=== PATIENT | male | born 1950 | race African-American/Black ===

== ENCOUNTER 2018-12-13 16:37 | Emergency (ER) | payer OTHER ==
[2018-12-13] MEDS ORDERED: IPRATROPIUM BROM 0.5MG/2.5ML ONE (18:11)
[2018-12-13] MEDS ORDERED: ALBUTEROL 2.5 MG/3 ML NEB SOL ONE (18:11)
[2018-12-13] MEDS ORDERED: HYDROCODONE/CHLORPHEN 5 ML/OSYR ONE (18:12)
--- NOTE | 2018-12-13 18:13 | RAD REPORT ---
EXAM DESCRIPTION: Clay Single View12/13/2018 6:02 pm CLINICAL HISTORY: Cough COMPARISON: 2017 FINDINGS: The lungs appear clear of acute infiltrate. The heart is mildly enlarged. Elevation left hemidiaphragm persists IMPRESSION: No acute abnormalities displayed
[2018-12-13 18:38] LABS: Absolute Lymphocytes (CBC) 1.7 K/uL (0.7-4.9); Absolute Monocytes 1.1 K/uL (0.1-1.3); Absolute Neutrophil 2.5 K/uL (1.8-8.0); Basophils % 0.9 % (0-1.3); Eosinophils % 3.5 % (0-4.4); Hematocrit 39.3 % (39.6-49.0); Lymphocytes % 30.7 % (15.3-44.8); MPV 10.1 fL (7.6-11.3); Monocytes % 19.8 % (3.3-12.3); RBC Red Blood Cell Count 4.48 M/uL (4.33-5.43)
[2018-12-13 18:49] LABS: Potassium 3.8 mmol/L (3.5-5.1)
--- NOTE | 2018-12-13 18:57 | ER ---
Nurse's Notes [facility] Name: Tang Lewis Age: 68 yrs Sex: Male : 1950 Arrival Date: 12/13/2018 Time: 16:40 Bed 19 Private MD: Orlando Abraham Diagnosis: Acute bronchitis Presentation: 12/13 17:00 Presenting complaint: Nonproductive cough, chest pain, pain with cough, chills, sv malaise, nausea, and dizziness x 4 days. Transition of care: patient was not received from another setting of care. Onset of symptoms was December 10, 2018. Risk Assessment: Do you want to hurt yourself or someone else? Patient reports no desire to harm self or others. Care prior to arrival: None. 17:00 Method Of Arrival: Ambulatory sv 17:00 Acuity: [place] 3 sv 17:30 Initial Sepsis Screen: Does the patient meet any 2 criteria? No. Patient's initial em sepsis screen is negative. Does the patient have a suspected source of infection? No. Patient's initial sepsis screen is negative. Historical: - Allergies: 17:02 NSAIDS; sv - Home Meds: 17:02 colchicine 0.6 mg Oral cap QID PRN [Active]; BP med [Active]; sv - PMHx: 17:02 Hypertension; Gout; sv - PSHx: 17:02 Knee surgery; sv - Immunization history:: Adult Immunizations up to date. - Social history:: Smoking status: Patient/guardian denies using tobacco. - Ebola Screening: : No symptoms or risks identified at this time. Screenin:30 Abuse screen: Denies threats or abuse. Nutritional screening: No deficits noted. em Tuberculosis screening: No symptoms or risk factors identified. Fall Risk None identified. Assessment: 17:30 General: Appears in no apparent distress. comfortable, Behavior is calm, cooperative, em Denies fever. Pain: Complains of pain in chest Pain does not radiate. Pain began 4 days. Neuro: Level of Consciousness is awake, alert, obeys commands, Oriented to person, place, time, situation, Reports dizziness. Cardiovascular: Heart tones S1 S2 present Capillary refill < 3 seconds Patient's skin is warm and dry. Respiratory: Reports shortness of breath on exertion cough that is productive, Airway is patent Respiratory effort is even, unlabored, Respiratory pattern is regular, symmetrical, Breath sounds are diminished in right posterior upper lobe, right posterior middle lobe and right posterior lower lobe Onset: The symptoms/episode began/occurred 4 days ago, the patient has mild shortness of breath. Derm: Skin is intact, is healthy with good turgor, Skin is pink, warm \T\ dry. Musculoskeletal: Capillary refill < 3 seconds, Range of motion: intact in all extremities. 17:45 Reassessment: I agree with previous assessment. hb 18:37 Reassessment: Patient appears in no apparent distress at this time. Patient and/or em family updated on plan of care and expected duration. Pain level reassessed. Patient is alert, oriented x 3, equal unlabored respirations, skin warm/dry/pink. Patient denies pain at this time. Patient states symptoms have improved. Vital Signs: 17:00 BP 140 / 66; Pulse 79; Resp 16; Temp 99.4; Pulse Ox 97% on R/A; Pain 8/10; sv 18:30 BP 143 / 75; Pulse 94; Resp 18; Pulse Ox 99% on R/A; em ED Course: 16:40 Patient arrived in ED. mr 16:41 Orlando Abraham MD is Private Physician. mr 17:00 Triage completed. sv 17:02 Arm band placed on. sv 17:07 Grant Prado LVN is Primary Nurse. em 17:18 Kenji Meyer PA is PHCP. jr8 17:18 Sundeep Nagel MD is Attending Physician. jr8 17:30 Patient has correct armband on for positive identification. Placed in gown. Bed in low em position. Call light in reach. Side rails up X2. Pulse ox on. NIBP on. 17:30 Patient maintains SpO2 saturation greater than 95% on room air. em 18:02 XRAY Chest (1 view) - STROKE In Process Unspecified. EDMS 18:56 Orlando Abraham MD is Referral Physician. jr8 19:09 No provider procedures requiring assistance completed. em 19:09 Patient did not have IV access during this emergency room visit. em Administered Medications: 18:05 Drug: Tussionex Pennkinetic ER 5 ml Route: PO; em 19:07 Follow up: Response: No adverse reaction; Marked relief of symptoms em 18:10 Drug: Albuterol - atroVENT (3:1) (2.5 mg - 0.5 mg) 3 ml Route: Nebulizer; em 19:07 Follow up: Response: No adverse reaction; Marked relief of symptoms em Outcome: 18:56 Discharge ordered by MD. mtz 19:13 Discharged to home ambulatory. em 19:13 Condition: good 19:13 Discharge instructions given to patient, Instructed on discharge instructions, follow up and referral plans. medication usage, Demonstrated understanding of instructions, follow-up care, medications, Prescriptions given X 2. 19:14 Patient left the ED. em Signatures: Dispatcher [employer] Keara Lopez RN RN Taylor Olivier mr Grant Prado, MEDICAL DEVICE ASSEMBLER MEDICAL DEVICE ASSEMBLER em Kenji Meyer PA PA jr8 Baxter, Heather RN RN Corrections: (The following items were deleted from the chart) 17:01 17:00 Presenting complaint: Nonproductive cough, chills, malaise, nausea, and dizziness sv x 4 days sv
--- NOTE | 2018-12-13 18:57 | EDPHYS ---
Physician Documentation [facility] Name: Tang Lewis Age: 68 yrs Sex: Male : 1950 Arrival Date: 12/13/2018 Time: 16:40 Bed 19 Private MD: Orlando Abraham ED Physician Sundeep Nagel HPI: 12/13 18:03 This 68 yrs old Black Male presents to ER via Ambulatory with complaints of Chest jr8 Tightness, Dizziness, Cough. 18:03 The patient or guardian reports cough, that is intermittent, described as moderate, jr8 with no sputum, difficulty breathing. Onset: The symptoms/episode began/occurred gradually, 4 day(s) ago. Severity of symptoms: At their worst the symptoms were moderate, in the emergency department the symptoms are unchanged. Modifying factors: The symptoms are alleviated by nothing, the symptoms are aggravated by nothing. Associated signs and symptoms: Pertinent negatives: chest pain, ear ache, fever, nausea, rhinorrhea, sore throat, vomiting. It is unknown whether or not the patient has had similar symptoms in the past. The patient has not recently seen a physician. Continued cough and congestion with shortness of breath that started about 4 days ago. Worse at night when lying down . Historical: - Allergies: 17:02 NSAIDS; sv - Home Meds: 17:02 colchicine 0.6 mg Oral cap QID PRN [Active]; BP med [Active]; sv - PMHx: 17:02 Hypertension; Gout; sv - PSHx: 17:02 Knee surgery; sv - Immunization history:: Adult Immunizations up to date. - Social history:: Smoking status: Patient/guardian denies using tobacco. - Ebola Screening: : No symptoms or risks identified at this time. ROS: 18:03 Eyes: Negative for injury, pain, redness, and discharge, ENT: Negative for injury, jr8 pain, and discharge, Neck: Negative for injury, pain, and swelling, Cardiovascular: Negative for chest pain, palpitations, and edema, Abdomen/GI: Negative for abdominal pain, nausea, vomiting, diarrhea, and constipation, Back: Negative for injury and pain, MS/Extremity: Negative for injury and deformity, Skin: Negative for injury, rash, and discoloration, Neuro: Negative for headache, weakness, numbness, tingling, and seizure. 18:03 Respiratory: Positive for cough, shortness of breath. Exam: 18:03 Eyes: Pupils equal round and reactive to light, extra-ocular motions intact. Lids and jr8 lashes normal. Conjunctiva and sclera are non-icteric and not injected. Cornea within normal limits. Periorbital areas with no swelling, redness, or edema. ENT: Nares patent. No nasal discharge, no septal abnormalities noted. Tympanic membranes are normal and external auditory canals are clear. Oropharynx with no redness, swelling, or masses, exudates, or evidence of obstruction, uvula midline. Mucous membranes moist. Neck: Trachea midline, no thyromegaly or masses palpated, and no cervical lymphadenopathy. Supple, full range of motion without nuchal rigidity, or vertebral point tenderness. No Meningismus. Cardiovascular: Regular rate and rhythm with a normal S1 and S2. No gallops, murmurs, or rubs. Normal PMI, no JVD. No pulse deficits. Abdomen/GI: Soft, non-tender, with normal bowel sounds. No distension or tympany. No guarding or rebound. No evidence of tenderness throughout. Back: No spinal tenderness. No costovertebral tenderness. Full range of motion. Skin: Warm, dry with normal turgor. Normal color with no rashes, no lesions, and no evidence of cellulitis. MS/ Extremity: Pulses equal, no cyanosis. Neurovascular intact. Full, normal range of motion. Neuro: Awake and alert, GCS 15, oriented to person, place, time, and situation. Cranial nerves II-XII grossly intact. Motor strength 5/5 in all extremities. Sensory grossly intact. Cerebellar exam normal. Normal gait. 18:03 Respiratory: the patient does not display signs of respiratory distress, Respirations: normal, symetrical, no use of accessory muscles, no grunting, no evidence of nasal flaring, no prolonged exhalations, no pursed lip breathing, no retractions, no shallow respirations, no splinting, no tachypnea, Breath sounds: wheezing: expiratory that is mild, is heard in the left posterior lower lobe, right posterior middle lobe and right posterior lower lobe. Vital Signs: 17:00 BP 140 / 66; Pulse 79; Resp 16; Temp 99.4; Pulse Ox 97% on R/A; Pain 8/10; sv 18:30 BP 143 / 75; Pulse 94; Resp 18; Pulse Ox 99% on R/A; em MDM: 17:18 Patient medically screened. jr8 18:55 Data reviewed: vital signs, nurses notes, lab test result(s), radiologic studies, plain jr8 films. Data interpreted: Pulse oximetry: on room air is 97 %. Interpretation: normal. Test interpretation: by ED physician or midlevel provider: plain radiologic studies, Negative for acute findings on CXR. Counseling: I had a detailed discussion with the patient and/or guardian regarding: the historical points, exam findings, and any diagnostic results supporting the discharge/admit diagnosis, lab results, radiology results, the need for outpatient follow up, a family practitioner, to return to the emergency department if symptoms worsen or persist or if there are any questions or concerns that arise at home. Response to treatment: the patient's symptoms have markedly improved after treatment. 12/13 17:41 Order name: CBC with Diff; Complete Time: 18:40 [facility] 12/13 17:41 Order name: Basic Metabolic Panel; Complete Time: 18:50 8 12/13 17:42 Order name: XRAY Chest (1 view) - STROKE; Complete Time: 18:15 [facility] Administered Medications: 18:05 Drug: Tussionex Pennkinetic ER 5 ml Route: PO; em 19:07 Follow up: Response: No adverse reaction; Marked relief of symptoms em 18:10 Drug: Albuterol - atroVENT (3:1) (2.5 mg - 0.5 mg) 3 ml Route: Nebulizer; em 19:07 Follow up: Response: No adverse reaction; Marked relief of symptoms em Disposition: 12/14 07:16 Co-signature as Attending Physician, Sundeep Nagel MD I agree with the assessment and jose alfredo plan of care. Disposition: 12/13/18 18:56 Discharged to Home. Impression: Acute bronchitis. - Condition is Stable. - Discharge Instructions: Acute Bronchitis, Adult. - Prescriptions for Prednisone 20 mg Oral Tablet - take 1 tablet by ORAL route once daily for 5 days; 5 tablet. Guaifenesin AC 10- 100 mg/5 mL Oral Liquid - take 10 milliliter by ORAL route every 4 hours As needed; 240 milliliter. - Medication Reconciliation Form, Thank You Letter, Antibiotic Education, Prescription Opioid Use form. - Follow up: Orlando Abraham MD; When: 5 - 6 days; Reason: Recheck today's complaints, Continuance of care, Re-evaluation by your physician. - Problem is new. - Symptoms have improved. Signatures: Dispatcher [employer] Keara Lopez, YURI RN Sundeep Schofield MD MD cha Munoz, Edgar, MARKETING WRITER MARKETING WRITER em Kenji Meyer, PA PA jr8 Corrections: (The following items were deleted from the chart) 12/13 19:07 17:42 IV Saline Lock ordered. jr8 em 19:14 18:56 12/13/2018 18:56 Discharged to Home. Impression: Acute bronchitis. Condition is em Stable. Forms are Medication Reconciliation Form, Thank You Letter, Antibiotic Education, Prescription Opioid Use. Follow up: Orlando Abraham; When: 5 - 6 days; Reason: Recheck today's complaints, Continuance of care, Re-evaluation by your physician. Problem is new. Symptoms have improved. jr8
[2018-12-13 19:19] VITALS: TEMP 99.4
[2018-12-13 19:20] VITALS: BP 143/75; O2SAT 99
== END 2018-12-13 19:14 | disposition home or self-care (01) ==
LOC: ER 16:37
DX: J20.9 Acute bronchitis, unspecified (principal); I10 Essential (primary) hypertension; M10.9 Gout, unspecified
CPT/HCPCS: 36415; 71045; 80048; 85025; 94640; 99285

== ENCOUNTER 2019-04-10 20:22 | Emergency (ER) | payer OTHER ==
[2019-04-10] MEDS ORDERED: ACETAMINOPHEN 500 MG TAB ONE (20:46)
--- NOTE | 2019-04-10 21:09 | RAD REPORT ---
EXAM DESCRIPTION: RAD -Hand Left 3 View - 04/10/2019 8:56 pm CLINICAL HISTORY: Left hand pain FINDINGS: No fracture or dislocation is seen. No bone or joint abnormality
[2019-04-10] MEDS ORDERED: HYDROCODONE/APAP 7.5/325 MG TAB ONE (21:30)
--- NOTE | 2019-04-10 21:36 | ER ---
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 Transition of care: patient was not received from another setting of care. Onset of symptoms is unknown. Risk Assessment: Do you want to hurt yourself or someone else? Patient reports no desire to harm self or others. Initial Sepsis Screen: Does the patient meet any 2 criteria? No. Patient's initial sepsis screen is negative. Does the patient have a suspected source of infection? No. Patient's initial sepsis screen is negative. Care prior to arrival: None. 20:38 Method Of Arrival: Ambulatory ak1 20:38 Acuity: [place] 4 ak1 Triage Assessment: 20:39 General: Appears in no apparent distress. Behavior is calm, cooperative. ak1 Historical: - Allergies: 20:39 NSAIDS; ak1 - Home Meds: 20:39 colchicine 0.6 mg Oral cap QID PRN [Active]; Lisinopril Oral [Active]; ak1 - PMHx: 20:39 Gout; Hypertension; ak1 - PSHx: 20:39 Knee surgery; neck sx - hardware; ak1 - Immunization history:: Adult Immunizations unknown. - Social history:: Smoking status: Patient/guardian denies using tobacco. - Ebola Screening: : No symptoms or risks identified at this time. Screenin:40 Abuse screen: Denies threats or abuse. Denies injuries from another. Nutritional ak1 screening: No deficits noted. Tuberculosis screening: No symptoms or risk factors identified. Fall Risk None identified. Assessment: 20:41 General: Appears in no apparent distress. uncomfortable, Behavior is calm, cooperative, rr5 appropriate for age. Pain: Complains of pain in palmar aspect of proximal phalanx of left little finger Pain radiates to left hand Pain currently is 9 out of 10 on a pain scale. Quality of pain is described as aching, Pain began gradually, Is intermittent. Neuro: Level of Consciousness is awake, alert, obeys commands, Oriented to person, place, time. Cardiovascular: Capillary refill < 3 seconds Patient's skin is warm and dry. Respiratory: Airway is patent Respiratory effort is even, unlabored, Respiratory pattern is regular, symmetrical. GI: No signs and/or symptoms were reported involving the gastrointestinal system. : No signs and/or symptoms were reported regarding the genitourinary system. EENT: No signs and/or symptoms were reported regarding the EENT system. Derm: Skin is intact, Skin temperature is warm. Musculoskeletal: Circulation, motion, and sensation intact. Capillary refill < 3 seconds, Range of motion: limited in DIP of left little finger, PIP of left little finger and MCP of left little finger Swelling present in left hand. 21:50 Reassessment: Patient appears in no apparent distress at this time. Patient is alert, rr5 oriented x 3, equal unlabored respirations, skin warm/dry/pink. discharge instruction given and explained without complaints made. Patient states feeling better. Patient states symptoms have improved. 21:58 Reassessment: Patient appears in no apparent distress at this time. Patient is alert, rr5 oriented x 3, equal unlabored respirations, skin warm/dry/pink. splint rechecked by ED provider and discharge. Vital Signs: 20:37 BP 144 / 73; Pulse 82; Resp 16; Temp 97.6(TE); Pulse Ox 97% on R/A; Weight 122.47 kg ak1 (R); Height 6 ft. 1 in. (185.42 cm) (R); Pain 9/10; 21:45 BP 116 / 63; Pulse 75; Resp 17; Pulse Ox 99% on R/A; Pain 7/10; rr5 20:37 Body Mass Index 35.62 (122.47 kg, 185.42 cm) ak1 ED Course: 20:27 Patient arrived in ED. es 20:27 Orlando Abraham MD is Private Physician. es 20:37 Arm band placed on Patient placed in an exam room, on a stretcher, on pulse oximetry, ak1 Patient notified of wait time. 20:39 Triage completed. ak1 20:39 Sundeep Ellington PA is PHCP. cp 20:39 Armando Beach MD is Attending Physician. cp 20:41 Garay, [place], RN is Primary Nurse. rr5 20:41 Patient has correct armband on for positive identification. Bed in low position. Call ak1 light in reach. Side rails up X 1. Pulse ox on. NIBP on. 20:58 XRAY Hand LEFT 3 View In Process Unspecified. EDMS 21:51 Orthoglass splint: Ulnar gutter/Boxer splint applied on left forearm. done by member of technical staff rr5 [place]. Administered Medications: 20:48 Drug: Tylenol 1000 mg Route: PO; rr5 21:59 Follow up: Response: No adverse reaction rr5 21:32 Drug: Hydrocodone-Acetaminophen (7.5 mg-325 mg) 1 tabs Route: PO; rr5 21:32 Follow up: rass 0 rr5 21:59 Follow up: Response: No adverse reaction; RASS: Alert and Calm (0) rr5 Intake: Outcome: 21:35 Discharge ordered by MD. cp 21:58 Patient left the ED. rr5 Signatures: Dispatcher [employer] Debbie Castellano Amber RN RN ak1 Sundeep Ellington PA PA cp Roque, Raymond, RN RN rr5
--- NOTE | 2019-04-10 21:36 | EDPHYS ---
Physician Documentation [facility] Name: Tang Lewis Age: 68 yrs Sex: Male : 1950 Arrival Date: 04/10/2019 Time: 20:27 Bed 20 Private MD: Orlando Abraham ED Physician Armando Beach HPI: 04/10 21:00 This 68 yrs old Black Male presents to ER via Ambulatory with complaints of Hand Pain, cp Arm Pain. 21:00 The patient or guardian reports pain, tenderness. The complaints affect the medial cp aspect of left hand. Context: resulted from an unknown cause. Onset: The symptoms/episode began/occurred 3 day(s) ago. 21:00 Associated signs and symptoms: Pertinent positives: tingling distally, weakness of left cp small finger. Severity of symptoms: in the emergency department the symptoms are unchanged, despite home interventions. Historical: - Allergies: 20:39 NSAIDS; ak1 - Home Meds: 20:39 colchicine 0.6 mg Oral cap QID PRN [Active]; Lisinopril Oral [Active]; ak1 - PMHx: 20:39 Gout; Hypertension; ak1 - PSHx: 20:39 Knee surgery; neck sx - hardware; ak1 - Immunization history:: Adult Immunizations unknown. - Social history:: Smoking status: Patient/guardian denies using tobacco. - Ebola Screening: : No symptoms or risks identified at this time. ROS: 21:05 Constitutional: Negative for body aches, chills, fever, poor PO intake. cp 21:05 Eyes: Negative for injury, pain, redness, and discharge. cp 21:05 ENT: Negative for drainage from ear(s), ear pain, sore throat, difficulty swallowing, difficulty handling secretions. 21:05 Cardiovascular: Negative for chest pain, palpitations. 21:05 Respiratory: Negative for cough, shortness of breath, wheezing. 21:05 Abdomen/GI: Negative for abdominal pain, nausea, vomiting, and diarrhea. 21:05 MS/extremity: Positive for pain, tingling, of the left hand, Negative for injury or acute deformity, decreased range of motion. 21:05 Skin: Negative for cellulitis, rash. 21:05 Neuro: Positive for weakness, of the left hand. 21:05 All other systems are negative. Exam: 21:15 Constitutional: The patient appears in no acute distress, alert, awake, non-toxic, well cp developed, well nourished. 21:15 Musculoskeletal/extremity: Extremities: grossly normal except: noted in the left hand: cp pain, tenderness, along medial aspect and left small finger, ROM: limited active range of motion, in the left small finger, limited passive range of motion due to pain, in the left small finger, Perfusion: the extremity is normally perfused throughout, the along medial aspect left hand Tingling of extremity. 21:15 Skin: cellulitis, is not appreciated, no rash present. Vital Signs: 20:37 BP 144 / 73; Pulse 82; Resp 16; Temp 97.6(TE); Pulse Ox 97% on R/A; Weight 122.47 kg ak1 (R); Height 6 ft. 1 in. (185.42 cm) (R); Pain 9/10; 21:45 BP 116 / 63; Pulse 75; Resp 17; Pulse Ox 99% on R/A; Pain 7/10; rr5 20:37 Body Mass Index 35.62 (122.47 kg, 185.42 cm) ak1 Procedures: 21:55 Splinting: Splint applied to left hand using Orthoglass splint, ulna gutter type. cp applied by tech. Examined by me, post splint application: neurovascular intact, Patient tolerated well. MDM: 20:49 Patient medically screened. cp 21:34 Data reviewed: vital signs, nurses notes, radiologic studies, plain films. cp 21:34 Differential diagnosis: dislocation, closed fracture, tendonitis, neuropathy. Test cp interpretation: by ED physician or midlevel provider: xrays of left hand negative for fracture. Counseling: I had a detailed discussion with the patient and/or guardian regarding: the historical points, exam findings, and any diagnostic results supporting the discharge/admit diagnosis, radiology results, the need for outpatient follow up, a family practitioner, to return to the emergency department if symptoms worsen or persist or if there are any questions or concerns that arise at home. 04/10 20:43 Order name: XRAY Hand LEFT 3 View; Complete Time: 21:23 cp 04/10 21:23 Interpretation: Report reviewed. cp 04/10 21:24 Order name: Splint - Ulnar Gutter; Complete Time: 21:51 cp Administered Medications: 20:48 Drug: Tylenol 1000 mg Route: PO; rr5 21:59 Follow up: Response: No adverse reaction rr5 21:32 Drug: Hydrocodone-Acetaminophen (7.5 mg-325 mg) 1 tabs Route: PO; rr5 21:32 Follow up: rass 0 rr5 21:59 Follow up: Response: No adverse reaction; RASS: Alert and Calm (0) rr5 Disposition: 22:05 Chart complete. cp 04/11 06:01 Co-signature as Attending Physician, Armando Beach MD I agree with the assessment and tw4 plan of care. Disposition: 04/10/19 21:35 Discharged to Home. Impression: Pain in left hand. - Condition is Stable. - Discharge Instructions: Hand Pain. - Prescriptions for Ultram 50 mg Oral Tablet - take 1 tablet by ORAL route every 6 hours As needed; 15 tablet. Medrol (Nicholas) 4 mg Oral Tablets, Dose Pack - take 1 tablet by ORAL route as directed - follow package instructions; 1 packet. - Medication Reconciliation Form, Thank You Letter, Antibiotic Education, Prescription Opioid Use form. - Follow up: Private Physician; When: 2 - 3 days; Reason: Recheck today's complaints. - Problem is new. - Symptoms have improved. Signatures: Dispatcher [employer] EDMS Yoana Johnson, RN RN ak1 Sundeep Ellington PA PA cp Armando Beach MD MD tw4 Guanakito Garay RN RN rr5 Corrections: (The following items were deleted from the chart) 04/10 21:58 21:35 04/10/2019 21:35 Discharged to Home. Impression: Pain in left hand. Condition is rr5 Stable. Forms are Medication Reconciliation Form, Thank You Letter, Antibiotic Education, Prescription Opioid Use. Follow up: Private Physician; When: 2 - 3 days; Reason: Recheck today's complaints. Problem is new. Symptoms have improved. cp
[2019-04-10 22:47] VITALS: TEMP 97.6
[2019-04-10 22:49] VITALS: BP 116/63; O2SAT 99
== END 2019-04-10 21:58 | disposition home or self-care (01) ==
LOC: ER 20:22
DX: M79.642 Pain in left hand (principal); I10 Essential (primary) hypertension; M10.9 Gout, unspecified
CPT/HCPCS: 99284

== ENCOUNTER 2019-07-03 18:42 | Emergency (ER) | payer OTHER ==
[2019-07-03 19:42] LABS: Absolute Lymphocytes (CBC) 3.1 K/uL (0.7-4.9); Basophils % 1.2 % (0-1.3); Hematocrit 40.6 % (39.6-49.0); Lymphocytes % 37.6 % (15.3-44.8); MPV 9.6 fL (7.6-11.3); RBC Red Blood Cell Count 4.58 M/uL (4.33-5.43)
[2019-07-03 20:05] LABS: ALT/SGPT 29 U/L (12-78); AST/SGOT 24 U/L (15-37); Albumin 3.6 g/dL (3.4-5.0); Alkaline Phosphatase 107 U/L (45-117); BUN Blood Urea Nitrogen 23 mg/dL (7-18); Bicarbonate 27 mmol/L (21-32); Bilirubin Direct < 0.1 mg/dL (0-0.2); Bilirubin Total 0.3 mg/dL (0.2-1.0); Glucose Level 141 mg/dL (74-106); Lipase 112 U/L (73-393); Potassium 3.9 mmol/L (3.5-5.1); Protein, Total 7.3 g/dL (6.4-8.2); Sodium Level 143 mmol/L (136-145)
--- NOTE | 2019-07-03 22:18 | ER ---
Nurse's Notes [facility] Name: Tang Lewis Age: 68 yrs Sex: Male : 1950 Arrival Date: 07/03/2019 Time: 18:45 Bed 30 Private MD: Orlando Abraham Diagnosis: Cellulitis of umbilicus;Cutaneous abscess of umbilicus Presentation: 07/03 18:46 Presenting complaint: Patient states: I had a stomach mesh placed a few years ago and la1 not I think the suture is coming up or something, I am having a lot of pain and some bleeding around the area. Transition of care: patient was not received from another setting of care. Onset of symptoms was July 03, 2019. Risk Assessment: Do you want to hurt yourself or someone else? Patient reports no desire to harm self or others. Initial Sepsis Screen: Does the patient meet any 2 criteria? No. Patient's initial sepsis screen is negative. Does the patient have a suspected source of infection? No. Patient's initial sepsis screen is negative. Care prior to arrival: None. 18:46 Method Of Arrival: Ambulatory la1 18:46 Acuity: [place] 3 la1 Historical: - Allergies: 18:46 NSAIDS; la1 - PMHx: 18:46 Gout; Hypertension; la1 - PSHx: 18:46 stomach mesh; cervical spine sx; la1 - Immunization history:: Adult Immunizations up to date. - Social history:: Smoking status: Patient/guardian denies using tobacco. - Ebola Screening: : No symptoms or risks identified at this time. Screenin:18 Abuse screen: Denies threats or abuse. Denies injuries from another. Nutritional ca1 screening: No deficits noted. Tuberculosis screening: No symptoms or risk factors identified. Fall Risk IV access (20 points). Assessment: 19:18 General: Appears in no apparent distress. comfortable, Behavior is calm, cooperative, ca1 appropriate for age. Pain: Complains of pain in umbilical area Pain radiates to groin Pain currently is 8 out of 10 on a pain scale. Quality of pain is described as burning, Pain began 2 months ago Is continuous. Neuro: Level of Consciousness is awake, alert, obeys commands, Oriented to person, place, time, situation, Appropriate for age. Cardiovascular: Heart tones S1 S2 present Capillary refill < 3 seconds Pulses are all present. Respiratory: Airway is patent Respiratory effort is even, unlabored, Respiratory pattern is regular, symmetrical, Breath sounds are clear bilaterally. GI: Abdomen is round non-distended, Bowel sounds present X 4 quads. Abd is soft X 4 quads Abdomen is tender to palpation in umbilical area. : No deficits noted. No signs and/or symptoms were reported regarding the genitourinary system. EENT: No deficits noted. No signs and/or symptoms were reported regarding the EENT system. Derm: Skin is intact, is healthy with good turgor, Skin is pink, warm \T\ dry. Musculoskeletal: Circulation, motion, and sensation intact. Capillary refill < 3 seconds, Range of motion: intact in all extremities. Vital Signs: 18:48 BP 154 / 84; Pulse 87; Resp 16; Temp 98.1; Pulse Ox 100% on R/A; Weight 119.29 kg; la1 Height 6 ft. 1 in. (185.42 cm); 20:00 BP 152 / 83; Pulse 83; Resp 16; Pulse Ox 100% on R/A; rv 21:00 BP 160 / 101; Pulse 78; Resp 16; Pulse Ox 100% on R/A; rv 22:24 BP 147 / 87; Pulse 87; Resp 16; Pulse Ox 100% ; rv 18:48 Body Mass Index 34.70 (119.29 kg, 185.42 cm) la1 ED Course: 18:45 Patient arrived in ED. mr 18:45 Orlando Abraham MD is Private Physician. mr 18:46 Arm band placed on left wrist. la1 18:48 Triage completed. la1 19:10 Vicki Milan, YURI is Primary Nurse. ca1 19:14 Toney Rodas MD is Attending Physician. kdr 19:18 Patient has correct armband on for positive identification. Placed in gown. Bed in low ca1 position. Call light in reach. Side rails up X 1. lunchroom monitor on. Pulse ox on. NIBP on. Warm blanket given. 19:18 No provider procedures requiring assistance completed. ca1 19:40 Inserted saline lock: 20 gauge in right antecubital area, using aseptic technique. rv Blood collected. 21:53 CT Abd/Pelvis - Without Contrast In Process Unspecified. EDMS 22:16 Orlando Abraham MD is Referral Physician. kdr 22:16 Mingo Tolentino MD is Referral Physician. kdr 22:25 IV discontinued, intact, bleeding controlled, No redness/swelling at site. Pressure rv dressing applied. Administered Medications: No medications were administered Outcome: 22:17 Discharge ordered by . kdr 22:25 Discharged to home ambulatory. rv 22:25 Condition: good 22:25 Discharge instructions given to patient, Instructed on discharge instructions, follow up and referral plans. medication usage, Demonstrated understanding of instructions, follow-up care, medications, Prescriptions given X 2. 22:25 Patient left the ED. rv Signatures: Dispatcher [employer] EDMS Toney Rodas MD MD kdr OlivierTaylor mr Treva, Abraham, RN RN la1 Toan Butler RN RN rv Vicki Milan RN RN ca1
--- NOTE | 2019-07-03 22:19 | EDPHYS ---
Physician Documentation [facility] Name: Tang Lewis Age: 68 yrs Sex: Male : 1950 Arrival Date: 07/03/2019 Time: 18:45 Bed 30 Private MD: Orlando Abraham ED Physician Toney Rodas HPI: 07/03 19:39 This 68 yrs old Black Male presents to ER via Ambulatory with complaints of Abdominal kdr Pain. 19:39 The patient presents with abdominal pain in the periumbilical area. The patient had a kdr prior hernia repair with mesh. He has had the edge/corner of the mesh palpable for the past three years but has now started to be more irritated and appears to be draining at the 11:00 position of the umbilical rim. Onset: The symptoms/episode began/occurred gradually, 3 month(s) ago. The symptoms do not radiate. Associated signs and symptoms: none. Pertinent negatives: There is some purulent and bloody drainage from the wound a the umbilicus . The symptoms are described as achy, dull, intermittent. Modifying factors: The symptoms are alleviated by nothing, the symptoms are aggravated by touching the area. Severity of pain: At its worst the pain was mild in the emergency department the pain is unchanged. The patient has experienced similar episodes in the past, chronically. The patient has not recently seen a physician, Attempted to see Dr. Tolentino several; weeks ago, he had done the original surgery, but due to an insurance change, he would not be seen unless he paid out of pocket. Historical: - Allergies: 18:46 NSAIDS; la1 - PMHx: 18:46 Gout; Hypertension; la1 - PSHx: 18:46 stomach mesh; cervical spine sx; la1 - Immunization history:: Adult Immunizations up to date. - Social history:: Smoking status: Patient/guardian denies using tobacco. - Ebola Screening: : No symptoms or risks identified at this time. ROS: 19:39 Constitutional: Negative for fever, chills, and weight loss, Eyes: Negative for injury, kdr pain, redness, and discharge, Neck: Negative for injury, pain, and swelling, Cardiovascular: Negative for chest pain, palpitations, and edema, Respiratory: Negative for shortness of breath, cough, wheezing, and pleuritic chest pain, Back: Negative for injury and pain, : Negative for injury, bleeding, discharge, and swelling, MS/Extremity: Negative for injury and deformity, Skin: Negative for injury, rash, and discoloration, Neuro: Negative for headache, weakness, numbness, tingling, and seizure activity. Psych: Negative for depression, anxiety, suicide ideation, homicidal ideation, and hallucinations, Allergy/Immunology: Negative for hives, rash, and allergies, Endocrine: Negative for neck swelling, polydipsia, polyuria, polyphagia, and marked weight changes, Hematologic/Lymphatic: Negative for swollen nodes, abnormal bleeding, and unusual bruising. 19:39 Abdomen/GI: Positive for pain and drainage from a wound on her umbilicus. Exam: 19:39 Constitutional: This is a well developed, well nourished patient who is awake, alert, kdr and in no acute distress. Head/Face: Normocephalic, atraumatic. Eyes: Pupils equal round and reactive to light, extra-ocular motions intact. Lids and lashes normal. Conjunctiva and sclera are non-icteric and not injected. Cornea within normal limits. Periorbital areas with no swelling, redness, or edema. Neck: Trachea midline, no thyromegaly or masses palpated, and no cervical lymphadenopathy. Supple, full range of motion without nuchal rigidity, or vertebral point tenderness. No Meningismus. Chest/axilla: Normal chest wall appearance and motion. Nontender with no deformity. No lesions are appreciated. Cardiovascular: Regular rate and rhythm with a normal S1 and S2. No gallops, murmurs, or rubs. Normal PMI, no JVD. No pulse deficits. Respiratory: Lungs have equal breath sounds bilaterally, clear to auscultation and percussion. No rales, rhonchi or wheezes noted. No increased work of breathing, no retractions or nasal flaring. Back: No spinal tenderness. No costovertebral tenderness. Full range of motion. 19:39 Abdomen/GI: Inspection: distension, obese Bowel sounds: active, diminished, in all quadrants, Palpation: soft, mild abdominal tenderness, in the umbilical area, There is a small wound to the 11:00 position of the umbilical rim. I was unable to express any blood or purulent materials. Vital Signs: 18:48 BP 154 / 84; Pulse 87; Resp 16; Temp 98.1; Pulse Ox 100% on R/A; Weight 119.29 kg; la1 Height 6 ft. 1 in. (185.42 cm); 20:00 BP 152 / 83; Pulse 83; Resp 16; Pulse Ox 100% on R/A; rv 21:00 BP 160 / 101; Pulse 78; Resp 16; Pulse Ox 100% on R/A; rv 22:24 BP 147 / 87; Pulse 87; Resp 16; Pulse Ox 100% ; rv 18:48 Body Mass Index 34.70 (119.29 kg, 185.42 cm) la1 MDM: 19:39 Data reviewed: vital signs, nurses notes, lab test result(s), radiologic studies. kdr Counseling: I had a detailed discussion with the patient and/or guardian regarding: the historical points, exam findings, and any diagnostic results supporting the discharge/admit diagnosis, lab results, radiology results. 22:17 Patient medically screened. [facility] 07/03 19:16 Order name: Basic Metabolic Panel kdr 07/03 19:16 Order name: CBC with Diff kdr 07/03 19:16 Order name: Creatinine for Radiology kdr 07/03 19:16 Order name: Hepatic Function kdr 07/03 19:16 Order name: Lipase kdr 07/03 19:49 Order name: CBC with Automated Diff; Complete Time: 20:41 EDGA 07/03 19:16 Order name: IV Saline Lock; Complete Time: 19:31 [facility] 07/03 19:16 Order name: Labs collected and sent; Complete Time: 19:31 [facility] 07/03 20:05 Order name: Basic Metabolic Panel; Complete Time: 20:41 EDGA 07/03 20:05 Order name: Liver (Hepatic) Function; Complete Time: 20:41 EDGA 07/03 20:05 Order name: Lipase; Complete Time: 20:41 EDGA 07/03 20:09 Order name: Creatinine (Radiology Only); Complete Time: 20:41 EDGA 07/03 20:45 Order name: CT Abd/Pelvis - Without Contrast kdr Administered Medications: No medications were administered Disposition: 07/03/19 22:17 Discharged to Home. Impression: Cellulitis of umbilicus, Cutaneous abscess of umbilicus. - Condition is Stable. - Discharge Instructions: Skin Abscess, Cellulitis, Adult. - Prescriptions for Clindamycin HCl 300 mg Oral Capsule - take 1 capsule by ORAL route every 6 hours for 7 days; 28 capsule. Bactrim DS 800- 160 mg Oral Tablet - take 1 tablet by ORAL route every 12 hours for 7 days; 14 tablet. - Medication Reconciliation Form, Thank You Letter, Antibiotic Education, Prescription Opioid Use form. - Follow up: Orlando Abraham MD; When: 2 - 3 days; Reason: If symptoms return, Further diagnostic work-up, Recheck today's complaints, Continuance of care, Re-evaluation by your physician. Follow up: Mingo Tolentino MD; When: 2 - 3 days; Reason: If symptoms return, Further diagnostic work-up, Recheck today's complaints, Continuance of care, Re-evaluation by your physician. - Problem is an ongoing problem. - Symptoms are unchanged. Signatures: Dispatcher [employer] EDMS Toney Rodas MD MD kdr Abraham Tilley RN RN la1 Toan Butler RN RN rv Corrections: (The following items were deleted from the chart) 22:25 22:17 07/03/2019 22:17 Discharged to Home. Impression: Cellulitis of umbilicus; rv Cutaneous abscess of umbilicus. Condition is Stable. Forms are Medication Reconciliation Form, Thank You Letter, Antibiotic Education, Prescription Opioid Use. Follow up: Orlando Abraham; When: 2 - 3 days; Reason: If symptoms return, Further diagnostic work-up, Recheck today's complaints, Continuance of care, Re-evaluation by your physician. Follow up: Mingo Tolentino; When: 2 - 3 days; Reason: If symptoms return, Further diagnostic work-up, Recheck today's complaints, Continuance of care, Re-evaluation by your physician. Problem is an ongoing problem. Symptoms are unchanged. kdr
[2019-07-03 23:31] VITALS: TEMP 98.1; O2SAT 100
[2019-07-03 23:35] VITALS: BP 147/87
--- NOTE | 2019-07-05 14:24 | RAD REPORT ---
EXAM DESCRIPTION: CT - Abdomen Pelvis Wo Contrast - 07/03/2019 10:19 pm CLINICAL HISTORY: Periumbilical pain. COMPARISON: None. TECHNIQUE: CT scan of the abdomen and pelvis was performed without IV contrast. This exam was perfor med according to our departmental dose-optimization program, which includes automated exposure contro l, adjustment of the mA and/or kV according to patient size and/or use of iterative reconstruction te chnique. FINDINGS: The lung bases are clear. No pleural or pericardial effusions. The gallbladder is contract ed, limiting evaluation. Liver, spleen, pancreas, adrenal glands, and kidneys are unremarkable with a tiny nonobstructing stone in the left kidney. No hydronephrosis or bladder stones. The prostate glan d and seminal vesicles are unremarkable. No small bowel obstruction. The appendix is normal. No evidence of acute diverticulitis. No adenopath y, free fluid, or free air is identified. The aorta is normal caliber. The osseous structures are int act. No abnormal body wall hernia is seen. IMPRESSION: 1. No acute abdominal or pelvic pathology. 2. Please note the gallbladder is contracted which limits evaluation. Consider gallbladder ultrasou nd if there is high clinical concern. Electronically signed by: Emil Randall MD 07/03/2019 10:03 PM [employer] Due to temporary technical issues with the PACS/Fluency reporting system, reports are being signed by the in house radiologist as a courtesy to ensure prompt reporting. The interpreting radiologist is f ully responsible for the content of the report.
== END 2019-07-03 22:25 | disposition home or self-care (01) ==
LOC: ER 18:42
DX: L03.316 Cellulitis of umbilicus (principal); L02.216 Cutaneous abscess of umbilicus
CPT/HCPCS: 36415; 74176; 80048; 80076; 83690; 85025; 99284

== ENCOUNTER 2019-09-19 14:24 | Emergency (ER) | payer OTHER ==
[2019-09-19 15:17] LABS: Absolute Lymphocytes (CBC) 2.4 K/uL (0.7-4.9); Basophils % 0.5 % (0-1.3); Hematocrit 38.9 % (39.6-49.0); Lymphocytes % 30.5 % (15.3-44.8); MPV 9.5 fL (7.6-11.3); RBC Red Blood Cell Count 4.42 M/uL (4.33-5.43)
[2019-09-19 15:26] LABS: Potassium 3.8 mmol/L (3.5-5.1)
--- NOTE | 2019-09-19 16:05 | RAD REPORT ---
EXAM DESCRIPTION: CT - Abdomen Pelvis Wo Contrast - 09/19/2019 3:44 pm CLINICAL HISTORY: Abdominal pain COMPARISON: June 2019 TECHNIQUE: Computed axial tomography of the abdomen and pelvis was obtained. IV and oral contrast we re not requested. All CT scans are performed using dose optimization technique as appropriate and may include automated exposure control or mA/KV adjustment according to patient size. FINDINGS: The evaluation of solid organs, vessels and bowel is limited secondary to the lack of con trast administration. The liver, spleen, pancreas, adrenals and right kidney appear grossly normal. 4 millimeter nonobstructing left renal calculus. 43 millimeter low-density left renal mass nonspecifi c without IV contrast but may represent a cyst. The appendix is normal. There is no evidence of diverticulitis. Prostate gland is mildly enlarged. 4.5 x 1 centimeter ill-defined increased density is present within the anterior subcutaneous fat in t he periumbilical region. IMPRESSION: 4.5 x 1 centimeter ill-defined increased density is present within the anterior subcutan eous fat in the periumbilical region. This probably represents infection. Evaluation for a discrete a bscess is limited secondary to lack of IV contrast. If clinically indicated ultrasound may be helpful for further evaluation Nonobstructing left renal calculus
--- NOTE | 2019-09-19 18:22 | EDPHYS ---
Physician Documentation [facility] Name: Tang Lewis Age: 69 yrs Sex: Male : 1950 Arrival Date: 09/19/2019 Time: 14: Bed 23 Private MD: ED Physician Toney Rodas HPI: 09/19 14:57 This 69 yrs old Black Male presents to ER via Ambulatory with complaints of High Blood kdr Pressure, Incisional Drainage. 14:58 The patient presents with abdominal pain in the periumbilical area. The patient also kdr c/o umbilical pain and drainage. He had a hernia repair several years ago with Dr. Tolentino and due to an insurance change, he is no longer able to see Dr. Tolentino. He has also been unable to take his BP medications and is concerned that he was briefly dizzy in voodoo that his BP was elevated since he has been off of his medications for more than a few weeks. Onset: The symptoms/episode began/occurred at an unknown time. The symptoms do not radiate. Associated signs and symptoms: none. The symptoms are described as achy, dull. Modifying factors: The symptoms are alleviated by nothing, the symptoms are aggravated by nothing. Severity of pain: At its worst the pain was mild in the emergency department the pain is unchanged. The patient has experienced similar episodes in the past, chronically. The patient has not recently seen a physician. Historical: - Allergies: 14:41 NSAIDS; ss - PMHx: 14:41 Gout; Hypertension; ss - PSHx: 14:41 cervical spine sx; umbilical hernia repair (Dr. Tolentino); ss - Immunization history:: Adult Immunizations up to date. - Coronavirus screen:: The patient has NOT traveled to [place], [place], or [place] in the past 14 days. Proceed with normal triage process as indicated. - Social history:: Smoking status: Patient denies any tobacco usage or history of. - Ebola Screening: : Patient denies exposure to infectious person Patient denies travel to an Ebola-affected area in the 21 days before illness onset. ROS: 14:58 Constitutional: Negative for fever, chills, and weight loss, Eyes: Negative for injury, kdr pain, redness, and discharge, Neck: Negative for injury, pain, and swelling, Cardiovascular: Negative for chest pain, palpitations, and edema, Respiratory: Negative for shortness of breath, cough, wheezing, and pleuritic chest pain, Back: Negative for injury and pain, : Negative for injury, bleeding, discharge, and swelling, MS/Extremity: Negative for injury and deformity, Skin: Negative for injury, rash, and discoloration, Neuro: Negative for headache, weakness, numbness, tingling, and seizure activity. Psych: Negative for depression, anxiety, suicide ideation, homicidal ideation, and hallucinations, Allergy/Immunology: Negative for hives, rash, and allergies, Endocrine: Negative for neck swelling, polydipsia, polyuria, polyphagia, and marked weight changes, Hematologic/Lymphatic: Negative for swollen nodes, abnormal bleeding, and unusual bruising. 14:58 Abdomen/GI: Positive for abdominal pain, Umbilical drainage, Negative for nausea, vomiting, and diarrhea, abdominal cramps, abdominal distension, anorexia, dysphagia, hematemesis, black/tarry stool, rectal pain, rectal bleeding, bowel incontinence. Exam: 14:58 Constitutional: This is a well developed, well nourished patient who is awake, alert, kdr and in no acute distress. Head/Face: Normocephalic, atraumatic. 14:58 Abdomen/GI: Inspection: distension, that is mild, obese Bowel sounds: active, Palpation: soft, mild abdominal tenderness, in the umbilical area. Vital Signs: 14:41 BP 122 / 71; Pulse 101; Resp 16; Temp 97.5(O); Pulse Ox 97% on R/A; Weight 121.11 kg; ss Height 6 ft. 1 in. (185.42 cm); Pain 9/10; 15:45 BP 125 / 73; Pulse 92; Resp 18; Pulse Ox 100% on R/A; aj1 16:45 BP 136 / 83; Pulse 95; Resp 18; Pulse Ox 95% on R/A; aj1 17:45 BP 128 / 85; Pulse 88; Resp 18; Pulse Ox 97% ; aj1 18:45 BP 135 / 79; Pulse 92; Resp 18; Pulse Ox 99% on R/A; aj1 14:41 Body Mass Index 35.23 (121.11 kg, 185.42 cm) ss MDM: 14:58 Data reviewed: vital signs, nurses notes, lab test result(s), radiologic studies. kdr Counseling: I had a detailed discussion with the patient and/or guardian regarding: the historical points, exam findings, and any diagnostic results supporting the discharge/admit diagnosis, lab results, radiology results, the need for outpatient follow up. 18:22 Patient medically screened. [facility] 09/19 14:53 Order name: CBC with Diff; Complete Time: 16:03 kdr 09/19 14:53 Order name: Chem 7; Complete Time: 16:03 kdr 09/19 15:31 Order name: Abdomen ; Complete Time: 17:08 EDMS Administered Medications: 18:30 Drug: Ancef 1 grams Route: IVPB; Site: right antecubital; aj1 19:20 Follow up: Response: No adverse reaction aj1 Disposition: 09/19/19 18:22 Discharged to Home. Impression: Cutaneous abscess of abdominal wall - umbilicus. - Condition is Stable. - Discharge Instructions: Skin Abscess, [id number]. - Prescriptions for Keflex 500 mg Oral Capsule - take 1 capsule by ORAL route every 6 hours for 10 days; 40 capsule. - Medication Reconciliation Form, Thank You Letter, Antibiotic Education form. - Follow up: Roni Manning MD; When: Tomorrow; Reason: If symptoms return, Further diagnostic work-up, Recheck today's complaints, Continuance of care, Re-evaluation by your physician. - Problem is an ongoing problem. - Symptoms are unchanged. - Notes: Follow-up with Nigel Hollins tomorrow for further evaluation of your casey-umbilical abscess Signatures: Dispatcher [employer] [facility] Katy Modi RN RN aj1 Toney Rodas MD MD [facility] Karyna Serrato RN RN ss Corrections: (The following items were deleted from the chart) 15:31 14:54 Abdomen Pelvis W Con+CT.RAD.BRZ ordered. [facility] EDAR 19:26 18:22 09/19/2019 18:22 Discharged to Home. Impression: Cutaneous abscess of abdominal aj1 wall - umbilicus. Condition is Stable. Forms are Medication Reconciliation Form, Thank You Letter, Antibiotic Education, Prescription Opioid Use. Follow up: Dr. Roni Manning; When: Tomorrow; Reason: If symptoms return, Further diagnostic work-up, Recheck today's complaints, Continuance of care, Re-evaluation by your physician. Problem is an ongoing problem. Symptoms are unchanged. kdr
--- NOTE | 2019-09-19 18:22 | ER ---
Nurse's Notes [facility] Name: Tang Lewis Age: 69 yrs Sex: Male : 1950 Arrival Date: 09/19/2019 Time: 14:26 Bed 23 Private MD: Diagnosis: Cutaneous abscess of abdominal wall-umbilicus Presentation: 09/19 14:36 Presenting complaint: Patient states: out of BP medications x 2 weeks. Inflammation and ss intermittent purulent drainage to umbilicus x 2 months. Denies fever. PT reports that Dr. Tolentino did a umbilical hernia repair surgery 2 years ago, but he will not see him now because he does not take his insurance. Transition of care: patient was not received from another setting of care. Onset of symptoms is unknown. Risk Assessment: Do you want to hurt yourself or someone else? Patient reports no desire to harm self or others. Initial Sepsis Screen: Does the patient meet any 2 criteria? HR > 90 bpm. Does the patient have a suspected source of infection? No. Patient's initial sepsis screen is negative. Care prior to arrival: None. 14:36 Method Of Arrival: Ambulatory ss 14:36 Acuity: [place] 3 ss Historical: - Allergies: 14:41 NSAIDS; ss - PMHx: 14:41 Gout; Hypertension; ss - PSHx: 14:41 cervical spine sx; umbilical hernia repair (Dr. Tolentino); ss - Immunization history:: Adult Immunizations up to date. - Coronavirus screen:: The patient has NOT traveled to [place], [place], or [place] in the past 14 days. Proceed with normal triage process as indicated. - Social history:: Smoking status: Patient denies any tobacco usage or history of. - Ebola Screening: : Patient denies exposure to infectious person Patient denies travel to an Ebola-affected area in the 21 days before illness onset. Screenin:30 Abuse screen: Denies threats or abuse. Denies injuries from another. Nutritional aj1 screening: No deficits noted. Tuberculosis screening: No symptoms or risk factors identified. Fall Risk None identified. Assessment: 14:30 General: Appears in no apparent distress. uncomfortable, Behavior is calm, cooperative, aj1 appropriate for age. Pain: Complains of pain in abdomen. Neuro: Level of Consciousness is awake, alert, obeys commands, Oriented to person, place, time, situation. Cardiovascular: Patient's skin is warm and dry. Respiratory: Airway is patent Respiratory effort is even, unlabored, Respiratory pattern is regular, symmetrical. GI: Abdomen is round distended, Bowel sounds present X 4 quads. Abd is soft and non tender X 4 quads. : No signs and/or symptoms were reported regarding the genitourinary system. EENT: No signs and/or symptoms were reported regarding the EENT system. Derm: No signs and/or symptoms reported regarding the dermatologic system. Skin is pink, warm \T\ dry. normal. Musculoskeletal: No signs and/or symptoms reported regarding the musculoskeletal system. Circulation, motion, and sensation intact. 15:30 Reassessment: Patient appears in no apparent distress at this time. No changes from aj1 previously documented assessment. Patient and/or family updated on plan of care and expected duration. Pain level reassessed. Patient is alert, oriented x 3, equal unlabored respirations, skin warm/dry/pink. 16:30 Reassessment: Patient appears in no apparent distress at this time. No changes from aj1 previously documented assessment. Patient and/or family updated on plan of care and expected duration. Pain level reassessed. Patient is alert, oriented x 3, equal unlabored respirations, skin warm/dry/pink. 17:30 Reassessment: Patient and/or family updated on plan of care and expected duration. Pain aj1 level reassessed. General: Appears in no apparent distress. comfortable, Behavior is calm, cooperative, appropriate for age. Neuro: Level of Consciousness is awake, alert, obeys commands, Oriented to person, place, time, situation. Cardiovascular: Patient's skin is warm and dry. Respiratory: Airway is patent Respiratory effort is even, unlabored, Respiratory pattern is regular, symmetrical. GI: Abdomen is round distended. Derm: Skin is pink, warm \T\ dry. normal. Musculoskeletal: Circulation, motion, and sensation intact. 18:30 Reassessment: Patient appears in no apparent distress at this time. No changes from aj1 previously documented assessment. Patient and/or family updated on plan of care and expected duration. Pain level reassessed. Patient is alert, oriented x 3, equal unlabored respirations, skin warm/dry/pink. 19:24 Reassessment: Patient appears in no apparent distress at this time. No changes from aj1 previously documented assessment. Patient and/or family updated on plan of care and expected duration. Pain level reassessed. Patient is alert, oriented x 3, equal unlabored respirations, skin warm/dry/pink. Vital Signs: 14:41 BP 122 / 71; Pulse 101; Resp 16; Temp 97.5(O); Pulse Ox 97% on R/A; Weight 121.11 kg; ss Height 6 ft. 1 in. (185.42 cm); Pain 9/10; 15:45 BP 125 / 73; Pulse 92; Resp 18; Pulse Ox 100% on R/A; aj1 16:45 BP 136 / 83; Pulse 95; Resp 18; Pulse Ox 95% on R/A; aj1 17:45 BP 128 / 85; Pulse 88; Resp 18; Pulse Ox 97% ; aj1 18:45 BP 135 / 79; Pulse 92; Resp 18; Pulse Ox 99% on R/A; aj1 14:41 Body Mass Index 35.23 (121.11 kg, 185.42 cm) ED Course: 14:26 Patient arrived in ED. as 14:28 Toney Rodsa MD is Attending Physician. kdr 14:30 Patient has correct armband on for positive identification. Bed in low position. Call aj1 light in reach. 14:30 No provider procedures requiring assistance completed. aj1 14:40 Triage completed. ss 14:41 Arm band placed on right wrist. ss 14:45 Initial lab(s) drawn, by wi, sent to lab. Inserted saline lock: 20 gauge in right aj1 antecubital area, using aseptic technique. Blood collected. 14:57 Katy Modi, RN is Primary Nurse. aj1 14:58 Radiology exam delayed due to lab results not completed at this time. (BUN/Creatinine). mw3 15:43 CT completed. Patient tolerated procedure well. Patient moved back from CT. bq 15:44 Abdomen In Process Unspecified. EDMS 18:21 Roni Manning MD is Referral Physician. kdr 19:25 IV discontinued, intact, bleeding controlled, No redness/swelling at site. Pressure aj1 dressing applied. Administered Medications: 18:30 Drug: Ancef 1 grams Route: IVPB; Site: right antecubital; aj1 19:20 Follow up: Response: No adverse reaction aj1 Outcome: 18:22 Discharge ordered by . kdr 19:26 Discharged to home ambulatory. aj1 19:26 Condition: good 19:26 Discharge instructions given to patient, Instructed on discharge instructions, follow up and referral plans. medication usage, Demonstrated understanding of instructions, follow-up care, medications, Prescriptions given X 1. 19:26 Patient left the ED. aj1 Signatures: Dispatcher [employer] EDKaty Pinon RN RN aj1 Toney Rodas MD MD [facility] Jen Trimble Amelia as Smirch, Shelby, RN RN Radha Dueñas 3 Corrections: (The following items were deleted from the chart) 14:55 14:36 Acuity: [place] 5 [facility]
[2019-09-19] MEDS ORDERED: CEFAZOLIN/SWI 1gm 1 GM/10 ML SYR ONE (18:31)
[2019-09-19 19:35] VITALS: TEMP 97.5
[2019-09-19 19:40] VITALS: BP 135/79; O2SAT 99
== END 2019-09-19 19:26 | disposition home or self-care (01) ==
LOC: ER 14:24
DX: L02.211 Cutaneous abscess of abdominal wall (principal)
CPT/HCPCS: 85025; 80048; 36415; 74176; 96374; 99284; J0690

== ENCOUNTER 2019-11-17 07:15 | Day surgery (SDC) | payer OTHER ==
[2019-11-17] MEDS ORDERED: BUPIVACA 0.25%/EPI 0.0005%/PF 30 ML VIAL ONE (07:30)
[2019-11-17] MEDS ORDERED: CEFAZOLIN/SWI 1gm 1 GM/10 ML SYR ONE (07:42)
[2019-11-17] MEDS ORDERED: Ringers Lactate 1,000 ML IV ONE ×2 (07:42→09:35)
[2019-11-17] MEDS ORDERED: MIDAZOLAM HCL 2 MG/2 ML INJ ONE (08:36)
[2019-11-17] MEDS ORDERED: propofoL 200 MG/20 ML VIAL IV ONE (08:51)
[2019-11-17] MEDS ORDERED: FENTANYL CITR 100 MCG/2 ML ONE (08:52)
[2019-11-17] MEDS ORDERED: ONDANSETRON 4 MG/2 ML VIAL ONE ×2 (08:53→10:27)
[2019-11-17] MEDS ORDERED: LIDOCAINE 2% MPF 5 ML VIAL ONE (08:53)
[2019-11-17] MEDS ORDERED: ROCURONIUM 50 MG/5 ML VIAL IV ONE (08:53)
[2019-11-17] MEDS ORDERED: EPHEDRINE SULF 50 MG/ML VIAL ONE (09:12)
[2019-11-17] MEDS ORDERED: Phenylephrine HCl 10 MG/ML 1 ML VIAL ONE (09:32)
--- NOTE | 2019-11-17 09:59 | P.OP ---
Preoperative diagnosis: Infected Umbilical Hernia Mesh Postoperative diagnosis: Infected Umbilical Hernia Mesh Primary procedure: Removal of Infected Umbilical Hernia Mesh Secondary procedure: Primary Hernia Repair (NO MESH) Anesthesia: GETA + Local Estimated blood loss: <5cc Specimen: Hernia Mesh and Hernia Findings: Fistulous Drainage of Umbilical Hernia Complications: None Implants: none Transferred to: Recovery Room Condition: Good
[2019-11-17] MEDS ORDERED: NEOSTIGMINE 1 MG/ML -5 ML ONE (10:01)
[2019-11-17] MEDS ORDERED: GLYCOPYRROLATE 0.2 MG/ML SYR ONE (10:02)
[2019-11-17] MEDS: HYDROMORPHONE HCL 1 MG/ML INJ ONE ×4 (10:25→10:57)
[2019-11-17] MEDS ORDERED: HYDROCODONE/APAP 5/325 MG TAB ONE (12:04)
[2019-11-17 13:39] VITALS: BP 135/68; O2SAT 98
[2019-11-17 13:41] VITALS: TEMP 97.4
--- NOTE | 2019-11-17 20:06 | OP ---
Date of Procedure: 11/17/2019 Surgeon: Wu Dewey MD, Brief History Of Present Illness: Patient is a 69-year-old male who comes in with a history of infected draining umbilical hernia, status post mesh placement years before. He states that he has had a draining sinus tract intermittently during this time period, which drained clear serous fluid and occasionally blood. As of late shortly, he started developing some change in the character of the drainage. It became more pus like and it would be emanating from the mesh every 2 to 3 days. He noticed some drainage and it would squeeze and expressed purulent pus at that time associated with some blood. Then, it would dry out for several days and recur over and over again. It seemed to be getting larger, more progressive, more painful, more red, and tender to the touch. As such, he was deemed appropriate for removal of the infected hernia mesh. Preoperative Diagnosis: Infected umbilical hernia mesh. Postoperative Diagnosis: Infected umbilical hernia mesh. Procedure Performed: Removal of infected umbilical hernia mesh. Secondary Procedure: Primary hernia repair with no mesh. Anesthesia: General endotracheal plus local 0.25% Marcaine with epinephrine. Estimated Blood Loss: Less than 5 mL. Specimens: Hernia mesh and hernia sac. Findings: Fistulous drainage from umbilical hernia. Complications: None. Implants: None. Disposition: Transferred to recovery room in good condition. Procedure In Detail: After informed consent was obtained, patient was brought to the operating room, prepped and draped in usual sterile fashion. After adequate anesthesia was achieved, a cut down through subcutaneous tissues and an elliptical incision around a fistulous appearing tract at the umbilicus. After I removed this ellipse of discolored skin and granulated tissue with fistulous tract, I dissected down through subcutaneous tissue circumferentially around to find the hernia mesh, which appeared to be somewhat discolored. I circumferentially dissected this out and sent it off for pathologic examination after it was completely removed. I irrigated the area and found the omentum to be firmly adherent to the anterior abdominal wall. I circumferentially digitized this until using a combination of electrocautery and blunt dissection to allow for circumferential dissection of this area. I then grasped the edges of this, irrigated the wound, and suctioned out this area until completely dry. I then closed the hernia defect with a 0 Ethibond in a running fashion with good approximation of the tissues. I then irrigated the subcutaneous skin and closed the deep dermal space with interrupted 3-0 Vicryl sutures and closed the skin with a 4-0 Monocryl in a running fashion with Dermabond placed over the top. A pressure dressing was then placed over the top. Patient tolerated the procedure well without evidence of any complication, transferred to PACU in good condition. All counts were correct at the end of the case. SANDRA/ROSE MARY Voice ID: [id number] Report ID: [id number]
== END 2019-11-17 13:25 | disposition home or self-care (01) ==
LOC: OR 07:15
PROVIDERS: ATTEND Surgery
PROC: 0WQF0ZZ Repair Abdominal Wall, Open Approach (ICD-10-PCS; principal; 2019-11-17 08:30)
DX: K42.9 Umbilical hernia without obstruction or gangrene (principal); L03.316 Cellulitis of umbilicus; L98.8 Other specified disorders of the skin and subcutaneous tissue; K66.0 Peritoneal adhesions (postprocedural) (postinfection); T85.79XA Infection and inflammatory reaction due to other internal prosthetic devices, implants and grafts, initial encounter; Y83.8 Other surgical procedures as the cause of abnormal reaction of the patient, or of later complication, without mention of misadventure at the time of the procedure; I10 Essential (primary) hypertension; Z79.899 Other long term (current) drug therapy
CPT/HCPCS: 88302; 49585; J2704; J2370; J2250; J3010; J1170 ×2; J2710; J0690; J7120 ×2; J2405 ×2

== ENCOUNTER 2020-04-14 07:20 | Day surgery (SDC) | payer OTHER ==
[2020-04-14] MEDS ORDERED: propofoL 200 MG/20 ML VIAL IV ONE ×4 (07:33→10:08)
[2020-04-14] MEDS ORDERED: GLYCOPYRROLATE 0.2 MG/ML SYR ONE ×2 (07:34→10:08)
[2020-04-14] MEDS ORDERED: LIDOCAINE 1% MPF 30 ML VIAL ONE ×2 (07:34→10:08)
[2020-04-14] MEDS ORDERED: Ringers Lactate 1,000 ML IV ONE (07:49)
--- NOTE | 2020-04-14 09:40 | ENDO RPT ---
[address], [address] COLONOSCOPY PROCEDURE REPORT EXAM DATE: 04/14/2020 PATIENT NAME: Tang Lewis MR #: [id number] BIRTHDATE: 1950 ATTENDING: Wu Dewey DR STATUS: outpatient COMMERCIAL ESTIMATOR: Poppy Del Rio RN and Franco Song [facility] INDICATIONS: The patient is a 69 yr old Male here for a colonoscopy due to colon cancer screening PROCEDURE PERFORMED: Colonoscopy with biopsy - cold polypectomy MEDICATIONS: Per Anesthesia. ESTIMATED BLOOD LOSS: None CONSENT: The patient understands the risks and benefits of the procedure and understands that these risks include, but are not limited to: sedation, allergic reaction, infection, perforation and/or bleeding. Alternative means of evaluation and treatment include, among others: physical exam, x-rays, and/or surgical intervention. The patient elects to proceed with this endoscopic procedure. DESCRIPTION OF PROCEDURE: During intra-op preparation period all mechanical medical equipment was checked for proper function. Hand hygiene and appropriate measures for infection prevention was taken. Procedure, possible complications, alternatives including, but not limited to possibility of bleeding, perforation, tear, infection, sepsis, need for surgery, need for blood transfusion, were explained to the patient. After the risks, benefits and alternatives of the procedure were thoroughly explained, Informed consent was verified, confirmed and timeout was successfully executed by the treatment team. The patient was placed in the left lateral position. A digital rectal exam was performed and revealed internal hemorrhoids. After appropriate level of anesthesia, the scope was passed. The EC-[id number] ([id number]) and [id number] ([id number]) endoscope was introduced through the anus and advanced to the ascending colon. The quality of the prep was fair. The instrument was then slowly withdrawn as the colon was NOT fully examined. The scope was advanced through the colon with multiple passes, and mulitple attempts to pass to the cecum were unsusccessful, attempts includedd multiple reposition attempts, abdominal pressure, multiple different scopes (adult and pediatric). Scope withdrawal time was 10 minutes. COLON FINDINGS: Two small polypoid shaped and smooth polyps were found in the right colon. A polypectomy was performed with a cold snare. The resection was complete, the polyp tissue was completely retrieved and sent to histology. Retroflexed views revealed no abnormalities. The scope was then completely withdrawn from the patient and the procedure terminated. ADVERSE EVENTS: There were no complications. IMPRESSIONS: Two small polyps were found in the right colon; polypectomy was performed with a cold snare RECOMMENDATIONS: 1. fiber rich diet 2. await biopsy results 3. avoid NSAIDS for 2 weeks 4. follow-up: office 2 week(s) 5. Monitor for any evidence of rectal bleeding. 6. hemorrhoidal hygiene 7. yearly hemoccult starting in 4 years RECALL: Return in 2 week(s) for Colonoscopy, pending biopsy results. Unable to examine Cecum due to long redundant colon and no therapeutic scope - Will need repeat colonoscopy in 1 month as the colonoscopy was incomplete Wu Dewey DR eSigned: Wu Dewey DR 04/14/2020 9:40 AM cc: CPT CODES: ICD9 CODES: PATIENT NAME: Tang Lewis MR#: [id number]
[2020-04-14 15:25] VITALS: TEMP 97.9
[2020-04-14 15:28] VITALS: O2SAT 94
[2020-04-14 15:29] VITALS: BP 114/65
== END 2020-04-14 10:25 | disposition home or self-care (01) ==
LOC: OR 07:20
PROVIDERS: ATTEND Surgery
PROC: 0DBK8ZX Excision of Ascending Colon, Via Natural or Artificial Opening Endoscopic, Diagnostic (ICD-10-PCS; principal; 2020-04-14 08:30)
DX: Z12.11 Encounter for screening for malignant neoplasm of colon (principal); D12.2 Benign neoplasm of ascending colon; K64.8 Other hemorrhoids; Z11.59 Encounter for screening for other viral diseases; I10 Essential (primary) hypertension; Z79.899 Other long term (current) drug therapy
CPT/HCPCS: 88305; 45385; U0002; J2704 ×4; J7120

== ENCOUNTER 2020-05-04 17:22 | Inpatient (IN) | payer OTHER ==
--- NOTE | 2020-05-04 19:21 | RAD REPORT ---
EXAM DESCRIPTION: CT - Head Brain Wo Cont - 05/04/2020 6:50 pm CLINICAL HISTORY: left arm tingling COMPARISON: Head Brain Wo Cont dated 08/12/2017 TECHNIQUE: Axial 5 mm thick images of the head were obtained without IV contrast. All CT scans are performed using dose optimization technique as appropriate and may include automated exposure control or mA/KV adjustment according to patient size. FINDINGS: No intracranial hemorrhage, mass, edema or shift of mid-line structures. No acute infarcti on changes seen. No abnormal extra-axial fluid collections. Ventricles are normal. Mastoid air cells and visualized portions of the paranasal sinuses are clear. No acute bony findings. IMPRESSION: Negative non-contrast CT head examination. No significant change from comparison. If the patient has continued findings suspicious for acute ischemic event, MR imaging could be perfor med.
--- NOTE | 2020-05-04 19:22 | RAD REPORT ---
EXAM DESCRIPTION: RAD - Chest Single View - 05/04/2020 7:00 pm CLINICAL HISTORY: chest pain, left arm pain/tingling COMPARISON: Portable November 2018 TECHNIQUE: AP portable chest image was obtained 05/04/2020 7:00 pm . FINDINGS: Lungs are clear. Interstitial pattern is similar to comparison. Heart and vasculature are normal. No measurable pleural effusion and no pneumothorax. No acute bony abnormality seen. No acute aortic findings suspected. IMPRESSION: No acute cardiopulmonary process. No significant interval change.
[2020-05-04 20:07] LABS: Absolute Lymphocytes (CBC) 2.2 K/uL (0.7-4.9); Basophils % 0.8 % (0-1.3); Hematocrit 38.9 % (39.6-49.0); Lymphocytes % 34.7 % (15.3-44.8); MPV 10.7 fL (7.6-11.3); RBC Red Blood Cell Count 4.29 M/uL (4.33-5.43)
[2020-05-04 20:09] LABS: Protime INR 1.03
[2020-05-04 20:23] LABS: Magnesium 2.2 mg/dL (1.8-2.4); Potassium 3.8 mmol/L (3.5-5.1); Troponin (Emerg Dept Use Only) 0.1 ng/mL (0.0-0.045)
--- NOTE | 2020-05-04 20:32 | EDPHYS ---
Physician Documentation [facility] Name: Tang Lewis Age: 69 yrs Sex: Male : 1950 Arrival Date: 05/04/2020 Time: 17:24 Bed 30 Private MD: Orlando Abraham ED Physician Gm Yoo HPI: 05/04 18:38 This 69 yrs old Black Male presents to ER via Ambulatory with complaints of Chest Pain. rn 18:50 The patient or guardian reports chest pain that is located primarily in the anterior rn chest wall, left. Onset: today. The pain does not radiate. The chest pain is described as aching. Duration: The patient or guardian reports a single episode, that is now resolved. Severity of pain: At its worst the pain was mild in the emergency department the pain has resolved. The patient has not experienced similar symptoms in the past. Reports earlier today felt left forearm pain, tingling in both hands, and left outer chest pain, was brief, now still having aching sensation in left forearm, but no chest pain or tingling in arms/hands. Has hx of chronic neck and back problems. No trauma. Called pcp, who told him to come in for eval. Denies focal neurological problems at this time. . Historical: - Allergies: 17:35 NSAIDS; ca1 - PMHx: 17:35 Gout; Hypertension; ca1 - PSHx: 17:35 cervical spine sx; umbilical hernia repair (Dr. Tolentino); ca1 - Immunization history:: Adult Immunizations up to date. - Social history:: Smoking status: Patient denies any tobacco usage or history of. - Family history:: not pertinent. - Hospitalizations: : No recent hospitalization is reported. ROS: 18:50 Constitutional: Negative for fever, chills, and weight loss, Neck: Negative for injury, rn pain, and swelling, Cardiovascular: Negative for palpitations, and edema, Respiratory: Negative for shortness of breath, cough, wheezing, and pleuritic chest pain, Abdomen/GI: Negative for abdominal pain, nausea, vomiting, diarrhea, and constipation, Back: Negative for injury and pain, MS/Extremity: Negative for injury and deformity, Skin: Negative for injury, rash, and discoloration, Neuro: Negative for headache, weakness, and seizure. Exam: 18:50 Constitutional: This is a well developed, well nourished patient who is awake, alert, rn and in no acute distress. Watching program on electronic device. Head/Face: Normocephalic, atraumatic. Neck: Trachea midline, no thyromegaly or masses palpated, and no cervical lymphadenopathy. Supple, full range of motion without nuchal rigidity, or vertebral point tenderness. No Meningismus. Cardiovascular: Regular rate and rhythm. No pulse deficits. Respiratory: No increased work of breathing, no retractions or nasal flaring. Abdomen/GI: soft, non-tender Skin: Warm, dry MS/ Extremity: Pulses equal, no cyanosis. Neurovascular intact. Full, normal range of motion. Equal circumference. No fluctuance/erythema/streaking/warmth. Neuro: Awake and alert, GCS 15, oriented to person, place, time, and situation. Cranial nerves II-XII grossly intact. Motor strength 5/5 in all extremities. Sensory grossly intact. Cerebellar exam normal. Vital Signs: 17:29 BP 154 / 92; Pulse 85; Resp 18 S; Temp 97.2(TE); Pulse Ox 99% on R/A; Weight 122.47 kg ca1 (R); Height 6 ft. 1 in. (185.42 cm) (R); Pain 7/10; 20:50 BP 125 / 73; Pulse 77; Resp 18; Pulse Ox 100% on R/A; aj1 21:23 BP 131 / 87; Pulse 68; Resp 18; Pulse Ox 98% on R/A; aj1 22:30 BP 144 / 90; Pulse 66; Resp 18; Pulse Ox 99% on R/A; aj1 17:29 Body Mass Index 35.62 (122.47 kg, 185.42 cm) ca1 MDM: 18:19 Patient medically screened. rn 18:50 Transition of care: After a detail discussion of the patient's case, care is rn transferred to Gm Yoo MD. 20:25 Differential diagnosis: abnormal EKG, acute myocardial infarction, acute pericarditis, mh7 coronary artery disease chest wall pain, costochondritis, myocarditis, pericarditis, pneumonia, pneumothorax. HEART Score: History: Moderately Suspicious (1), ECG: Non specific repolarization disturbance / LBTB / PM (1), Age: > or = 65 years (2), Risk Factors: 1 or 2 risk factors (1), [Hypercholesterolemia] [Hypertension] Troponin: > 1 and < 3 x normal limit (1), Total Score = 6. 20:27 The patient was given aspirin in the Emergency Department. Data reviewed: vital signs, 7 nurses notes, lab test result(s), cardiac enzymes, CBC, electrolytes, urinalysis, EKG, radiologic studies, CT scan, plain films. Data interpreted: Pulse oximetry: on room air is 99 %. Interpretation: normal. Counseling: I had a detailed discussion with the patient and/or guardian regarding: the historical points, exam findings, and any diagnostic results supporting the discharge/admit diagnosis, the presence of at least one elevated blood pressure reading (>120/80) during this emergency department visit, lab results, radiology results, the need for further work-up and treatment in the hospital. Response to treatment: the patient's symptoms have markedly improved after treatment. Physician consultation: Orlando Abraham MD was contacted at 20:25, regarding patient's condition, in the emergency department to see patient at 20:25. 05/04 18:37 Order name: Basic Metabolic Panel; Complete Time: 20:24 05/04 18:37 Order name: CBC with Diff; Complete Time: 20:18 05/04 18:37 Order name: Magnesium; Complete Time: 20:24 05/04 18:37 Order name: PT-INR; Complete Time: 20:18 05/04 18:37 Order name: Troponin (emerg Dept Use Only); Complete Time: 20:24 05/04 20:52 Order name: Lipid Profile [facility] 05/04 20:52 Order name: Troponin I [facility] 05/04 20:52 Order name: CBC with Automated Diff [facility] 05/04 20:52 Order name: CBC with Automated Diff [facility] 05/04 20:52 Order name: CBC with Automated Diff [facility] 05/04 20:52 Order name: CBC with Automated Diff [facility] 05/04 20:52 Order name: Comprehensive Metabolic Panel [facility] 05/04 20:52 Order name: Comprehensive Metabolic Panel [facility] 05/04 18:37 Order name: CT Head Brain wo Cont; Complete Time: 20:06 05/04 18:37 Order name: XRAY Chest (1 view); Complete Time: 20: 05/04 18:37 Order name: EKG; Complete Time: 18:38 rn 05/04 18:37 Order name: Cardiac monitoring; Complete Time: 19:18 rn 05/04 18:37 Order name: EKG - Nurse/Tech; Complete Time: 18:45 rn 05/04 18:37 Order name: IV Saline Lock; Complete Time: 19:54 rn 05/04 18:37 Order name: Labs collected and sent; Complete Time: 19:54 rn 05/04 18:37 Order name: O2 Per Protocol; Complete Time: 19:18 rn 05/04 18:37 Order name: O2 Sat Monitoring; Complete Time: 19:18 rn 05/04 20:52 Order name: CONS Physician Consult [facility] 05/04 20:53 Order name: Comprehensive Metabolic Panel [facility] 05/04 20:53 Order name: Comprehensive Metabolic Panel [facility] 05/04 20:53 Order name: Uric Acid [facility] 05/04 21:16 Order name: Urine Dipstick--Ancillary (enter results) tt3 05/04 21:25 Order name: Urine Dipstick-Ancillary [facility] Administered Medications: 20:50 Drug: Aspirin Chewable Tablet 324 mg Route: PO; aj1 21:50 Follow up: Response: No adverse reaction aj1 Disposition: 05/04/20 20:31 Hospitalization ordered by Orlando Abraham for Observation. Preliminary diagnosis is Chest pain, unspecified. - Bed requested for Telemetry/MedSurg (observation). - Status is Observation. aj1 - Condition is Stable. - Problem is new. - Symptoms have improved. Signatures: Dispatcher [employer] ED[facility] Katy Modi RN RN aj1 Kisha Sosa RN RN mw Nieto, Roman, MD MD rn Acob, Cheryl, RN RN ca1 Holmes, Maurice, MD MD mh7 Corrections: (The following items were deleted from the chart) 20:55 20:52 Troponin (Emerg Dept Use Only) ordered. [facility] 21:02 20:31 Hospitalization Ordered by Orlando Abraham MD for Observation. Preliminary diagnosis mw is Chest pain, unspecified. Bed requested for Telemetry/MedSurg (observation). Status is Observation. Condition is Stable. Problem is new. Symptoms have improved. mh7 23:14 21:02 05/04/2020 20:31 Hospitalization Ordered by Orlando Abraham MD for Observation. aj1 Preliminary diagnosis is Chest pain, unspecified. Bed requested for Telemetry/MedSurg (observation). Status is Observation. Condition is Stable. Problem is new. Symptoms have improved. mw
--- NOTE | 2020-05-04 20:32 | ER ---
Nurse's Notes [facility] Name: Tang Lewis Age: 69 yrs Sex: Male : 1950 Arrival Date: 05/04/2020 Time: 17:24 Bed 30 Private MD: Orlando Abraham Diagnosis: Chest pain, unspecified Presentation: 05/04 17:29 Chief complaint: Patient states: Tingling and numbness on L fingers, L arm pain for the ca1 last couple days. Chest discomfort and tightness this morning on the L side. Lightheaded with the chest discomfort. Denies nausea. Denies HX of heart attack and heart problems. Denies HX of CVA. Coronavirus screen: Client denies travel out of the [place] in the last 14 days. At this time, the client does not indicate any symptoms associated with coronavirus-19. Ebola Screen: Patient negative for fever greater than or equal to 101.5 degrees Fahrenheit, and additional compatible Ebola Virus Disease symptoms Patient denies exposure to infectious person. Patient denies travel to an Ebola-affected area in the 21 days before illness onset. No symptoms or risks identified at this time. Initial Sepsis Screen: Does the patient meet any 2 criteria? No. Patient's initial sepsis screen is negative. Does the patient have a suspected source of infection? No. Patient's initial sepsis screen is negative. Risk Assessment: Do you want to hurt yourself or someone else? Patient reports no desire to harm self or others. Onset of symptoms was May 04, 2020. 17:29 Method Of Arrival: Ambulatory ca1 17:29 Acuity: [place] 3 ca1 Historical: - Allergies: 17:35 NSAIDS; ca1 - PMHx: 17:35 Gout; Hypertension; ca1 - PSHx: 17:35 cervical spine sx; umbilical hernia repair (Dr. Tolentino); ca1 - Immunization history:: Adult Immunizations up to date. - Social history:: Smoking status: Patient denies any tobacco usage or history of. - Family history:: not pertinent. - Hospitalizations: : No recent hospitalization is reported. Screenin:51 Abuse screen: Denies threats or abuse. Denies injuries from another. Nutritional aj1 screening: No deficits noted. Tuberculosis screening: No symptoms or risk factors identified. 23:12 Fall Risk None identified. aj1 Assessment: 19:51 General: Appears in no apparent distress. uncomfortable, Behavior is calm, cooperative, aj1 appropriate for age. Pain: Complains of pain in left arm Pain does not radiate. Pain currently is 7 out of 10 on a pain scale. Quality of pain is described as crampy, tingling, Is continuous. Neuro: Level of Consciousness is awake, alert, obeys commands, Oriented to person, place, time, situation. Neuro: Moves all extremities. Full function Speech is normal. Cardiovascular: Reports chest pain, that is now resolved Heart tones S1 S2 present Patient's skin is warm and dry. Rhythm is sinus rhythm. Respiratory: Airway is patent Respiratory effort is even, unlabored, Respiratory pattern is regular, symmetrical. GI: No signs and/or symptoms were reported involving the gastrointestinal system. : No signs and/or symptoms were reported regarding the genitourinary system. EENT: No signs and/or symptoms were reported regarding the EENT system. Derm: No signs and/or symptoms reported regarding the dermatologic system. Skin is pink, warm \T\ dry. normal. Musculoskeletal: Range of motion: intact in all extremities. 20:50 Reassessment: Patient appears in no apparent distress at this time. No changes from aj1 previously documented assessment. Patient and/or family updated on plan of care and expected duration. Pain level reassessed. Patient is alert, oriented x 3, equal unlabored respirations, skin warm/dry/pink. 21:22 Reassessment: Patient appears in no apparent distress at this time. No changes from aj1 previously documented assessment. Patient and/or family updated on plan of care and expected duration. Pain level reassessed. Patient is alert, oriented x 3, equal unlabored respirations, skin warm/dry/pink. 22:30 Reassessment: Patient appears in no apparent distress at this time. No changes from aj1 previously documented assessment. Patient and/or family updated on plan of care and expected duration. Pain level reassessed. Patient is alert, oriented x 3, equal unlabored respirations, skin warm/dry/pink. 23:11 Reassessment: Patient appears in no apparent distress at this time. No changes from aj1 previously documented assessment. Patient and/or family updated on plan of care and expected duration. Pain level reassessed. Patient is alert, oriented x 3, equal unlabored respirations, skin warm/dry/pink. Vital Signs: 17:29 BP 154 / 92; Pulse 85; Resp 18 S; Temp 97.2(TE); Pulse Ox 99% on R/A; Weight 122.47 kg ca1 (R); Height 6 ft. 1 in. (185.42 cm) (R); Pain 7/10; 20:50 BP 125 / 73; Pulse 77; Resp 18; Pulse Ox 100% on R/A; aj1 21:23 BP 131 / 87; Pulse 68; Resp 18; Pulse Ox 98% on R/A; aj1 22:30 BP 144 / 90; Pulse 66; Resp 18; Pulse Ox 99% on R/A; aj1 17:29 Body Mass Index 35.62 (122.47 kg, 185.42 cm) ca1 ED Course: 17:24 Patient arrived in ED. ag5 17:24 Orlando Abraham MD is Private Physician. ag5 17:35 Triage completed. ca1 17:35 Arm band placed on right wrist. ca1 18:19 Morgan Hu MD is Attending Physician. rn 18:25 Azar Bailey RN is Primary Nurse. jl7 18:49 CT Head Brain wo Cont In Process Unspecified. EDMS 19:00 XRAY Chest (1 view) In Process Unspecified. EDMS 19:00 Report received from YURI Askew. aj1 19:08 Attending Physician role handed off by Morgan Hu MD 7 19:08 Gm Yoo MD is Attending Physician. 7 19:49 Inserted saline lock: 20 gauge in right antecubital area, using aseptic technique. aj1 Blood collected. 19:51 Patient has correct armband on for positive identification. collar setter overlock on. Pulse aj1 ox on. NIBP on. 19:51 No provider procedures requiring assistance completed. Patient maintains SpO2 aj1 saturation greater than 95% on room air. 20:30 Orlando Abraham MD is Hospitalizing Provider. 7 22:30 Report given to YURI Luu on 4th floor. aj1 23:12 Patient admitted, IV remains in place. intact, No redness/swelling at site. aj1 Administered Medications: 20:50 Drug: Aspirin Chewable Tablet 324 mg Route: PO; aj1 21:50 Follow up: Response: No adverse reaction aj1 Outcome: 20:31 Decision to Hospitalize by Provider. 7 23:14 Admitted to Tele accompanied by tech, via wheelchair, with chart. aj1 23:14 Condition: stable 23:14 Discharge instructions given to patient, Instructed on the need for admit, Demonstrated understanding of instructions. 23:14 Patient left the ED. aj1 Signatures: Dispatcher [employer] EDKaty Pinon RN RN aj1 Morgan Hu MD MD rn Leal, Jahala, RN RN 7 Vicki Milan RN RN ca1 Tere Estrada 5 Gm Yoo MD MD 7 Corrections: (The following items were deleted from the chart) 17:35 17:29 BP 154 / 92; Pulse 85bpm; Resp 18bpm; Spontaneous; Pulse Ox 99% RA; Temp 97.2F ca1 Temporal; 122.47 kg Reported; Height 6 ft. 1 in. Reported; BMI: 35.6; ca1
--- NOTE | 2020-05-04 20:37 | P.HP ---
Certification for Inpatient Patient admitted to: Observation With expected LOS: <2 Midnights Patient will require the following post-hospital care: None Practitioner: I am a practitioner with admitting privileges, knowledge of patient current condition, hospital course, and medical plan of care. Services: Services provided to patient in accordance with Admission requirements found in Title 42 Section 412.3 of the Code of Federal Regulations Patient History Date of Service: 05/04/20 Primary Care Provider: Jarad Reason for admission: unstable angina History of Present Illness: This a pleasant office patient of mine. He has a history of gout, htn, hyperlipidemia and sleep apnea. He called the office today at approx 2pm. He was having a deep seated pain in his left forearm. He also felt some darkening of the skin. The patient has been having some tingling in his fingertips. He has been having this for the last few days. Mostly these symptoms are at rest. Of note he cracked the fluid container of his cpap and has been sleeping without it for the past few days. Mostly has been sleeping in a chair as this is a good way to sleep without the cpap. We advised him to come to the ER. Was found to have a mild elevation of the troponin of 0.10. He also seems to have an elevation of the creatine. He did have a negative stress approx [address] Ferrara. Allergies NSAIDS Allergy (Unknown, Uncoded 04/07/20 15:07) KIDNEY DAMAGE Home Medications: Lisinopril [Zestril] 5 mg PO DAILY 04/07/20 - Past Medical/Surgical History Diabetic: No -: hypothyroidism -: htn -: hernia repair - Family History Father -: Cancer Notes: throat cancer - Social History Alcohol use: No CD- Drugs: No Caffeine use: Yes Review of Systems 10-point ROS is otherwise unremarkable Cardiovascular: Other (left forearm pain and tingling of the fingertips(bilaterally)) Physical Examination - Physical Exam General: Alert, In no apparent distress HEENT: Atraumatic, PERRLA, Mucous membr. moist/pink, EOMI, Sclerae nonicteric Neck: Supple, 2+ carotid pulse no bruit, No LAD, Without JVD or thyroid abnormality Respiratory: Clear to auscultation bilaterally, Normal air movement Cardiovascular: Regular rate/rhythm, Normal S1 S2 Gastrointestinal: Normal bowel sounds, No tenderness Musculoskeletal: No tenderness Integumentary: No rashes Neurological: Normal gait, Normal speech, Normal strength at 5/5 x4 extr, Normal tone, Normal affect Lymphatics: No axilla or inguinal lymphadenopathy - Studies Laboratory Data (last 24 hrs) 05/04/20 19:45: PT 12.1, INR 1.03 05/04/20 19:45: WBC 6.3, Hgb 12.9 L, Hct 38.9 L, Plt Count 156 05/04/20 19:45: Sodium 143, Potassium 3.8, BUN 21 H, Creatinine 1.67 H, Glucose 166 H, Magnesium 2.2 Assessment and Plan - Problems (Diagnosis) (1) Chest pain Onset Date: 08/13/17 Current Visit: No Status: Acute Plan: angina equivalent with elevated troponin. Will restart the patients bisoprolol, start lovenox a low dose aspirin and his statin. Will consult cardiology. Will monitor serial troponins. Qualifiers: Chest pain type: other chest pain Qualified Code(s): R07.89 - Other chest pain; R07.8 - Other chest pain (2) Hyperlipidemia Current Visit: Yes Status: Acute Plan: Will switch him to atorvastain from stimvastain. Will check a fasting lipid profile Qualifiers: Hyperlipidemia type: mixed hyperlipidemia Qualified Code(s): E78.2 - Mixed hyperlipidemia (3) Sleep apnea Current Visit: Yes Status: Acute Plan: will order a bipap at 5-10 mm of water. Qualifiers: Sleep apnea type: obstructive Qualified Code(s): G47.33 - Obstructive sleep apnea (adult) (pediatric) (4) Gout Onset Date: 08/13/17 Current Visit: No Status: Acute Plan: stable will check a uric acid on the patient. Qualifiers: Gout site: unspecified site Encounter type: sequela Chronicity: chronic (5) HTN (hypertension) Onset Date: 08/13/17 Current Visit: No Status: Acute Plan: on lisinopril, hctz and amlodipine. Will continue with the cpap and adjust accordingly. Qualifiers: Hypertension type: essential hypertension (6) CKD (chronic kidney disease) stage 3, GFR 30-59 ml/min Current Visit: Yes Status: Acute Plan: He is at his baseline creatine of 1.5 to 1. 7 We can give him some gentle hydration in case he needs contrast in the coming days. Discharge Plan: Home Plan to discharge in: 24 Hours - Advance Directives Does patient have a Living Will: No Does patient have a Durable POA for Healthcare: No - Code Status/Comfort Care Code Status Assessed: Yes Code Status: Full Code Physician Review: Patient Assessed, Agree with Above Assessment and Plan Critical Care: No Time Spent Managing Pts Care (In Minutes): 60
[2020-05-04] MEDS ORDERED: ASPIRIN 81 MG CHEWABLE TABLET ONE (20:57)
[2020-05-04 21:24] LABS: Urine Blood TRACE (NEG); Urine Glucose TRACE (NEG); Urine Protein 1+ (NEG); Urine Specific Gravity 1.025 (1.005-1.030)
[2020-05-05] MEDS: Enoxaparin 120 MG/0.8 ML SYR SQ SCH ×3 (00:13→20:01)
[2020-05-05] MEDS: ATORVASTATIN 40 MG TAB PO SCH ×2 (00:13→20:01)
[2020-05-05] MEDS: NA CHLORIDE 0.9% 1,000 ML IV SCH ×4 (00:13→23:34)
[2020-05-05 01:35] VITALS: BMI 35.9
[2020-05-05 06:02] LABS: Absolute Lymphocytes (CBC) 2.5 K/uL (0.7-4.9); Basophils % 0.6 % (0-1.3); Hematocrit 38.3 % (39.6-49.0); Lymphocytes % 40.2 % (15.3-44.8); MPV 10.6 fL (7.6-11.3); RBC Red Blood Cell Count 4.27 M/uL (4.33-5.43)
[2020-05-05 06:17] LABS: Albumin 3.3 g/dL (3.4-5.0); Bilirubin Total 0.6 mg/dL (0.2-1.0); Potassium 3.9 mmol/L (3.5-5.1); Protein, Total 6.5 g/dL (6.4-8.2); Uric Acid 8.9 mg/dL (3.5-7.2)
--- NOTE | 2020-05-05 07:58 | P.PN ---
Subjective Date of Service: 05/05/20 Primary Care Provider: Jarad Chief Complaint: unstable angina Subjective: No new changes (troponin still mildly elevated) Review of Systems 10-point ROS is otherwise unremarkable Physical Examination - Vital Signs Temperature: 97.8 F Blood Pressure: 150/88 Pulse: 67 Respirations: 18 Pulse Ox (%): 96 - Physical Exam General: Alert, In no apparent distress HEENT: Atraumatic, PERRLA, EOMI Neck: Supple, JVD not distended Respiratory: Clear to auscultation bilaterally, Normal air movement Cardiovascular: Regular rate/rhythm, Normal S1 S2 Gastrointestinal: Normal bowel sounds, No tenderness Musculoskeletal: No tenderness Integumentary: No rashes Neurological: Normal speech, Normal tone, Normal affect Lymphatics: No axilla or inguinal lymphadenopathy - Studies Laboratory Data (last 24 hrs) 05/04/20 19:45: PT 12.1, INR 1.03 05/04/20 19:45: WBC 6.3, Hgb 12.9 L, Hct 38.9 L, Plt Count 156 05/04/20 19:45: Sodium 143, Potassium 3.8, BUN 21 H, Creatinine 1.67 H, Glucose 166 H, Magnesium 2.2 Assessment & Plan - Problems (Diagnosis) (1) Chest pain Onset Date: 08/13/17 Current Visit: No Status: Acute Plan: angina equivalent with elevated troponin. Will restart the patients bisoprolol, start lovenox a low dose aspirin and his statin. Will consult cardiology. Will monitor serial troponins. 05/05/20 No reported chest pain this morning. He still has a mildly elevated troponin. Have spoken with Dr. Flor. Possible cath today. Qualifiers: Chest pain type: other chest pain Qualified Code(s): R07.89 - Other chest pain; R07.8 - Other chest pain (2) Hyperlipidemia Current Visit: Yes Status: Acute Plan: Will switch him to atorvastain from stimvastain. Will check a fasting lipid profile Qualifiers: Hyperlipidemia type: mixed hyperlipidemia Qualified Code(s): E78.2 - Mixed hyperlipidemia (3) Sleep apnea Current Visit: Yes Status: Acute Plan: will order a bipap at 5-10 mm of water. Qualifiers: Sleep apnea type: obstructive Qualified Code(s): G47.33 - Obstructive sleep apnea (adult) (pediatric) (4) Gout Onset Date: 08/13/17 Current Visit: No Status: Acute Plan: stable will check a uric acid on the patient. Qualifiers: Gout site: unspecified site Encounter type: sequela Chronicity: chronic (5) HTN (hypertension) Onset Date: 08/13/17 Current Visit: No Status: Acute Plan: on lisinopril, hctz and amlodipine. Will continue with the cpap and adjust accordingly. Qualifiers: Hypertension type: essential hypertension (6) CKD (chronic kidney disease) stage 3, GFR 30-59 ml/min Current Visit: Yes Status: Acute Plan: He is at his baseline creatine of 1.5 to 1. 7 We can give him some gentle hydration in case he needs contrast in the coming days. Discharge Plan: Home Plan to discharge in: 24 Hours - Code Status/Comfort Care Code Status Assessed: No Physician Review: Patient Assessed, Agree with Above Assessment and Plan Critical Care: No Time Spent Managing Pts Care (In Minutes): 25
[2020-05-05] MEDS ORDERED: HEPA 1000U/500MLS 1,000 UNIT/500 ML BAG IV ONE (08:56)
[2020-05-05] MEDS ORDERED: LIDOCAINE 1% 20 ML MDV ONE (08:56)
[2020-05-05] MEDS: lisinopriL 5 MG TAB PO SCH (08:59)
[2020-05-05] MEDS: ASPIRIN EC 81 MG TAB PO SCH (08:59)
[2020-05-05] MEDS ORDERED: MIDAZOLAM HCL 2 MG/2 ML INJ ONE ×2 (10:01→10:45)
[2020-05-05] MEDS ORDERED: ATROPINE SULF 1 MG/10 ML SYR IV ONE (10:02)
[2020-05-05] MEDS ORDERED: NA CHLORIDE 0.9% 50 ML ONE (10:02)
[2020-05-05] MEDS ORDERED: FENTANYL CITR 100 MCG/2 ML ONE ×2 (10:02→12:10)
[2020-05-05] MEDS ORDERED: LIDOCAINE 1% MPF 5 ML VIAL ONE (10:15)
[2020-05-05] MEDS ORDERED: ACETYLCYST 20% 4 ML VIAL IH ONE (10:29)
[2020-05-05] MEDS ORDERED: NITROGLYCERIN/D5W 25 MG/250 ML BTL IV ONE (10:54)
[2020-05-05] MEDS ORDERED: NITROGLYCERIN 100 MCG/ML SYR (for cath lab use only) IV ONE (10:54)
--- NOTE | 2020-05-05 11:21 | EKG ---
Test Date: 2020-05-04 Test Time: 17:41:01 Operator Receptionist: CHANTAL MEASUREMENT RESULTS: Intervals: Rate: 85 WA: 174 QRSD: 102 QT: 386 QTc: 459 Jackson: P: 38 WA: 174 QRS: 73 T: -62 INTERPRETIVE STATEMENTS: Sinus rhythm with occasional premature ventricular complexes Nonspecific T wave abnormality Abnormal ECG Compared to ECG 08/13/2017 07:46:28 Ventricular premature complex(es) now present T-wave abnormality now present Sinus tachycardia no longer present Electronically Signed On 05-05-20 11:20:17 CDT by Sathish Flor
[2020-05-05] MEDS ORDERED: PRASUGREL (EFFIENT) 10 MG TAB ONE (11:38)
[2020-05-05] MEDS: LIDOCAINE 4% PATCH TOP SCH (17:51)
[2020-05-05] MEDS: TRAMADOL HCL 50 MG TAB PO PRN ×2 (17:53→23:34)
[2020-05-05] MEDS: ACETAMINOPHEN 500 MG TAB PO SCH ×2 (18:00→23:34)
--- NOTE | 2020-05-06 03:00 | CON ---
Date of Consultation: 05/05/2020 Reason For Consultation: Acute coronary syndrome. History Of Present Illness: Mr. Lewis is a 69-year-old black male who came into the emergency room complaining of chest pain radiating to the left arm and anterior chest wall. His pain was exertional , lasted about an hour and a half. Had some diaphoresis, but no shortness of breath or nausea. Eddie ed any PND, orthopnea, pedal edema, palpitations, or syncope. Allergies: HIS ALLERGIES INCLUDE NONSTEROIDAL ANTI-INFLAMMATORY AGENT. Past Medical History: Only includes hypertension and gout. He has had a recent umbilical hernia rep air by Dr. Tolentino. Review of Systems: Negative. Social History: Negative. Family History: Positive for heart disease. Medications: At home include lisinopril 10 mg daily. Physical Examination: General: Mr. Lewis weighed 272 pounds. He was in no acute distress when I saw him. Vital Signs: Stable. He was afebrile. HEENT: Negative. Neck: Supple. No bruit. Chest: Clear to auscultation and percussion. Cardiac Exam: Revealed a regular rhythm and rate. No murmurs, gallops, or rubs. Abdomen: Obese, but benign. Extremities: Revealed no clubbing, cyanosis, or edema. Diagnostic Data: Revealed a glucose of 248. His creatinine is 1.5. His troponin was 0.11. Impression And Plan: This is a patient who has hypertension and obesity. He is probably prediabetic , has moderate renal insufficiency. Chest pain consistent with acute coronary syndrome. Troponin at 0.11, consistent with elevation myocardial infarction. The plan is to take him to the cardiac deep terization lab today for a rather urgent heart catheterization. Patient understands the risks and th e benefits of the procedure, and agreed to proceed. The case was discussed with Dr. Abraham. The nadya ent should be on aspirin, statin, lisinopril, and a low-dose beta supriya. I would prefer not to giv e him any Lovenox until we do the catheterization. Further plans will depend on the heart catheteriz ation findings. RONNY/MODL Voice ID: [id number] Report ID: [id number]
[2020-05-06] MEDS: TRAMADOL HCL 50 MG TAB PO PRN (05:39)
[2020-05-06] MEDS: ACETAMINOPHEN 500 MG TAB PO SCH (05:40)
[2020-05-06] MEDS: NA CHLORIDE 0.9% 1,000 ML IV SCH (05:40)
--- NOTE | 2020-05-06 06:08 | OP ---
Date of Procedure: 05/05/2020 Surgeon: Sathish Flor MD Workforce Specialist: Shanti Modi The patient remained in the hospital overnight. The case was discussed with Dr. Abraham. He should be able to go home on May 06, 2020. He should definitely go home on lisinopril, metoprolol, Lipi tor 80 mg daily and Plavix 75 mg daily as well as aspirin 81 mg daily, and we will see him in the off ice in the next 2 weeks. Procedure: Left heart catheterization, selective coronary arteriogram, and primary stent of the mid LAD. Indication: Mr. Lewis is 69 years old, came in today with non-ST elevation myocardial infarction. He continued to have some left arm pain and was brought down to the cardiac cath tech rather emergently. Description Of Procedure: He was prepped and draped in the routine sterile fashion, given Versed and fentanyl for sedation. Using the Seldinger technique, we introduced a 6-Bolivian sheath in the right common femoral artery. 10 cc of Xylocaine was used. Angiography there was normal. Angio-Seal was u sed to close the case. Sebastian catheters, left and right were used to do the angiography. He had a normal RCA. He had a normal circumflex. He had about 80% stenosis extending just past the first marcelle gonal. We decided to intervene. An XB LAD 3.5 catheter with side hole was used. A Wilson wire 0.01 4 was used to cross the lesion successfully. A 3.5 x 24 stent was introduced just past the first sep enedina. Stent was dilated and deployed with 0% residual. The patient tolerated the procedure well. Th ere were no complications. Blood Loss: 5 cc. Anesthesia: Total conscious sedation was 45 minutes. Final Diagnosis: Coronary artery disease, status post non-ST elevation myocardial infarction, status post LAD stent. The patient received aspirin, Effient 60 mg as well as Angiomax during the procedure. NB/MODL Voice ID: [id number] Report ID: [id number]
[2020-05-06 06:14] LABS: Absolute Lymphocytes (CBC) 2.2 K/uL (0.7-4.9); Basophils % 0.4 % (0-1.3); Hematocrit 38.5 % (39.6-49.0); Lymphocytes % 33.6 % (15.3-44.8); MPV 10.4 fL (7.6-11.3); RBC Red Blood Cell Count 4.24 M/uL (4.33-5.43)
[2020-05-06 06:31] LABS: Bilirubin Total 0.7 mg/dL (0.2-1.0); Potassium 3.8 mmol/L (3.5-5.1); Protein, Total 6.3 g/dL (6.4-8.2)
[2020-05-06] MEDS: lisinopriL 5 MG TAB PO SCH (08:05)
[2020-05-06] MEDS: ASPIRIN EC 81 MG TAB PO SCH (08:05)
[2020-05-06] MEDS: LIDOCAINE 4% PATCH TOP SCH (08:05)
[2020-05-06] MEDS: Enoxaparin 120 MG/0.8 ML SYR SQ SCH (08:05)
[2020-05-06 08:06] VITALS: BP 161/89
[2020-05-06 09:02] VITALS: TEMP 97.4
--- NOTE | 2020-05-06 09:05 | P.DS ---
Admission Date: 05/05/20 Discharge Date: 05/06/20 Primary Care Provider: Jarad Disposition: ROUTINE DISCHARGE Discharge Condition: GOOD Reason for Admission: unstable angina - Problems (1) Chest pain Onset Date: 08/13/17 Current Visit: No Status: Acute Qualifiers: Chest pain type: other chest pain Qualified Code(s): R07.89 - Other chest pain; R07.8 - Other chest pain (2) Hyperlipidemia Current Visit: Yes Status: Acute Qualifiers: Hyperlipidemia type: mixed hyperlipidemia Qualified Code(s): E78.2 - Mixed hyperlipidemia (3) Sleep apnea Current Visit: Yes Status: Acute Qualifiers: Sleep apnea type: obstructive Qualified Code(s): G47.33 - Obstructive sleep apnea (adult) (pediatric) (4) Gout Onset Date: 08/13/17 Current Visit: No Status: Acute Qualifiers: Gout site: unspecified site Encounter type: sequela Chronicity: chronic (5) HTN (hypertension) Onset Date: 08/13/17 Current Visit: No Status: Acute Qualifiers: Hypertension type: essential hypertension (6) CKD (chronic kidney disease) stage 3, GFR 30-59 ml/min Current Visit: Yes Status: Acute Brief History of Present Illness: This a pleasant office patient of [facility]. He has a history of gout, htn, hyperlipidemia and sleep apnea. He called the office today at approx 2pm. He was having a deep seated pain in his left forearm. He also felt some darkening of the skin. The patient has been having some tingling in his fingertips. He has been having this for the last few days. Mostly these symptoms are at rest. Of note he cracked the fluid container of his cpap and has been sleeping without it for the past few days. Mostly has been sleeping in a chair as this is a good way to sleep without the cpap. We advised him to come to the ER. Was found to have a mild elevation of the troponin of 0.10. He also seems to have an elevation of the creatine. He did have a negative stress approx [address] Ferrara. Hospital Course: Patient called the office with left arm pain. He was admitted. Had a drug iluting stent placed in the LAD by Dr. Flor. Will discharge him home on asa and plavix. Follow up with me and Dr. Flor next week. Vital Signs/Physical Exam: Temp Pulse Resp BP Pulse Ox 97.4 F 93 H 18 161/89 H 95 05/06/20 08:00 05/06/20 08:05 05/06/20 08:00 05/06/20 08:05 05/06/20 08:00 General: Alert, In no apparent distress HEENT: Atraumatic, PERRLA, EOMI Neck: Supple, JVD not distended Respiratory: Clear to auscultation bilaterally, Normal air movement Cardiovascular: Regular rate/rhythm, Normal S1 S2 Gastrointestinal: Normal bowel sounds, No tenderness Musculoskeletal: No tenderness Integumentary: No rashes Neurological: Normal speech, Normal tone, Normal affect Lymphatics: No axilla or inguinal lymphadenopathy Laboratory Data at Discharge: WBC 6.6 K/uL (4.3-10.9) 05/06/20 05:45 Hgb 12.8 g/dL (13.6-17.9) L 05/06/20 05:45 Hct 38.5 % (39.6-49.0) L 05/06/20 05:45 Plt Count 136 K/uL (152-406) L 05/06/20 05:45 PT 12.1 SECONDS (9.5-12.5) 05/04/20 19:45 INR 1.03 05/04/20 19:45 Sodium 144 mmol/L (136-145) 05/06/20 05:45 Potassium 3.8 mmol/L (3.5-5.1) 05/06/20 05:45 BUN 18 mg/dL (7-18) 05/06/20 05:45 Creatinine 1.42 mg/dL (0.55-1.3) H 05/06/20 05:45 Glucose 96 mg/dL (74-106) 05/06/20 05:45 Uric Acid 8.9 mg/dL (3.5-7.2) H 05/05/20 05:44 Magnesium 2.2 mg/dL (1.8-2.4) 05/04/20 19:45 Total Bilirubin 0.7 mg/dL (0.2-1.0) 05/06/20 05:45 AST 18 U/L (15-37) 05/06/20 05:45 ALT 20 U/L (12-78) 05/06/20 05:45 Alkaline Phosphatase 62 U/L (45-117) 05/06/20 05:45 Troponin I 0.11 ng/mL (0.0-0.045) H 05/05/20 01:37 Triglycerides 157 mg/dL (<150) H 05/05/20 05:44 Cholesterol 180 mg/dL (<200) 05/05/20 05:44 HDL Cholesterol 53 mg/dL (40-60) 05/05/20 05:44 Cholesterol/HDL Ratio 3.40 05/05/20 05:44 Home Medications: Lisinopril [Zestril] 10 mg PO DAILY 04/07/20 Clopidogrel Bisulfate [Plavix] 75 mg PO DAILY 90 Days #90 tablet 05/06/20 RX: Aspirin 81 mg PO DAILY 90 Days #90 tab.chew 05/06/20 New Medications: RX: Aspirin 81 mg PO DAILY 90 Days #90 tab.chew Clopidogrel Bisulfate [Plavix] 75 mg PO DAILY 90 Days #90 tablet Diet: low carb Activity: Ad floyd Followup: Orlando Abraham MD [Primary Care Provider] - 1-2 Weeks Sathish Flor MD [ACTIVE - CAN ADMIT] - 1 Week
[2020-05-06 09:49] VITALS: O2SAT 97
--- NOTE | 2020-05-06 18:36 | PN ---
Date of Progress Note: 05/06/2020 Subjective: Mr. Lewis is doing well today on 05/06/2020. He had come in with a non-ST elevation my ocardial infarction. Heart catheterization, which was done yesterday revealed a severe stenosis in t he proximal to mid LAD with a long stenosis. A 24 mm long 3.5 Synergy stent was deployed with 0% res idual. Overnight, the patient has done well. He denied any chest pain or arm pain. His vital signs are stable. He is afebrile. His chest is clear. Cardiac exam is normal. Right groin site of the catheterization was intact without any hematoma. He has good distal pulses in the right dorsalis ped is and posterior tibial. We will send him home today with a final diagnosis of CAD status post succe ssful primary stent of the LAD. He will go home on aspirin, metoprolol, Lipitor, and Plavix and he w ill stop his lisinopril. He was having cough when he took the lisinopril. I will see him in the off ice in the next 2 weeks. RONNY/ROSE MARY Voice ID: [id number] Report ID: [id number]
== END 2020-05-06 11:46 | disposition home or self-care (01) | DRG 247 ==
LOC: ER 17:22 → ERHOLD 21:04 → 4TH 22:40 → OBSVTOIN 05-05 20:03
PROVIDERS: ADMIT Internal Medicine; ATTEND Internal Medicine
PROC: 027034Z Dilation of Coronary Artery, One Artery with Drug-eluting Intraluminal Device, Percutaneous Approach (ICD-10-PCS; principal; 2020-05-05)
PROC: 4A023N7 Measurement of Cardiac Sampling and Pressure, Left Heart, Percutaneous Approach (ICD-10-PCS; 2020-05-05)
PROC: B2111ZZ Fluoroscopy of Multiple Coronary Arteries using Low Osmolar Contrast (ICD-10-PCS; 2020-05-05)
DX: I21.4 Non-ST elevation (NSTEMI) myocardial infarction (principal); E78.2 Mixed hyperlipidemia; G47.33 Obstructive sleep apnea (adult) (pediatric); M10.9 Gout, unspecified; I12.9 Hypertensive chronic kidney disease with stage 1 through stage 4 chronic kidney disease, or unspecified chronic kidney disease; N18.3 Chronic kidney disease, stage 3 (moderate); I25.119 Atherosclerotic heart disease of native coronary artery with unspecified angina pectoris; R79.89 Other specified abnormal findings of blood chemistry; E66.9 Obesity, unspecified; Z68.35 Body mass index [BMI] 35.0-35.9, adult; Z79.899 Other long term (current) drug therapy; Z88.8 Allergy status to other drugs, medicaments and biological substances
CPT/HCPCS: 36415; 70450; 71045; 80048; 80053; 80061; 81003; 83735; 84484; 84550; 85025; 85347; 85610; 93005; 93454; 94660; 99285; C1725; C1760; C1877; C1893; C9600; G0378; J0583; J1644; J1650; J2250; J3010; J7030

== ENCOUNTER 2020-06-10 14:49 | Observation (INO) | payer OTHER ==
--- NOTE | 2020-06-10 15:29 | RAD REPORT ---
EXAM DESCRIPTION: RAD - Chest Single View - 06/10/2020 3:17 pm CLINICAL HISTORY: DYSPNEA COMPARISON: Portable May 04, 2020 TECHNIQUE: AP portable chest image was obtained 06/10/2020 3:17 pm . FINDINGS: No focal mass or consolidations seen. Lung volumes reduced from the comparison. This accen tuates the interstitial pattern. True change is unlikely. Left hemidiaphragm elevation again noted. M ediastinum is accentuated by rotation. Heart and vasculature are normal. No measurable pleural effusi on and no pneumothorax. No acute bony abnormality seen. No acute aortic findings suspected. IMPRESSION: Shallow inspiration exam without acute cardiopulmonary finding. Reduced lung volume could mask interstitial edema or infiltrate.
[2020-06-10 15:31] LABS: Absolute Lymphocytes (CBC) 1.9 K/uL (0.7-4.9); Basophils % 0.7 % (0-1.3); Hematocrit 36.2 % (39.6-49.0); MPV 10.5 fL (7.6-11.3); RBC Red Blood Cell Count 4.04 M/uL (4.33-5.43)
[2020-06-10 15:32] LABS: Protime INR 1.03
[2020-06-10 15:49] LABS: Troponin (Emerg Dept Use Only) 0.09 ng/mL (0.0-0.045)
--- NOTE | 2020-06-10 16:12 | EDPHYS ---
Physician Documentation [facility] Name: Tang Lewis Age: 69 yrs Sex: Male : 1950 Arrival Date: 06/10/2020 Time: 14:51 Bed 5 Private MD: Orlando Abraham ED Physician Morgan Hu HPI: 06/10 15:15 This 69 yrs old Black Male presents to ER via Ambulatory with complaints of Dizziness, rn Shortness Of Breath. 15:15 The patient presents with dizziness, feeling faint, lightheadedness. Onset: The rn symptoms/episode began/occurred at an unknown time. Modifying factors: The symptoms are alleviated by nothing, the symptoms are aggravated by standing up, changing position. Severity of symptoms: At their worst the symptoms were mild in the emergency department the symptoms are unchanged. The patient has not experienced similar symptoms in the past. Reports dizziness, sob, intermittent, able to rest and improves. No fever/cough. Reports stent placed 5 weeks ago. No bloody or dark stool. Taking his plavix and aspirin. . Historical: - Allergies: 15:13 NSAIDS; iw - Home Meds: 15:13 indomethacin 50 mg Oral cap 1 cap 3 times per day [Active]; atorvastatin 80 mg oral tab iw 1 tab once daily [Active]; clopidogrel 75 mg oral tab 1 tab once daily [Active]; bystolic-hctz 2.5/6.25 daily [Active]; - PMHx: 15:13 Gout; Hypertension; iw - PSHx: 15:13 cervical spine sx; umbilical hernia repair (Dr. Tolentino); iw - Family history:: not pertinent. - Hospitalizations: : No recent hospitalization is reported. ROS: 15:15 Constitutional: Negative for fever, chills, and weight loss, Eyes: Negative for injury, rn pain, redness, and discharge, Cardiovascular: Negative for chest pain, palpitations Respiratory: Negative for cough, wheezing, and pleuritic chest pain, Abdomen/GI: Negative for abdominal pain, nausea, vomiting, diarrhea, and constipation, MS/Extremity: Negative for injury and deformity, Skin: Negative for injury, rash, and discoloration, Neuro: Negative for headache, weakness, numbness, tingling, and seizure. Exam: 15:15 Constitutional: This is a well developed, well nourished patient who is awake, alert, rn and in no acute distress. Head/Face: Normocephalic, atraumatic. Eyes: Pupils equal round and reactive to light, normal conjunctivae Neck: No JVD Cardiovascular: Regular rate and rhythm. No pulse deficits. Respiratory: No increased work of breathing, no retractions or nasal flaring. Abdomen/GI: soft, non-tender Skin: Warm, dry MS/ Extremity: Pulses equal, no cyanosis. 1+ edema bilateral lower ext Neuro: Awake and alert, GCS 15, oriented to person, place, time, and situation. Cranial nerves II-XII grossly intact. Motor strength 5/5 in all extremities. Sensory grossly intact. Cerebellar exam normal. Normal gait. Vital Signs: 15:09 BP 152 / 93; Pulse 80; Resp 18 S; Temp 98.0; Pulse Ox 100% on R/A; Weight 123.83 kg; iw Height 6 ft. 2 in. (187.96 cm); Pain 0/10; 16:00 BP 145 / 93; Pulse 78; Resp 16 S; Pulse Ox 100% on R/A; aa5 17:05 BP 139 / 99; Pulse 67; Resp 16 S; Pulse Ox 100% on R/A; aa5 15:09 Body Mass Index 35.05 (123.83 kg, 187.96 cm) iw MDM: 14:54 Patient medically screened. rn 16:08 Differential diagnosis: generalized weakness. rn 16:10 Data reviewed: vital signs, nurses notes, lab test result(s), EKG, radiologic studies, rn plain films, and as a result, I will admit patient. Counseling: I had a detailed discussion with the patient and/or guardian regarding: the historical points, exam findings, and any diagnostic results supporting the discharge/admit diagnosis, lab results, radiology results, the need for further work-up and treatment in the hospital. Admission orders: after a detailed discussion of the patient's condition and case, the admit orders are written by me. ED course: Consulted with Dr. Abraham, out of town, requests admission to hospitalist, admitted to Dr. Hu.. 06/10 15:05 Order name: Basic Metabolic Panel; Complete Time: 15:54 rn 06/10 15:05 Order name: CBC with Diff; Complete Time: 15:54 rn 06/10 15:05 Order name: NT PRO-BNP; Complete Time: 15:54 rn 06/10 15:05 Order name: PT-INR; Complete Time: 15:54 rn 06/10 15:05 Order name: Troponin (emerg Dept Use Only); Complete Time: 15:54 rn 06/10 15:05 Order name: XRAY Chest (1 view); Complete Time: 15:33 rn 06/10 15:05 Order name: EKG; Complete Time: 15:06 rn 06/10 15:05 Order name: Cardiac monitoring; Complete Time: 15:11 rn 06/10 15:05 Order name: EKG - Nurse/Tech; Complete Time: 15:11 rn 06/10 15:05 Order name: IV Saline Lock; Complete Time: 15:24 rn 06/10 15:05 Order name: Labs collected and sent; Complete Time: 15:24 rn 06/10 15:05 Order name: O2 Per Protocol; Complete Time: 15:11 rn 06/10 16:31 Order name: Diet Heart Healthy; Complete Time: 16:32 [facility] 06/10 16:44 Order name: CONS Physician Consult [facility] 06/10 15:05 Order name: O2 Sat Monitoring; Complete Time: 15:11 rn Administered Medications: No medications were administered Disposition: 06/10/20 16:12 Hospitalization ordered by Guanakito Hu for Observation. Preliminary diagnosis is Dyspnea, unspecified. - Bed requested for Telemetry/MedSurg (observation). - Status is Observation. aa5 - Condition is Stable. - Problem is new. - Symptoms are unchanged. Signatures: Dispatcher [employer] EDOR Beulah Hebert RN YURI Morgan Hu MD MD rn Calderon, Audri, RN RN aa5 Roxana Vega Corrections: (The following items were deleted from the chart) 17:11 16:12 Hospitalization Ordered by Guanakito Hu MD for Observation. Preliminary eb diagnosis is Dyspnea, unspecified. Bed requested for Telemetry/MedSurg (observation). Status is Observation. Condition is Stable. Problem is new. Symptoms are unchanged. rn 18:09 17:11 06/10/2020 16:12 Hospitalization Ordered by Guanakito Hu MD for Observation. aa5 Preliminary diagnosis is Dyspnea, unspecified. Bed requested for Telemetry/MedSurg (observation). Status is Observation. Condition is Stable. Problem is new. Symptoms are unchanged. eb
--- NOTE | 2020-06-10 16:12 | ER ---
Nurse's Notes [facility] Name: Tang Lewis Age: 69 yrs Sex: Male : 1950 Arrival Date: 06/10/2020 Time: 14:51 Bed 5 Private MD: Orlando Abraham Diagnosis: Dyspnea, unspecified Presentation: 06/10 15:09 Chief complaint: Patient states: has been tired, SOB, dizzy on exertion since Friday, iw had stent placed 05-04-[address] Flor. Coronavirus screen: At this time, the client does not indicate any symptoms associated with coronavirus-19. Ebola Screen: Patient negative for fever greater than or equal to 101.5 degrees Fahrenheit, and additional compatible Ebola Virus Disease symptoms Patient denies exposure to infectious person. Patient denies travel to an Ebola-affected area in the 21 days before illness onset. No symptoms or risks identified at this time. Initial Sepsis Screen: Does the patient meet any 2 criteria? No. Patient's initial sepsis screen is negative. Does the patient have a suspected source of infection? No. Patient's initial sepsis screen is negative. Risk Assessment: Do you want to hurt yourself or someone else? Patient reports no desire to harm self or others. Onset of symptoms was June 05, 2020. 15:09 Method Of Arrival: Ambulatory iw 15:09 Acuity: [place] 2 iw Historical: - Allergies: 15:13 NSAIDS; iw - Home Meds: 15:13 indomethacin 50 mg Oral cap 1 cap 3 times per day [Active]; atorvastatin 80 mg oral tab iw 1 tab once daily [Active]; clopidogrel 75 mg oral tab 1 tab once daily [Active]; bystolic-hctz 2.5/6.25 daily [Active]; - PMHx: 15:13 Gout; Hypertension; iw - PSHx: 15:13 cervical spine sx; umbilical hernia repair (Dr. Tolentino); iw - Family history:: not pertinent. - Hospitalizations: : No recent hospitalization is reported. Screenin:11 Abuse screen: Denies threats or abuse. Nutritional screening: No deficits noted. aa5 Tuberculosis screening: No symptoms or risk factors identified. Fall Risk None identified. Assessment: 15:11 General: Appears comfortable, Behavior is calm, cooperative. Pain: Denies pain. Neuro: aa5 Level of Consciousness is awake, alert, obeys commands, Oriented to person, place, time, situation, Reports dizziness. Cardiovascular: Heart tones S1 S2 Edema 2+ pitting edema noted to hector lower extremities Rhythm is sinus rhythm. Respiratory: Reports shortness of breath on exertion Airway is patent Respiratory effort is even, unlabored, Respiratory pattern is regular, symmetrical, Breath sounds are clear bilaterally. GI: Abdomen is round. : No signs and/or symptoms were reported regarding the genitourinary system. EENT: No signs and/or symptoms were reported regarding the EENT system. Derm: Skin is dry, Skin is normal, Skin temperature is warm. Musculoskeletal: Range of motion: intact in all extremities. 16:00 Reassessment: MD at bedside . aa5 16:00 Neuro: Level of Consciousness is awake, alert, obeys commands, Oriented to person, aa5 place, time, situation. Respiratory: Airway is patent Respiratory effort is even, unlabored, Respiratory pattern is regular, symmetrical. Derm: Skin is dry, Skin is normal, Skin temperature is warm. 16:00 Reassessment: Pt sitting up in bed. Bed remains in low position, side rails x 2, call aa5 gordon within reach. NSR on monitor. . 17:15 Reassessment: Pt denies any complaints at this time. Pt sitting up in bed watching a aa5 movie. Pt notified of wait time for room assignment and given food tray. Pt now sitting up in bed eating and tolerating well. . Neuro: Level of Consciousness is awake, alert, obeys commands, Oriented to person, place, time, situation. Respiratory: Airway is patent Respiratory effort is even, unlabored, Respiratory pattern is regular, symmetrical. Derm: Skin is dry, Skin is normal, Skin temperature is warm. Vital Signs: 15:09 BP 152 / 93; Pulse 80; Resp 18 S; Temp 98.0; Pulse Ox 100% on R/A; Weight 123.83 kg; iw Height 6 ft. 2 in. (187.96 cm); Pain 0/10; 16:00 BP 145 / 93; Pulse 78; Resp 16 S; Pulse Ox 100% on R/A; aa5 17:05 BP 139 / 99; Pulse 67; Resp 16 S; Pulse Ox 100% on R/A; aa5 15:09 Body Mass Index 35.05 (123.83 kg, 187.96 cm) ED Course: 14:51 Patient arrived in ED. ag5 14:51 Orlando Abraham MD is Private Physician. ag5 14:54 Morgan Hu MD is Attending Physician. rn 15:03 Christiana Mcknight, YURI is Primary Nurse. aa5 15:11 Triage completed. iw 15:11 Patient has correct armband on for positive identification. Bed in low position. Call aa5 light in reach. Side rails up X2. monitor car operator on. Pulse ox on. NIBP on. 15:11 Arm band placed on. aa5 15:14 XRAY Chest (1 view) In Process Unspecified. EDMS 15:23 Inserted saline lock: 20 gauge in right forearm, using aseptic technique. Blood dh4 collected. 16:11 Guanakito Hu MD is Hospitalizing Provider. rn 18:05 No provider procedures requiring assistance completed. Patient admitted, IV remains in aa5 place. Administered Medications: No medications were administered Outcome: 16:12 Decision to Hospitalize by Provider. rn 18:05 Admitted to Tele accompanied by tech, via wheelchair, with chart, Report called to aa5 YURI Small 18:05 Condition: stable 18:05 Instructed on the need for admit, Demonstrated understanding of instructions. 18:09 Patient left the ED. aa5 Signatures: Dispatcher [employer] Beulah Harris, YURI WELCH Morgan Hu MD MD rn Calderon, Audri, RN RN [facility] Tere Estrada [facility] Lew Jules 4
[2020-06-10 18:19] VITALS: BMI 35.4
--- NOTE | 2020-06-10 18:24 | P.HP ---
Certification for Inpatient Patient admitted to: Observation With expected LOS: <2 Midnights Practitioner: I am a practitioner with admitting privileges, knowledge of patient current condition, hospital course, and medical plan of care. Services: Services provided to patient in accordance with Admission requirements found in Title 42 Section 412.3 of the Code of Federal Regulations Patient History Date of Service: 06/10/20 Reason for admission: CHF exacerbation History of Present Illness: 69yo M, PMH: GERMAN, gout, HTN, CKD, HL the presented to the ED due to high acutely worsening dyspnea on exertion, associated with orthopnea. Patient states he has been having slowly progressively worsen shortness of breath over the past 2-3 weeks. He was recently hospitalized about 5 weeks ago for chest pain and underwent coronary artery stenting. The past 2 days he has become significantly dyspneic even just walking a few feet. He denies any chest pain, any abdominal pain, no fevers/chills, no change in urinary/bowel habits, no rash/fevers he reports he has been taking his medications as prescribed. He has also had some associated mild swelling in both legs. In the ED he was noted to have a troponin 0.09, BNP of 2045, creatinine 1.64. EKG without any new ischemic changes. Allergies NSAIDS Allergy (Unknown, Uncoded 05/04/20 23:48) KIDNEY DAMAGE Home Medications: Aspirin 81 mg PO DAILY 90 Days #90 tab.chew 05/06/20 Atorvastatin Calcium [Lipitor] 80 mg PO BEDTIME #30 tablet 05/06/20 Clopidogrel Bisulfate [Plavix] 75 mg PO DAILY 90 Days #90 tablet 05/06/20 Bisoprolol/Hydrochlorothiazide [Bisoprolol-Hctz 2.5-6.25 mg Tb] 1 tab PO DAILY 06/10/20 Indomethacin 1 cap PO TID 06/10/20 - Past Medical/Surgical History Diabetic: No -: hyperlipidemia -: htn -: gout -: hernia repair -: sleep apnea -: cervical spine surgery - Family History Father -: Cancer Notes: throat cancer - Social History Smoking Status: Never smoker Alcohol use: No CD- Drugs: No Caffeine use: Yes Physical Examination - Vital Signs Temperature: 98.0 F Blood Pressure: 139/99 Pulse: 67 Respirations: 16 - Physical Exam General: Alert, In no apparent distress, Oriented x3 HEENT: Mucous membr. moist/pink Respiratory: Diminished (At bases bilaterally) Cardiovascular: Regular rate/rhythm, Normal S1 S2, Edema (1+ pitting to knees bilaterally) Gastrointestinal: Soft and benign, Non-distended, No tenderness Musculoskeletal: No tenderness Integumentary: No rashes Neurological: Normal speech, Normal affect - Studies Laboratory Data (last 24 hrs) 06/10/20 15:21: PT 12.2, INR 1.03 06/10/20 15:21: WBC 6.2, Hgb 12.2 L, Hct 36.2 L, Plt Count 163 06/10/20 15:21: Sodium 144, Potassium 4.0, BUN 26 H, Creatinine 1.64 H, Glucose 124 H Assessment and Plan - Advance Directives Does patient have a Living Will: Yes Does patient have a Durable POA for Healthcare: Yes Physician Review Additional Text: Acute CHF exacerbation. CAD s/p stent -he reported no history of CHF -Last echocardiogram (2016): LVEF: 36%, decreased LV compliance -does not take Lasix at home, will diurese with 20 mg IV b.i.d. for now, monitor his I&Os -initial troponin 0.09, will continue to trend, continue home aspirin and Plavix -cardiology consulted, case reviewed CKD -appears to be at baseline, may be mildly elevated. Will continue to monitor GERMAN HTN Gout -appears stable, obtain home meds and continue as appropriate Dispo: anticipate dc home in 24-48 hrs Time Spent Managing Pts Care (In Minutes): 55
[2020-06-10] MEDS: FUROSEMIDE 20 MG/ 2ML VIAL IV SCH (18:37)
[2020-06-10] MEDS: ATORVASTATIN 80 MG TAB PO SCH (21:11)
[2020-06-10] MEDS: METOPROLOL XL 25 MG TAB PO SCH (21:11)
[2020-06-10 21:56] LABS: Troponin I 0.08 ng/mL (0.0-0.045)
[2020-06-11 04:16] LABS: Absolute Lymphocytes (CBC) 2.2 K/uL (0.7-4.9); Basophils % 0.8 % (0-1.3); Hematocrit 36.9 % (39.6-49.0); Lymphocytes % 36.6 % (15.3-44.8); MPV 10.6 fL (7.6-11.3); RBC Red Blood Cell Count 4.08 M/uL (4.33-5.43)
[2020-06-11 04:47] LABS: Bilirubin Total 0.5 mg/dL (0.2-1.0); Magnesium 2.3 mg/dL (1.8-2.4); Potassium 3.9 mmol/L (3.5-5.1); Protein, Total 6.3 g/dL (6.4-8.2)
[2020-06-11] MEDS ORDERED: POTASSIUM CL SA 10 MEQ TAB PO ONE (07:31)
[2020-06-11] MEDS: METOPROLOL XL 25 MG TAB PO SCH (07:55)
[2020-06-11] MEDS: CLOPIDOGREL 75 MG TABLET PO SCH (07:55)
[2020-06-11] MEDS: FUROSEMIDE 20 MG/ 2ML VIAL IV SCH ×2 (07:56→17:30)
[2020-06-11] MEDS: ASPIRIN 81 MG CHEWABLE TABLET PO SCH (07:56)
--- NOTE | 2020-06-11 09:34 | P.PN ---
Subjective Date of Service: 06/11/20 Chief Complaint: CHF exacerbation Subjective: Improving (He reports slight improvement with breathing, however has not walked much/down on the bed urinated with Lasix yesterday Reports some intermittent chest pressure that began 2 days) Review of Systems 10-point ROS is otherwise unremarkable Physical Examination - Vital Signs Temperature: 97.9 F Blood Pressure: 154/85 Pulse: 68 Respirations: 16 Pulse Ox (%): 96 - Physical Exam General: Alert, In no apparent distress, Oriented x3 HEENT: Mucous membr. moist/pink, Sclerae nonicteric Respiratory: Diminished (At bases bilaterally) Cardiovascular: Regular rate/rhythm, Normal S1 S2, Edema (1-2+ bilaterally to knees) Gastrointestinal: Soft and benign, Non-distended, No tenderness Musculoskeletal: No tenderness Integumentary: No rashes Neurological: Normal speech, Normal affect - Studies Laboratory Data (last 24 hrs) 06/10/20 15:21: PT 12.2, INR 1.03 06/10/20 15:21: WBC 6.2, Hgb 12.2 L, Hct 36.2 L, Plt Count 163 06/10/20 15:21: Sodium 144, Potassium 4.0, BUN 26 H, Creatinine 1.64 H, Glucose 124 H Assessment & Plan Physician Review Additional Text: Acute CHF exacerbation. Chest pain, elevated Troponin CAD s/p stent -he reported no history of CHF -Last echocardiogram (2016): LVEF: 36%, decreased LV compliance -does not take Lasix at home, will diurese with 20 mg IV b.i.d. for now -may need to increase to 40 mg IV b.i.d. -initial troponin 0.09 -> 0.08 -> 0.10, continue to trend -continue home aspirin and Plavix -cardiology consulted, case reviewed CKD -stable, appears to be at baseline, may be mildly elevated. Will continue to monitor GERMAN HTN Gout -appears stable, continue home medications -continue CPAP Dispo: anticipate dc home in 24-48 hrs Time Spent Managing Pts Care (In Minutes): 35
[2020-06-11] MEDS: INDOMETHACIN PO SCH ×2 (13:41→19:34)
--- NOTE | 2020-06-11 14:00 | CON ---
Date of Consultation: 06/11/2020 Reason For Consultation: CHF exacerbation and elevated troponin. History Of Present Illness: This is a 69-year-old male with history of chronic kidney disease, hyper tension, gout, obstructive sleep apnea, comes in with shortness of breath, worsening on exertion and orthopnea that has been going on for the past few weeks. The patient was admitted about a month ago and had an LAD stent by Dr. Flor for 80% stenosis. Denies any chest pain. No nausea, vomiting, o r diarrhea. No other complaints. Past Medical History: As outlined on above in the HPI. Medications: Refer to reconciliation sheet for detailed list. Allergies: NSAIDS. Social History: Does not smoke or drink. Does not use any drugs. Review of Systems: All systems reviewed and they were negative except what mentioned in the HPI. Physical Examination: Vital Signs: Temperature is 97.9, pulse 68, breathing at 16, blood pressure 154/85, saturating 96% o n room air. General: Pleasant, middle-aged male, no distress. Head and Neck: Pupils are equal, react to light. Intact eye movements. No JVD. No cervical lympha denopathy. Neck: Supple. Thyroid is not enlarged. Lungs: Crackles in the bases. No accessory muscle use or muscle retraction. Heart: Regular rate and rhythm. No extra sounds. Abdomen: Soft, nontender. Bowel sounds positive. No organomegaly. No masses or hernia. No rigidi ty or rebound. Extremities: Mild edema. No clubbing or cyanosis. Intact pulses. Skin: No rash noted. Neurologic: Alert, awake, oriented x3. No acute focal deficits appreciated. Investigations: Sodium 144, creatinine 0.62, and BUN is 30. Troponin peaked at 0.1 and now 0.08. N T-proBNP is 4. Assessment And Plan: 1.Acute on chronic congestive heart failure exacerbation. Recommend to obtain echocardiogram if not done recently and agree with diuresis. Monitor BUN, creatinine, and electrolytes. 2.Elevated troponin could be due to heart failure due to elevated creatinine. Now recommend to do a n exercise nuclear stress test and further evaluate if it is abnormal. Thank you for the consultation. /ROSE MARY Voice ID: [id number] Report ID: [id number]
[2020-06-11] MEDS: ATORVASTATIN 80 MG TAB PO SCH (20:36)
[2020-06-12 04:27] LABS: Absolute Lymphocytes (CBC) 1.6 K/uL (0.7-4.9); Basophils % 0.6 % (0-1.3); Hematocrit 37.3 % (39.6-49.0); Lymphocytes % 25.3 % (15.3-44.8); MPV 10.2 fL (7.6-11.3); RBC Red Blood Cell Count 4.18 M/uL (4.33-5.43)
[2020-06-12 04:33] LABS: Magnesium 2.3 mg/dL (1.8-2.4); Potassium 3.9 mmol/L (3.5-5.1)
--- NOTE | 2020-06-12 07:29 | P.PN ---
Subjective Date of Service: 06/12/20 Primary Care Provider: Jarad Chief Complaint: CHF exacerbation Subjective: No new changes Review of Systems 10-point ROS is otherwise unremarkable Physical Examination - Vital Signs Temperature: 98.1 F Blood Pressure: 157/89 Pulse: 73 Respirations: 20 Pulse Ox (%): 93 - Physical Exam General: Alert, In no apparent distress HEENT: Atraumatic, PERRLA, EOMI Neck: Supple, JVD not distended Respiratory: Clear to auscultation bilaterally, Normal air movement Cardiovascular: Regular rate/rhythm, Normal S1 S2, Edema (1+) Gastrointestinal: Normal bowel sounds, No tenderness Musculoskeletal: No tenderness Integumentary: No rashes Neurological: Normal speech, Normal tone, Normal affect Lymphatics: No axilla or inguinal lymphadenopathy Assessment & Plan - Problems (Diagnosis) (1) CHF exacerbation Current Visit: Yes Status: Acute Plan: He has diuresis pretty well. The patient is scheduled for an echo and a stress test. Qualifiers: Heart failure type: unspecified Qualified Code(s): I50.9 - Heart failure, unspecified (2) CKD (chronic kidney disease) stage 3, GFR 30-59 ml/min Current Visit: No Status: Acute Plan: He is at his baseline. Will stop the indomenthacin. For a gout attack he should come to the office for a injection (3) Gout Onset Date: 08/13/17 Current Visit: No Status: Acute Plan: chronic. He is not having an attack. Will have to avoid nsaids Qualifiers: Gout site: foot Encounter type: sequela Chronicity: chronic (4) HTN (hypertension) Onset Date: 08/13/17 Current Visit: No Status: Acute Plan: well controlled. Qualifiers: Hypertension type: essential hypertension (5) Hyperlipidemia Current Visit: No Status: Acute Plan: continue home medications. Qualifiers: Hyperlipidemia type: moderate mixed hyperlipidemia not requiring statin therapy Qualified Code(s): E78.2 - Mixed hyperlipidemia (6) Sleep apnea Current Visit: No Status: Acute Qualifiers: Sleep apnea type: obstructive Qualified Code(s): G47.33 - Obstructive sleep apnea (adult) (pediatric) Discharge Plan: Home Plan to discharge in: 24 Hours - Code Status/Comfort Care Code Status Assessed: No Code Status: Full Code Physician Review Additional Text: Acute CHF exacerbation. Chest pain, elevated Troponin CAD s/p stent -he reported no history of CHF -Last echocardiogram (2016): LVEF: 36%, decreased LV compliance -does not take Lasix at home, will diurese with 20 mg IV b.i.d. for now -may need to increase to 40 mg IV b.i.d. -initial troponin 0.09 -> 0.08 -> 0.10, continue to trend -continue home aspirin and Plavix -cardiology consulted, case reviewed CKD -stable, appears to be at baseline, may be mildly elevated. Will continue to monitor GERMAN HTN Gout -appears stable, continue home medications -continue CPAP Dispo: anticipate dc home in 24-48 hrs Critical Care: No Time Spent Managing Pts Care (In Minutes): 20
[2020-06-12] MEDS: FUROSEMIDE 20 MG/ 2ML VIAL IV SCH ×2 (07:56→17:00)
[2020-06-12] MEDS: ASPIRIN 81 MG CHEWABLE TABLET PO SCH (07:57)
[2020-06-12] MEDS: CLOPIDOGREL 75 MG TABLET PO SCH (07:57)
[2020-06-12] MEDS ORDERED: INDOMETHACIN 25 MG CAP PO SCH (09:00)
[2020-06-12] MEDS ORDERED: BISOPROLOL/HCTZ 2.5/6.25MG TAB PO SCH (09:00)
[2020-06-12] MEDS ORDERED: REGADENOSON 0.4 MG/5 ML SYR IV ONE (09:33)
[2020-06-12] MEDS ORDERED: HYDRALAZINE HCL 20 MG/ML VIAL IV PRN (12:09)
--- NOTE | 2020-06-12 13:07 | ECHO ---
HEIGHT: 6 ft 1.5 in WEIGHT: 272 lb 0 oz DATE OF STUDY: 06/12/[address]: Guanakito Hu MD 2-DIMENSIONAL: YES M.MODE: YES DOPPLER: YES COLOR FLOW: YES TDS: PORTABLE: DEFINITY: BUBBLE STUDY: DIAGNOSIS: CONGESTIVE HEART FAILURE CARDIAC HISTORY: CATHERIZATION: YES SURGERY: NO PROSTHETIC VALVE: NO PACEMAKER: NO MEASUREMENTS (cm) DIASTOLIC (NORMALS) SYSTOLIC (NORMALS) IVSd 1.4 (0.6-1.2) LA Diam 3.0 (1.9-4.0) LVEF 46% LVIDd 4.7 (3.5-5.7) LVIDs 3.6 (2.0-3.5) %FS 23% LVPWd 1.4 (0.6-1.2) Ao Diam 3.5 (2.0-3.7) 2 DIMENSIONAL ASSESSMENT: RIGHT ATRIUM: NORMAL LEFT ATRIUM: NORMAL RIGHT VENTRICLE: NORMAL LEFT VENTRICLE: MILD LEFT VENTRICULAR HYPERTROPHY TRICUSPID VALVE: NORMAL MITRAL VALVE: NORMAL PULMONIC VALVE: NORMAL AORTIC VALVE: NORMAL PERICARDIAL EFFUSION: NONE AORTIC ROOT: NORMAL LEFT VENTRICULAR WALL MOTION: MILD GLOBAL HYPOKINESIS DOPPLER/COLOR FLOW: SEE BELOW COMMENTS: MILDLY DEPRESSED LEFT VENTRICULAR EJECTION FRACTION 40-45%. MILD GLOBAL HYPOKINESIS. MILD MITRAL REGURGITATION. MILD TRICUSPID REGURGITATION. TECHNOLOGIST: LAMBERT GILLESPIE
--- NOTE | 2020-06-12 13:51 | RAD REPORT ---
EXAM DESCRIPTION: NM - Rest Stress Cardiac Imaging - 06/12/2020 1:39 pm CLINICAL HISTORY: Chest pain COMPARISON: July 2017 TECHNIQUE: The patient was administered 10.1 mCi of Tc 99m Sestamibi prior to resting SPECT imaging of the heart. The patient was then administered 30.9 mCi of Tc 99m Sestamibi following exercise or ph armacologic stress. Multiplanar SPECT images were reviewed. FINDINGS: The end diastolic volume is 148 ml, the end systolic volume is 93 ml, and the ejection fra ction is 37 %. End-diastolic volume has significantly enlarged from the 2017 study with significant d rop in ejection fraction which previously measured 51%. No stress-induced ischemic changes identifiable. There is a large fixed defect extending along the en tire length of the inferior wall from base to apex. This is more pronounced than seen previously. Thi s could be ventricular wall scarring or the accentuated affects of diaphragm attenuation due to the v entriculomegaly. IMPRESSION: No stress-induced ischemic change. Large fixed defect involving the entire inferior wall. This is more pronounced than 2017. This could be scarring, diaphragm attenuation artifact or a combination. End-diastolic volume has increased to 148 milliliters compared to 77 mL and 2017. Ejection fraction i s decreased from 51% to the current 37%.
[2020-06-12 14:00] VITALS: O2SAT 97
--- NOTE | 2020-06-12 14:55 | P.DS ---
Admission Date: 06/10/20 Discharge Date: 06/12/20 Primary Care Provider: Jarad Disposition: ROUTINE DISCHARGE Reason for Admission: CHF exacerbation - Problems (1) CHF exacerbation Current Visit: Yes Status: Acute Qualifiers: Heart failure type: unspecified Qualified Code(s): I50.9 - Heart failure, unspecified (2) CKD (chronic kidney disease) stage 3, GFR 30-59 ml/min Current Visit: No Status: Acute (3) Gout Onset Date: 08/13/17 Current Visit: No Status: Acute Qualifiers: Gout site: foot Encounter type: sequela Chronicity: chronic (4) HTN (hypertension) Onset Date: 08/13/17 Current Visit: No Status: Acute Qualifiers: Hypertension type: essential hypertension (5) Hyperlipidemia Current Visit: No Status: Acute Qualifiers: Hyperlipidemia type: moderate mixed hyperlipidemia not requiring statin therapy Qualified Code(s): E78.2 - Mixed hyperlipidemia (6) Sleep apnea Current Visit: No Status: Acute Qualifiers: Sleep apnea type: obstructive Qualified Code(s): G47.33 - Obstructive sleep apnea (adult) (pediatric) Brief History of Present Illness: Patient came in with acute sob. Was admitted by the hospitalist. Please see the note for clarification. Hospital Course: Patient had a negative stress test. Echo cardiogram showed a mild depression of his ef with 46%. Will discharge him home if cleared by cardiology. Vital Signs/Physical Exam: Temp Pulse Resp BP Pulse Ox 96.3 F L 74 16 147/80 H 97 06/12/20 08:00 06/12/20 12:47 06/12/20 08:00 06/12/20 12:47 06/12/20 08:00 General: Alert, In no apparent distress HEENT: Atraumatic, PERRLA, EOMI Neck: Supple, JVD not distended Respiratory: Clear to auscultation bilaterally, Normal air movement Cardiovascular: Regular rate/rhythm, Normal S1 S2 Gastrointestinal: Normal bowel sounds, No tenderness Musculoskeletal: No tenderness Integumentary: No rashes Neurological: Normal speech, Normal tone, Normal affect Lymphatics: No axilla or inguinal lymphadenopathy Laboratory Data at Discharge: WBC 6.2 K/uL (4.3-10.9) 06/12/20 03:51 Hgb 12.7 g/dL (13.6-17.9) L 06/12/20 03:51 Hct 37.3 % (39.6-49.0) L 06/12/20 03:51 Plt Count 144 K/uL (152-406) L 06/12/20 03:51 PT 12.2 SECONDS (9.5-12.5) 06/10/20 15:21 INR 1.03 06/10/20 15:21 Sodium 143 mmol/L (136-145) 06/12/20 03:51 Potassium 3.9 mmol/L (3.5-5.1) 06/12/20 03:51 BUN 30 mg/dL (7-18) H 06/12/20 03:51 Creatinine 1.58 mg/dL (0.55-1.3) H 06/12/20 03:51 Glucose 129 mg/dL (74-106) H 06/12/20 03:51 Magnesium 2.3 mg/dL (1.8-2.4) 06/12/20 03:51 Total Bilirubin 0.5 mg/dL (0.2-1.0) 06/11/20 03:27 AST 28 U/L (15-37) 06/11/20 03:27 ALT 44 U/L (12-78) 06/11/20 03:27 Alkaline Phosphatase 79 U/L (45-117) 06/11/20 03:27 Troponin I 0.08 ng/mL (0.0-0.045) H 06/11/20 09:35 Triglycerides 190 mg/dL (<150) H 06/10/20 21:18 Cholesterol 138 mg/dL (<200) 06/10/20 21:18 HDL Cholesterol 50 mg/dL (40-60) 06/10/20 21:18 Cholesterol/HDL Ratio 2.76 06/10/20 21:18 Home Medications: Aspirin 81 mg PO DAILY 90 Days #90 tab.chew 05/06/20 Atorvastatin Calcium [Lipitor] 80 mg PO BEDTIME #30 tablet 05/06/20 Clopidogrel Bisulfate [Plavix] 75 mg PO DAILY 90 Days #90 tablet 05/06/20 Bisoprolol/Hydrochlorothiazide [Bisoprolol-Hctz 2.5-6.25 mg Tb] 1 tab PO DAILY 06/10/20 Indomethacin 1 cap PO TID 06/10/20 Diet: AHA Activity: Ad floyd Followup: Jarad,Orlando, MD [Primary Care Provider] - Eric Zamora MD [ACTIVE - CAN ADMIT] - Time spent managing pt's care (in minutes): 40
[2020-06-12 16:47] VITALS: BP 131/61; TEMP 97.2
--- NOTE | 2020-06-14 11:44 | TREADPHA ---
DX: CHEST PAIN Date of Study: 06/12/2020 Ht: 6' 1.5 " Wt: 272 lb 0 oz Consulting Physician: TRUDY MEDICATIONS: ASPIRIN, LIPITOR, PLAVIX, LASIX HISTORY: 69 YEAR OLD MALE ADMITTED WITH COMPLAINTS OF CHEST PAIN. HISTORY OF HYPERTENSION, CARDIAC STENT AND GOUT. PHYSICIAL EXAMINATION: RESTING B.P.: 181/92 RESTING H.R.: 76 RESTING EKG: NORMAL SINUS RHYTHM, NORMAL ST PROTOCOL: LEXISCAN EXERCISE TIME: 3:30 B.P. AT PEAK STRESS: 192/86 IMPRESSION: NEGATIVE EXCERICE TOLERANCE TEST. NO ARRYTHMIAS. NORMAL BLOOD PRESSURE RESPONSE. SEE NUCLEAR MEDICINE REPORT.
== END 2020-06-12 17:09 | disposition home or self-care (01) ==
LOC: ER 14:49 → ERHOLD 16:43 → 2ND 18:02
PROVIDERS: ADMIT Hospitalist; ATTEND Internal Medicine
DX: I13.0 Hypertensive heart and chronic kidney disease with heart failure and stage 1 through stage 4 chronic kidney disease, or unspecified chronic kidney disease (principal); I50.9 Heart failure, unspecified; N18.30 Chronic kidney disease, stage 3 unspecified; G47.33 Obstructive sleep apnea (adult) (pediatric); E78.2 Mixed hyperlipidemia; M1A.0790 Idiopathic chronic gout, unspecified ankle and foot, without tophus (tophi); Z79.82 Long term (current) use of aspirin; Z79.02 Long term (current) use of antithrombotics/antiplatelets; R07.9 Chest pain, unspecified; Z95.5 Presence of coronary angioplasty implant and graft; I25.10 Atherosclerotic heart disease of native coronary artery without angina pectoris; R74.8 Abnormal levels of other serum enzymes; Z20.828 Contact with and (suspected) exposure to other viral communicable diseases
CPT/HCPCS: 93017; 93306; 85025 ×3; 80048 ×2; 36415 ×2; 83735 ×2; 85610; 80061; 84484 ×4; 80053; 83880 ×2; 71045; 97162; 94760 ×4; 94660 ×2; 78452; 99285; U0002; J0360; J1940 ×4; J2785; A9500; G0378 ×4

== ENCOUNTER 2020-09-13 15:44 | Observation (INO) | payer OTHER ==
[2020-09-13] MEDS ORDERED: FUROSEMIDE 100 MG/10 ML VIAL IV ONE (16:37)
--- NOTE | 2020-09-13 16:39 | RAD REPORT ---
EXAM DESCRIPTION: RAD - Chest Single View - 09/13/2020 4:32 pm CLINICAL HISTORY: DYSPNEA Chest pain. COMPARISON: Chest Single View dated 06/10/2020; Chest Single View dated 05/04/2020; Chest Single View dated 12/13/2018; Chest Single View dated 08/12/2017 FINDINGS: Portable technique limits examination quality. Mildly elevated left hemidiaphragm, unchanged. The lungs are grossly clear. The heart is mildly promi nent size with a tortuous thoracic aorta. Cervical spine hardware plate noted. IMPRESSION: No acute intrathoracic process suspected.
[2020-09-13 16:55] LABS: Absolute Lymphocytes (CBC) 1.4 K/uL (0.7-4.9); Basophils % 0.5 % (0-1.3); Hematocrit 36.8 % (39.6-49.0); Lymphocytes % 42.9 % (15.3-44.8); MPV 9.2 fL (7.6-11.3); RBC Red Blood Cell Count 4.03 M/uL (4.33-5.43)
[2020-09-13 17:14] LABS: Magnesium 2.4 mg/dL (1.8-2.4); Potassium 4.2 mmol/L (3.5-5.1); Troponin (Emerg Dept Use Only) 0.09 ng/mL (0.0-0.045)
--- NOTE | 2020-09-13 17:26 | EDPHYS ---
Physician Documentation [facility] Name: Tang Lewis Age: 70 yrs Sex: Male : 1950 Arrival Date: 09/13/2020 Time: 15:46 Bed 2 Private MD: ED Physician Morgan Hu HPI: 09/13 16:28 This 70 yrs old Black Male presents to ER via Ambulatory with complaints of Shortness rn Of Breath. 16:28 The patient has shortness of breath with light activity, while supine. Onset: The rn symptoms/episode began/occurred 1 week(s) ago. Duration: The symptoms are intermittent. The patient's shortness of breath is aggravated by exertion, supine position. Associated signs and symptoms: Pertinent positives: This patient does not have any pertinent positive signs or symptoms associated with shortness of breath. Pertinent negatives: non-productive cough, productive cough, fever, hemoptysis. Severity of symptoms: At their worst the symptoms were moderate in the emergency department the symptoms are unchanged. The patient has experienced similar episodes in the past. The patient has not recently seen a physician. Reports sob, for 1 week, backed of his lasix for a while because couldn't work and urinate easily, no fever/cough/chest pain. . Historical: - Allergies: 15:53 NSAIDS; ll1 - PMHx: 15:53 Gout; Hypertension; cardiac stent; CHF; ll1 - PSHx: 15:53 cervical spine sx; umbilical hernia repair (Dr. Tolentino); ll1 - Immunization history:: Flu vaccine is up to date. - Social history:: Smoking status: Patient denies any tobacco usage or history of. - Family history:: not pertinent. - Hospitalizations: : No recent hospitalization is reported. ROS: 16:28 Constitutional: Negative for fever, chills, and weight loss, Eyes: Negative for injury, rn pain, redness, and discharge, Neck: Negative for injury, pain, and swelling, Cardiovascular: Negative for chest pain, palpitations Respiratory: Negative for cough, wheezing, and pleuritic chest pain, Abdomen/GI: Negative for abdominal pain, nausea, vomiting, diarrhea, and constipation, Back: Negative for injury and pain, MS/Extremity: Negative for injury and deformity, Skin: Negative for injury, rash, and discoloration, Neuro: Negative for headache, weakness, numbness, tingling, and seizure. Exam: 16:28 Constitutional: Overweight male, no acute distress Head/Face: Normocephalic, rn atraumatic. ENT: No stridor Cardiovascular: Regular rate and rhythm. No pulse deficits. Respiratory: No increased work of breathing, no retractions or nasal flaring. Abdomen/GI: soft, non-tender Skin: Warm, dry MS/ Extremity: Pulses equal, no cyanosis. No lower ext edema, equal circumference. Neuro: Awake and alert, GCS 15 Vital Signs: 15:53 BP 144 / 85; Pulse 78; Resp 18; Temp 97.5; Pulse Ox 100% ; Weight 123.83 kg; Height 6 ll1 ft. 1 in. (185.42 cm); Pain 8/10; 17:11 BP 141 / 79; Pulse 65; Resp 18; Pulse Ox 96% ; sv 18:37 Pulse 81; Resp 20; Pulse Ox 96% ; sv 19:41 BP 133 / 87; Pulse 80; Resp 18; Pulse Ox 95% on R/A; mg2 15:53 Body Mass Index 36.02 (123.83 kg, 185.42 cm) ll1 MDM: 16:03 Patient medically screened. rn 17:24 Differential diagnosis: Anemia CHF exacerbation, Myocardial Infarction pulmonary edema. rn Data reviewed: vital signs, nurses notes, lab test result(s), EKG, radiologic studies, plain films, and as a result, I will admit patient. Counseling: I had a detailed discussion with the patient and/or guardian regarding: the historical points, exam findings, and any diagnostic results supporting the discharge/admit diagnosis, lab results, radiology results, the need for further work-up and treatment in the hospital. Response to treatment: the patient's symptoms have mildly improved after treatment, and as a result, I will admit patient. Admission orders: after a detailed discussion of the patient's condition and case, the admit orders are written by me. ED course: Pt admitted to Dr. Abraham for CHF/volume overload. . 09/13 16:14 Order name: Basic Metabolic Panel; Complete Time: 17:15 rn 09/13 16:14 Order name: CBC with Diff; Complete Time: 17:07 rn 09/13 16:14 Order name: Magnesium; Complete Time: 17:15 rn 09/13 16:14 Order name: NT PRO-BNP; Complete Time: 17:15 rn 09/13 16:14 Order name: Troponin (emerg Dept Use Only); Complete Time: 17:15 rn 09/13 18:48 Order name: COVID-19 ss 09/13 16:14 Order name: XRAY Chest (1 view); Complete Time: 16:45 rn 09/13 16:14 Order name: EKG; Complete Time: 16:15 rn 09/13 16:14 Order name: Cardiac monitoring; Complete Time: 16:20 rn 09/13 16:14 Order name: EKG - Nurse/Tech; Complete Time: 16:20 rn 09/13 18:12 Order name: Diet 2 Gm Sodium; Complete Time: 18:13 sv 09/13 19:33 Order name: CORONAVIRUS EDDE 09/13 20:23 Order name: SARS-COV-2 RT PCR EDDE 09/13 16:14 Order name: IV Saline Lock; Complete Time: 16:32 rn 09/13 16:14 Order name: Labs collected and sent; Complete Time: 16:32 rn 09/13 16:14 Order name: O2 Per Protocol; Complete Time: 16:20 rn 09/13 16:14 Order name: O2 Sat Monitoring; Complete Time: 16:21 rn Administered Medications: 16:32 Drug: Lasix 80 mg Route: IVP; Site: right forearm; sv 16:53 Follow up: Response: No adverse reaction sv Disposition: 09/13/20 17:26 Hospitalization ordered by Orlando Abraham for Observation. Preliminary diagnosis are Unspecified combined systolic (congestive) and diastolic (congestive) heart failure, Dyspnea, unspecified. - Bed requested for Telemetry/MedSurg (observation). - Status is Observation. ll1 - Condition is Stable. - Problem is an ongoing problem. - Symptoms have improved. Signatures: Dispatcher [employer] [facility] Keara Crowley RN Valentine Soliman RN Morgan Govea MD MD rn Lewis, Lynsay, RN RN ll1 Corrections: (The following items were deleted from the chart) 16:37 16:28 Constitutional: Overweight male, no acute distress rn rn 20:44 17:26 Hospitalization Ordered by Orlando Abraham MD for Observation. Preliminary diagnosis dw is Unspecified combined systolic (congestive) and diastolic (congestive) heart failure; Dyspnea, unspecified. Bed requested for Telemetry/MedSurg (observation). Status is Observation. Condition is Stable. Problem is an ongoing problem. Symptoms have improved. rn 21:19 20:44 09/13/2020 17:26 Hospitalization Ordered by Orlando Abraham MD for Observation. ll1 Preliminary diagnosis is Unspecified combined systolic (congestive) and diastolic (congestive) heart failure; Dyspnea, unspecified. Bed requested for Telemetry/MedSurg (observation). Status is Observation. Condition is Stable. Problem is an ongoing problem. Symptoms have improved. dw
--- NOTE | 2020-09-13 17:26 | ER ---
[facility]urse's Notes [facility] Name: Tang Lewis Age: 70 yrs Sex: Male : 1950 Arrival Date: 09/13/2020 Time: 15:46 Bed 2 Private MD: Diagnosis: Unspecified combined systolic (congestive) and diastolic (congestive) heart failure;Dyspnea, unspecified Presentation: 09/13 15:53 Chief complaint: Patient states: Chest tightness and SOB with exertion for 1 week. ll1 Feels like his last CHF episode 3 months ago. Coronavirus screen: Client denies travel out of the [place] in the last 14 days. At this time, the client does not indicate any symptoms associated with coronavirus-19. Ebola Screen: Patient denies travel to an Ebola-affected area in the 21 days before illness onset. Initial Sepsis Screen: Does the patient meet any 2 criteria? No. Patient's initial sepsis screen is negative. Does the patient have a suspected source of infection? No. Patient's initial sepsis screen is negative. Risk Assessment: Do you want to hurt yourself or someone else? Patient reports no desire to harm self or others. Onset of symptoms was September 07, 2020. 15:53 Method Of Arrival: Ambulatory [facility] 15:53 Acuity: [place] 3 ll1 Historical: - Allergies: 15:53 NSAIDS; ll1 - PMHx: 15:53 Gout; Hypertension; cardiac stent; CHF; ll1 - PSHx: 15:53 cervical spine sx; umbilical hernia repair (Dr. Tolentino); ll1 - Immunization history:: Flu vaccine is up to date. - Social history:: Smoking status: Patient denies any tobacco usage or history of. - Family history:: not pertinent. - Hospitalizations: : No recent hospitalization is reported. Screenin:01 Abuse screen: Denies threats or abuse. Denies injuries from another. Nutritional sv screening: No deficits noted. Tuberculosis screening: No symptoms or risk factors identified. Fall Risk None identified. Assessment: 16:30 General: Appears in no apparent distress. comfortable, well groomed, well developed, sv Behavior is calm, cooperative, appropriate for age. Pain: Complains of pain in chest Pain does not radiate. Pain currently is 8 out of 10 on a pain scale. Quality of pain is described as tight Pain began 2-3 days ago. Is. Neuro: Level of Consciousness is awake, alert, obeys commands, Oriented to person, place, time, situation, Moves all extremities. Full function Gait is steady, Speech is normal. Cardiovascular: Patient's skin is warm and dry. Respiratory: Reports shortness of breath on exertion Airway is patent Respiratory effort is even, unlabored, Respiratory pattern is regular, symmetrical. Derm: Skin is pink, warm \T\ dry. 18:12 Reassessment: Patient appears in no apparent distress at this time. No changes from sv previously documented assessment. Patient and/or family updated on plan of care and expected duration. Pain level reassessed. Patient is alert, oriented x 3, equal unlabored respirations, skin warm/dry/pink. 18:20 Reassessment: Patient appears in no apparent distress at this time. No changes from sv previously documented assessment. Patient and/or family updated on plan of care and expected duration. Pain level reassessed. Patient is alert, oriented x 3, equal unlabored respirations, skin warm/dry/pink. Pt given sandwich, chips and water. Ok by Dr Hu and to order a low sodium diet. Vital Signs: 15:53 BP 144 / 85; Pulse 78; Resp 18; Temp 97.5; Pulse Ox 100% ; Weight 123.83 kg; Height 6 ll1 ft. 1 in. (185.42 cm); Pain 8/10; 17:11 BP 141 / 79; Pulse 65; Resp 18; Pulse Ox 96% ; sv 18:37 Pulse 81; Resp 20; Pulse Ox 96% ; sv 19:41 BP 133 / 87; Pulse 80; Resp 18; Pulse Ox 95% on R/A; mg2 15:53 Body Mass Index 36.02 (123.83 kg, 185.42 cm) ll1 ED Course: 15:46 Patient arrived in ED. ds1 15:54 Triage completed. ll1 15:54 Arm band placed on. ll1 16:01 Keara Crowley RN is Primary Nurse. sv 16:01 Patient has correct armband on for positive identification. Placed in gown. Bed in low sv position. Call light in reach. Door closed. Head of bed elevated. 16:02 Morgan Hu MD is Attending Physician. rn 16:02 Patient maintains SpO2 saturation greater than 95% on room air. sv 16:10 EKG done, by ED staff, reviewed by Morgan Hu MD. 3 16:23 Initial lab(s) drawn, by ok, sent to lab. Inserted saline lock: 20 gauge in right dh3 forearm, using aseptic technique. Blood collected. 16:30 school bus monitor on. Pulse ox on. NIBP on. sv 16:30 X-ray(s) taken. sv 16:32 XRAY Chest (1 view) In Process Unspecified. EDMS 17:25 Orlando Abraham MD is Hospitalizing Provider. rn 18:56 Awaiting bed assignment. sv 19:03 Report given to Bakari WELCH and Toan WELCH. sv 19:14 Primary Nurse role handed off by Keara Crowley RN sv 19:24 Bakari Bates, YURI is Primary Nurse. mg2 19:42 No provider procedures requiring assistance completed. Patient admitted, IV remains in mg2 place. 19:42 COVID swab sent to lab. mg2 Administered Medications: 16:32 Drug: Lasix 80 mg Route: IVP; Site: right forearm; sv 16:53 Follow up: Response: No adverse reaction sv Outcome: 17:26 Decision to Hospitalize by Provider. rn 21:19 Patient left the ED. ll1 Signatures: Dispatcher [employer] [facility] Keara Crowley, RN RN Krysta Tariq ds1 Morgan Hu MD MD rn [place], [place] [id number] Bakari Bates, YURI WELCH mg2 Von Beckwith RN RN ll1
--- NOTE | 2020-09-13 19:32 | P.HP ---
Certification for Inpatient Patient admitted to: Observation With expected LOS: <2 Midnights Patient will require the following post-hospital care: None Practitioner: I am a practitioner with admitting privileges, knowledge of patient current condition, hospital course, and medical plan of care. Services: Services provided to patient in accordance with Admission requirements found in Title 42 Section 412.3 of the Code of Federal Regulations Patient History Date of Service: 09/13/20 Primary Care Provider: Jarad Reason for admission: chf exacerbation History of Present Illness: Patient is an office patient of [employer]. He has a history of a GA last April. he has been having a mildly depressed EF in May. However as it is not 6 months after his GA even today. Not the clinical definition of heart failure. The patient is on Lasix to control his symptoms. He was not taking them for the past 3-4 days. He felt that taking it would keep him going to the bathroom throughout the day. This was embarrassing and made the patient feel like he was not pulling his own weight. Without the lasix he was having decreased exercise tolerance. He was also sleeping sitting up at night as he could not get comfortable lying flat. Eventually as his symptoms worsened he came to the ER. He had an elevated bnp. Clear cxr. His creatine is worsened from his baseline. Still stage 3 ckd. Allergies NSAIDS Allergy (Unknown, Uncoded 05/04/20 23:48) KIDNEY DAMAGE Home Medications: Aspirin 81 mg PO DAILY 90 Days #90 tab.chew 05/06/20 Atorvastatin Calcium [Lipitor] 80 mg PO BEDTIME #30 tablet 05/06/20 Clopidogrel Bisulfate [Plavix] 75 mg PO DAILY 90 Days #90 tablet 05/06/20 Bisoprolol/Hydrochlorothiazide [Bisoprolol-Hctz 2.5-6.25 mg Tb] 1 tab PO DAILY 06/10/20 Indomethacin 1 cap PO TID 06/10/20 Furosemide 40 mg PO DAILY 30 Days #30 tablet 06/12/20 - Past Medical/Surgical History Diabetic: No -: hyperlipidemia -: htn -: gout -: sleep apnea -: GERMAN -: CKD -: hernia repair -: sleep apnea -: cervical spine surgery -: r knee surgery - Family History Father Notes: throat cancer Brother -: Heart disease, Kidney disease - Social History Alcohol use: No CD- Drugs: No Caffeine use: Yes Review of Systems 10-point ROS is otherwise unremarkable Respiratory: Shortness of Breath (exertional dyspnea) Cardiovascular: Orthopnea, Edema Physical Examination - Physical Exam General: Alert, In no apparent distress HEENT: Atraumatic, PERRLA, Mucous membr. moist/pink, EOMI, Sclerae nonicteric Neck: Supple, 2+ carotid pulse no bruit, No LAD, Without JVD or thyroid abnormality Respiratory: Clear to auscultation bilaterally, Normal air movement Cardiovascular: Regular rate/rhythm, Normal S1 S2 Gastrointestinal: Normal bowel sounds, No tenderness Musculoskeletal: No tenderness Integumentary: No rashes Neurological: Normal gait, Normal speech, Normal strength at 5/5 x4 extr, Normal tone, Normal affect Lymphatics: No axilla or inguinal lymphadenopathy - Studies Laboratory Data (last 24 hrs) 09/13/20 16:24: WBC 3.2 L, Hgb 12.4 L, Hct 36.8 L, Plt Count 138 L 09/13/20 16:24: Sodium 143, Potassium 4.2, BUN 28 H, Creatinine 1.86 H, Glucose 105, Magnesium 2.4 Assessment and Plan - Problems (Diagnosis) (1) CHF exacerbation Current Visit: No Status: Acute Plan: will keep him on lasix. He has diuresised 1.1 lts since admission. Will start him on 40mg iv qday. We may start him on spirnolactone to improve the kidney function. Qualifiers: Heart failure type: systolic Qualified Code(s): I50.23 - Acute on chronic systolic (congestive) heart failure (2) CKD (chronic kidney disease) stage 3, GFR 30-59 ml/min Current Visit: No Status: Acute Plan: slight increase in his baseline creatine. Will continue monitoring. Will consider spirnolactone in the morning. (3) HTN (hypertension) Onset Date: 08/13/17 Current Visit: No Status: Acute Plan: will continue home meds in the morning Qualifiers: Hypertension type: essential hypertension (4) Hyperlipidemia Current Visit: No Status: Acute Qualifiers: Hyperlipidemia type: moderate mixed hyperlipidemia not requiring statin therapy (5) Sleep apnea Current Visit: No Status: Acute Plan: Will have the patient use the hospital cpap or his own. Qualifiers: Sleep apnea type: obstructive Discharge Plan: Home - Advance Directives Does patient have a Living Will: Yes Does patient have a Durable POA for Healthcare: Yes - Code Status/Comfort Care Code Status Assessed: Yes Code Status: Full Code Physician Review: Patient Assessed, Agree with Above Assessment and Plan Critical Care: No Time Spent Managing Pts Care (In Minutes): 50
[2020-09-14 00:14] VITALS: BMI 30.7
[2020-09-14 06:12] LABS: Absolute Lymphocytes (CBC) 1.2 K/uL (0.7-4.9); Basophils % 0.6 % (0-1.3); Hematocrit 38.3 % (39.6-49.0); Lymphocytes % 43.2 % (15.3-44.8); MPV 10.1 fL (7.6-11.3); Potassium 4.1 mmol/L (3.5-5.1); RBC Red Blood Cell Count 4.15 M/uL (4.33-5.43)
[2020-09-14] MEDS: FUROSEMIDE 20 MG/ 2ML VIAL IV SCH ×2 (06:16→09:00)
[2020-09-14 06:20] LABS: Magnesium 2.5 mg/dL (1.8-2.4)
[2020-09-14 06:22] LABS: Thyroid Stimulating Hormone 5.42 uIU/mL (0.360-3.740)
[2020-09-14] MEDS ORDERED: PANTOPRAZOLE 40MG TABLET PO SCH (06:30)
--- NOTE | 2020-09-14 09:43 | P.DS ---
Admission Date: 09/13/20 Discharge Date: 09/14/20 Primary Care Provider: Jarad Disposition: ROUTINE DISCHARGE Discharge Condition: GOOD Reason for Admission: chf exacerbation - Problems (1) CHF exacerbation Current Visit: No Status: Acute Qualifiers: Heart failure type: systolic Qualified Code(s): I50.23 - Acute on chronic systolic (congestive) heart failure (2) CKD (chronic kidney disease) stage 3, GFR 30-59 ml/min Current Visit: No Status: Acute (3) HTN (hypertension) Onset Date: 08/13/17 Current Visit: No Status: Acute Qualifiers: Hypertension type: essential hypertension (4) Hyperlipidemia Current Visit: No Status: Acute Qualifiers: Hyperlipidemia type: moderate mixed hyperlipidemia not requiring statin therapy (5) Sleep apnea Current Visit: No Status: Acute Qualifiers: Sleep apnea type: obstructive (6) Hypothyroid Current Visit: Yes Status: Acute Qualifiers: Hypothyroidism type: acquired Qualified Code(s): E03.9 - Hypothyroidism, unspecified Brief History of Present Illness: Patient is an office patient of [facility]. He has a history of a SC last April. he has been having a mildly depressed EF in May. However as it is not 6 months after his SC even today. Not the clinical definition of heart failure. The patient is on Lasix to control his symptoms. He was not taking them for the past 3-4 days. He felt that taking it would keep him going to the bathroom throughout the day. This was embarrassing and made the patient feel like he was not pulling his own weight. Without the lasix he was having decreased exercise tolerance. He was also sleeping sitting up at night as he could not get comfortable lying flat. Eventually as his symptoms worsened he came to the ER. He had an elevated bnp. Clear cxr. His creatine is worsened from his baseline. Still stage 3 ckd. Hospital Course: Patient was admitted given 80mg of lasix on admission and another 40mg in the morning. He had a least a lt of fluid diuresis The patient is feeling better this morning He had a bump in his troponin. Which probably just a leak NO reported chest pain Will have his follow up with Dr Flor He has had an elevation in his creatine The patient's baseline is 1.5 and he went up to 1.8. Is coming down today. He is stage 2 The patient will be refered to Dr Burkett as an outpatient Will start him on spirnolactone Will have him follow up with me on Friday when we can recheck his creatine. Had a low tsh and t4. Will start him on levothyroxine 75mcg. Recheck in 3 months as an outpatient Vital Signs/Physical Exam: Temp Pulse Resp BP Pulse Ox 97.7 F 75 18 129/67 93 09/14/20 04:00 09/14/20 06:16 09/14/20 04:00 09/14/20 06:16 09/14/20 04:00 General: Alert, In no apparent distress HEENT: Atraumatic, PERRLA, EOMI Neck: Supple, JVD not distended Respiratory: Clear to auscultation bilaterally, Normal air movement Cardiovascular: Regular rate/rhythm, Normal S1 S2 Gastrointestinal: Normal bowel sounds, No tenderness Musculoskeletal: No tenderness Integumentary: No rashes Neurological: Normal speech, Normal tone, Normal affect Lymphatics: No axilla or inguinal lymphadenopathy Laboratory Data at Discharge: WBC 2.7 K/uL (4.3-10.9) L D 09/14/20 05:24 Hgb 12.7 g/dL (13.6-17.9) L 09/14/20 05:24 Hct 38.3 % (39.6-49.0) L 09/14/20 05:24 Plt Count 137 K/uL (152-406) L 09/14/20 05:24 Sodium 141 mmol/L (136-145) 09/14/20 05:24 Potassium 4.1 mmol/L (3.5-5.1) 09/14/20 05:24 BUN 30 mg/dL (7-18) H 09/14/20 05:24 Creatinine 1.77 mg/dL (0.55-1.3) H 09/14/20 05:24 Glucose 138 mg/dL (74-106) H 09/14/20 05:24 Magnesium 2.5 mg/dL (1.8-2.4) H 09/14/20 05:24 Troponin I 0.09 ng/mL (0.0-0.045) H 09/14/20 02:04 Home Medications: Aspirin 81 mg PO DAILY 90 Days #90 tab.chew 05/06/20 Atorvastatin Calcium [Lipitor] 80 mg PO BEDTIME #30 tablet 05/06/20 Bisoprolol/Hydrochlorothiazide [Bisoprolol-Hctz 2.5-6.25 mg Tb] 1 tab PO DAILY 06/10/20 Furosemide 40 mg PO DAILY 30 Days #30 tablet 06/12/20 Diclofenac Sodium 1 tab PO BID PRN 09/13/20 Levothyroxine [Synthroid*] 75 mcg PO [id number] 90 Days #90 tab 09/14/20 Spironolactone 25 mg PO DAILY 90 Days #90 tablet 09/14/20 New Medications: Spironolactone 25 mg PO DAILY 90 Days #90 tablet Levothyroxine [Synthroid*] 75 mcg PO [id number] 90 Days #90 tab Diet: AHA Activity: Ad floyd Followup: Elías Yoder MD [ACTIVE - CAN ADMIT] - Sathish Flor MD [ACTIVE - CAN ADMIT] - Orlando Abraham MD [Primary Care Provider] - 09/19/20 8:20 am Time spent managing pt's care (in minutes): 45
[2020-09-14 10:26] VITALS: BP 138/70; TEMP 97.8
[2020-09-14] MEDS ORDERED: ENOXAPARIN 40 MG/0.4 ML SQ SCH (17:00)
== END 2020-09-14 11:42 | disposition home or self-care (01) ==
LOC: ER 15:44 → ERHOLD 17:33 → 2ND 20:59
PROVIDERS: ADMIT Internal Medicine; ATTEND Internal Medicine
DX: I13.0 Hypertensive heart and chronic kidney disease with heart failure and stage 1 through stage 4 chronic kidney disease, or unspecified chronic kidney disease (principal); I50.23 Acute on chronic systolic (congestive) heart failure; N18.30 Chronic kidney disease, stage 3 unspecified; E03.9 Hypothyroidism, unspecified; E78.2 Mixed hyperlipidemia; Z79.82 Long term (current) use of aspirin; Z20.822 Contact with and (suspected) exposure to COVID-19; M10.9 Gout, unspecified; G47.33 Obstructive sleep apnea (adult) (pediatric)
CPT/HCPCS: 85025 ×2; 80048 ×2; 36415; 83735 ×2; 84443; 84484 ×3; 84439; 83880 ×2; 71045; 96374; 99285; U0003; J1940

== ENCOUNTER 2020-11-08 11:59 | Inpatient (IN) | payer OTHER ==
[2020-11-08 14:23] LABS: Absolute Lymphocytes (CBC) 1.1 K/uL (0.7-4.9); Basophils % 0.1 % (0-1.3); Hematocrit 33.9 % (39.6-49.0); Lymphocytes % 10.4 % (15.3-44.8); MPV 8.8 fL (7.6-11.3); RBC Red Blood Cell Count 3.72 M/uL (4.33-5.43)
[2020-11-08 14:28] LABS: Albumin 3.9 g/dL (3.4-5.0); Bilirubin Direct 0.2 mg/dL (0-0.2); Magnesium 2.7 mg/dL (1.8-2.4); Protein, Total 7.4 g/dL (6.4-8.2); Troponin (Emerg Dept Use Only) 0.06 ng/mL (0.0-0.045)
[2020-11-08 14:36] LABS: Protime INR 1.23
--- NOTE | 2020-11-08 14:50 | RAD REPORT ---
EXAM DESCRIPTION: RAD - Chest Single View - 11/08/2020 2:16 pm CLINICAL HISTORY: SOB COMPARISON: Portable September 13 TECHNIQUE: AP portable chest image was obtained 11/08/2020 2:16 pm . FINDINGS: No peripheral mass or consolidation. Interstitial pattern is similar to comparison. Patien t has significant but stable left hemidiaphragm elevation compared to the right. Heart and vasculatur e are normal. No measurable pleural effusion and no pneumothorax. No acute bony abnormality seen. No acute aortic findings suspected. IMPRESSION: No acute cardiopulmonary process. Above detailed findings are similar to the August comparison study.
[2020-11-08 15:20] LABS: Platelet Estimate DECR
[2020-11-08 15:21] LABS: Blood Morphology Comment NOT SEEN (NOT SEEN)
[2020-11-08] MEDS ORDERED: FUROSEMIDE 20 MG/ 2ML VIAL ONE ×2 (15:29→16:29)
[2020-11-08] MEDS ORDERED: CLOPIDOGREL 75 MG TABLET ONE (15:29)
--- NOTE | 2020-11-08 15:31 | ER ---
Nurse's Notes [facility] Name: Tang Lewis Age: 70 yrs Sex: Male : 1950 Arrival Date: 11/08/2020 Time: 12:02 Bed 25 Private MD: Diagnosis: Unspecified combined systolic (congestive) and diastolic (congestive) heart failure;Orthopnea Presentation: 11/08 12:15 Chief complaint: Patient states: Dizzy, SOB, near syncope feeling at times for 1 week. ll1 States last time he felt this way it was CHF exacerbation. Hard to breathe laying flat. Taking medications as prescribed. Coronavirus screen: Client denies travel out of the [place] in the last 14 days. difficulty breathing, shortness of breath, Client presents with at least one sign or symptom that may indicate coronavirus-19. Standard/surgical mask placed on the client. Ebola Screen: Patient denies travel to an Ebola-affected area in the 21 days before illness onset. Initial Sepsis Screen: Does the patient meet any 2 criteria? No. Patient's initial sepsis screen is negative. Does the patient have a suspected source of infection? Yes: Productive cough/pneumonia. Risk Assessment: Do you want to hurt yourself or someone else? Patient reports no desire to harm self or others. Onset of symptoms was November 01, 2020. 12:15 Method Of Arrival: Ambulatory [facility] 12:15 Acuity: [place] 3 ll1 Historical: - Allergies: 12:19 NSAIDS; ll1 - Home Meds: 15:17 bystolic-hctz 2.5/6.25 daily [Active]; clopidogrel 75 mg Oral tab 1 tab once daily ca1 [Active]; aspirin 81 mg Oral TbEC 1 tab once daily [Active]; - PMHx: 12:19 cardiac stent; CHF; Gout; Hypertension; ll1 - PSHx: 12:19 cervical spine sx; umbilical hernia repair (Dr. Tolentino); ll1 - Immunization history:: Flu vaccine is up to date. - Social history:: Smoking status: Patient denies any tobacco usage or history of. Screenin:30 Abuse screen: Denies threats or abuse. Denies injuries from another. Nutritional ca1 screening: No deficits noted. Tuberculosis screening: No symptoms or risk factors identified. Fall Risk IV access (20 points). Assessment: 13:30 General: Appears in no apparent distress. comfortable, Behavior is calm, cooperative, ca1 appropriate for age. Pain: Complains of pain in anterior aspect of left upper chest Pain currently is 6 out of 10 on a pain scale. Quality of pain is described as tightness Pain began 2-3 days ago. Is intermittent. Neuro: Level of Consciousness is awake, alert, obeys commands, Oriented to person, place, time, situation. Cardiovascular: Heart tones S1 S2 present Capillary refill < 3 seconds Patient's skin is warm and dry. Rhythm is sinus rhythm. Respiratory: Reports shortness of breath at rest on exertion Airway is patent Respiratory effort is even, unlabored, Respiratory pattern is regular, symmetrical, Breath sounds are clear bilaterally. Denies cough. GI: Abdomen is round non-distended, Bowel sounds present X 4 quads. Abd is soft and non tender X 4 quads. : No signs and/or symptoms were reported regarding the genitourinary system. EENT: No signs and/or symptoms were reported regarding the EENT system. Derm: Skin is intact, is healthy with good turgor, Skin is pink, warm \T\ dry. Musculoskeletal: Circulation, motion, and sensation intact. Capillary refill < 3 seconds. 14:13 Reassessment: Patient appears in no apparent distress at this time. Patient and/or ca1 family updated on plan of care and expected duration. Pain level reassessed. Patient is alert, oriented x 3, equal unlabored respirations, skin warm/dry/pink. 15:15 Reassessment: Patient appears in no apparent distress at this time. Patient and/or ca1 family updated on plan of care and expected duration. Pain level reassessed. Patient is alert, oriented x 3, equal unlabored respirations, skin warm/dry/pink. 16:30 Reassessment: Patient appears in no apparent distress at this time. Patient and/or ca1 family updated on plan of care and expected duration. Pain level reassessed. Patient is alert, oriented x 3, equal unlabored respirations, skin warm/dry/pink. Vital Signs: 12:15 BP 173 / 77; Pulse 84; Resp 18; Temp 97.8; Pulse Ox 99% on R/A; Weight 119.29 kg; ll1 Height 6 ft. 1 in. (185.42 cm); Pain 8/10; 13:34 BP 152 / 71; Pulse 70; Resp 16 S; Pulse Ox 98% on R/A; ca1 14:13 BP 152 / 71; Pulse 70; Resp 20 S; Pulse Ox 99% on R/A; ca1 15:15 BP 151 / 80; Pulse 71; Resp 16 S; Pulse Ox 98% on R/A; ca1 16:30 BP 168 / 81; Pulse 81; Resp 20 S; Pulse Ox 98% on R/A; ca1 12:15 Body Mass Index 34.70 (119.29 kg, 185.42 cm) ll1 ED Course: 12:02 Patient arrived in ED. ds1 12:18 Triage completed. ll1 12:19 Arm band placed on. ll1 13:13 Vicki Milan, RN is Primary Nurse. ca1 13:17 Sundeep Ellington PA is PHCP. cp 13:17 Maged Fajardo MD is Attending Physician. cp 13:30 Patient has correct armband on for positive identification. Bed in low position. Call ca1 light in reach. Side rails up X2. lodging facilities attendant on. Pulse ox on. NIBP on. Warm blanket given. 13:43 EKG done, by ED staff, reviewed by Sundeep BERRIOS. ca1 13:50 Initial lab(s) drawn, by or, sent to lab. Inserted saline lock: 20 gauge in left ca1 forearm, using aseptic technique. Blood collected. 14:16 XRAY Chest (1 view) In Process Unspecified. EDMS 15:26 Notified Nurse Practitioner and/or Physician [employer] of a critical lab result(s), ca1 Platelet 19. 15:29 Orlando Abraham MD is Hospitalizing Provider. cp 15:58 CT Head Brain wo Cont In Process Unspecified. EDMS 16:47 No provider procedures requiring assistance completed. ca1 16:47 Patient admitted, IV remains in place. ca1 Administered Medications: 15:14 Drug: Lasix 20 mg Route: IVP; Site: left forearm; ca1 16:10 Follow up: Response: No adverse reaction ca1 15:26 Not Given (Physician Discretion): PlaVIX (clopidogrel) 300 mg PO once ca1 15:30 Drug: Nitroglycerin 0.4 mg Route: Sublingual; ca1 16:10 Follow up: Response: No adverse reaction; Pain is decreased ca1 16:24 Drug: Lovenox 1 mg/kg Route: Sub-Q; Site: right lower abdomen; ca1 16:47 Follow up: Response: No adverse reaction ca1 16:37 Drug: Lasix 20 mg Route: IVP; Site: left forearm; ca1 16:47 Follow up: Response: No adverse reaction ca1 Outcome: 15:30 Decision to Hospitalize by Provider. cp 17:06 Admitted to Med/surg accompanied by tech, via wheelchair, room 209, with chart, Report ca1 called to YURI Bautista 17:06 Condition: stable 17:06 Instructed on the need for admit. 17:28 Patient left the ED. ca1 Signatures: Dispatcher [employer] EDKS Krysta Tariq ds1 Sundeep Ellington PA PA cp Vicki Milan RN RN ca1 Von Beckwith RN RN ll1 Corrections: (The following items were deleted from the chart) 13:43 13:30 Cardiovascular: Heart tones S1 S2 present Capillary refill < 3 seconds Patient's ca1 skin is warm and dry. Rhythm is regular ca1
--- NOTE | 2020-11-08 15:31 | EDPHYS ---
Physician Documentation [facility] Name: Tang Lewis Age: 70 yrs Sex: Male : 1950 Arrival Date: 11/08/2020 Time: 12:02 Bed 25 Private MD: ED Physician Maged Fajardo HPI: 11/08 13:50 This 70 yrs old Black Male presents to ER via Ambulatory with complaints of Shortness cp Of Breath, Dizziness - CHF. 13:50 The patient has shortness of breath at rest. Onset: The symptoms/episode began/occurred cp 3 day(s) ago. 13:50 Duration: The symptoms are continuous, and are steadily getting worse. cp 13:50 Associated signs and symptoms: Pertinent positives: dizziness, orthopnea, Pertinent cp negatives: chest pain, non-productive cough, fever. Severity of symptoms: in the emergency department the symptoms are unchanged despite home interventions. Historical: - Allergies: 12:19 NSAIDS; ll1 - Home Meds: 15:17 bystolic-hctz 2.5/6.25 daily [Active]; clopidogrel 75 mg Oral tab 1 tab once daily ca1 [Active]; aspirin 81 mg Oral TbEC 1 tab once daily [Active]; - PMHx: 12:19 cardiac stent; CHF; Gout; Hypertension; ll1 - PSHx: 12:19 cervical spine sx; umbilical hernia repair (Dr. Tolentino); ll1 - Immunization history:: Flu vaccine is up to date. - Social history:: Smoking status: Patient denies any tobacco usage or history of. ROS: 13:55 Constitutional: Negative for body aches, chills, fever, poor PO intake. cp 13:55 Eyes: Negative for injury, pain, redness, and discharge. cp 13:55 ENT: Negative for ear pain, sore throat, difficulty swallowing, difficulty handling cp secretions. 13:55 Cardiovascular: Positive for orthopnea, Negative for chest pain. 13:55 Respiratory: Positive for shortness of breath, at rest. Negative for cough, wheezing. 13:55 Abdomen/GI: Negative for abdominal pain, vomiting, diarrhea, constipation, black/tarry stool, rectal bleeding. 13:55 : Negative for urinary symptoms. 13:55 Neuro: Positive for dizziness, Negative for altered mental status, syncope, weakness. 13:55 All other systems are negative. cp Exam: 13:45 ECG was reviewed by the Attending Physician. cp 14:00 Constitutional: The patient appears in no acute distress, alert, awake, cp non-diaphoretic, non-toxic, well developed, well nourished, obese. 14:00 Head/Face: Normocephalic, atraumatic. cp 14:00 Eyes: Periorbital structures: appear normal, Conjunctiva: normal, no exudate, no injection, Sclera: no appreciated abnormality, Lids and lashes: appear normal, bilaterally. 14:00 ENT: External ear(s): are unremarkable, Nose: is normal, Posterior pharynx: Airway: no evidence of obstruction, patent. 14:00 Neck: ROM/movement: is normal, is supple, without pain, no range of motions limitations. 14:00 Chest/axilla: Inspection: normal, Palpation: is normal, no crepitus, no tenderness. 14:00 Cardiovascular: Rate: normal, Rhythm: regular, Edema: ankle edema, that is very mild, JVD: is not appreciated. 14:00 Respiratory: the patient does not display signs of respiratory distress, Respirations: labored breathing, that is mild, intercostal retractions, are absent, Breath sounds: are clear throughout, no decreased breath sounds, no stridor, no wheezing. 14:00 Abdomen/GI: Inspection: abdomen appears normal, Palpation: abdomen is soft and non-tender, in all quadrants. 14:00 Back: pain, is absent, ROM is normal. 14:00 Skin: no rash present. 14:00 Neuro: Orientation: to person, place \T\ time. Mentation: is normal, Cerebellar function: is grossly normal, Motor: moves all fours, strength is normal, Sensation: is normal. 16:46 ECG was reviewed by the Attending Physician. cp Vital Signs: 12:15 BP 173 / 77; Pulse 84; Resp 18; Temp 97.8; Pulse Ox 99% on R/A; Weight 119.29 kg; ll1 Height 6 ft. 1 in. (185.42 cm); Pain 8/10; 13:34 BP 152 / 71; Pulse 70; Resp 16 S; Pulse Ox 98% on R/A; ca1 14:13 BP 152 / 71; Pulse 70; Resp 20 S; Pulse Ox 99% on R/A; ca1 15:15 BP 151 / 80; Pulse 71; Resp 16 S; Pulse Ox 98% on R/A; ca1 16:30 BP 168 / 81; Pulse 81; Resp 20 S; Pulse Ox 98% on R/A; ca1 12:15 Body Mass Index 34.70 (119.29 kg, 185.42 cm) ll1 MDM: 13:43 Patient medically screened. cp 15:30 Data reviewed: vital signs, nurses notes, lab test result(s), EKG, radiologic studies, cp plain films. 15:30 Test interpretation: by ED physician or midlevel provider: ECG, plain radiologic cp studies. Counseling: I had a detailed discussion with the patient and/or guardian regarding: the historical points, exam findings, and any diagnostic results supporting the discharge/admit diagnosis, lab results, radiology results, the need for further work-up and treatment in the hospital. Physician consultation: Orlando Abraham MD was called at 15:20, was contacted at 15:20, regarding admission, to the telemetry unit. patient's condition, would like consultation with Dr. DR Flor. 11/08 13:45 Order name: Basic Metabolic Panel; Complete Time: 02:10 11/08 15:16 Interpretation: Normal except: BUN 29; CRE 1.63; GFR 51. 11/08 13:45 Order name: CBC with Diff 11/08 15:27 Interpretation: Normal except: RBC 3.72; HGB 11.9; HCT 33.9; PLT 19; RDW 15.5; ZENIA% cp 8.6; LYM% 10.4; MN% 80.8; NEUT A 0.9; MNA 8.5. 11/08 13:45 Order name: LFT's; Complete Time: 02:10 cp 11/08 13:45 Order name: Magnesium; Complete Time: 02:10 cp 11/08 13:45 Order name: NT PRO-BNP; Complete Time: 02:10 11/08 15:16 Interpretation: Abnormal: NT PRO-BNP 1902. 11/08 13:45 Order name: PT-INR; Complete Time: 15:06 11/08 13:45 Order name: Troponin (emerg Dept Use Only); Complete Time: 02:10 11/08 15:16 Interpretation: Abnormal: TROPED 0.06. 11/08 15:20 Order name: Manual Differential EDMS 11/08 15:58 Order name: Basic Metabolic Panel EDMS 11/08 15:58 Order name: Basic Metabolic Panel EDMS 11/08 15:58 Order name: Troponin I EDMS 11/08 15:58 Order name: Troponin I; Complete Time: 02:10 EDMS 11/08 15:58 Order name: CBC with Automated Diff EDMS 11/08 13:45 Order name: XRAY Chest (1 view); Complete Time: 15:06 cp 11/08 13:45 Order name: EKG; Complete Time: 13:46 cp 11/08 15:15 Order name: CT Head Brain wo Cont; Complete Time: 16:34 cp 11/08 16:34 Interpretation: Report reviewed. cp 11/08 15:23 Order name: Diet Heart Healthy; Complete Time: 15:23 cp 11/08 15:58 Order name: CONS Physician Consult EDMS 11/08 15:58 Order name: EKG Electrocardiogram EDMS 11/08 15:58 Order name: EKG Electrocardiogram EDMS 11/08 15:58 Order name: EKG Electrocardiogram EDMS 11/08 15:58 Order name: CBC with Automated Diff EDMS 11/08 15:58 Order name: Troponin I; Complete Time: 02:10 EDMS 11/08 16:23 Order name: SARS-COV-2 RT PCR; Complete Time: 16:34 EDMS 11/08 13:45 Order name: Cardiac monitoring; Complete Time: 13:51 cp 11/08 13:45 Order name: EKG - Nurse/Tech; Complete Time: 13:51 cp 11/08 13:45 Order name: IV Saline Lock; Complete Time: 13:51 cp 11/08 13:45 Order name: Labs collected and sent; Complete Time: 13:51 cp 11/08 13:45 Order name: O2 Per Protocol; Complete Time: 13:51 cp 11/08 13:45 Order name: O2 Sat Monitoring; Complete Time: 13:51 cp 11/08 15:58 Order name: EKG Electrocardiogram EDMS 11/08 16:39 Order name: EKG; Complete Time: 16:40 ca1 11/08 16:39 Order name: EKG - Nurse/Tech; Complete Time: 16:39 ca1 EC:45 Rate is 75 beats/min. Rhythm is regular. WA interval is normal. QRS interval is cp prolonged at 102 msec. QT interval is prolonged at 422 msec. T waves are Inverted in leads II, aVF. Interpreted by me. Reviewed by me. 16:46 Rate is 80 beats/min. Rhythm is regular. WA interval is normal. QRS interval is cp prolonged at 104 msec. QT interval is normal. Interpreted by me. Reviewed by me. Administered Medications: 15:14 Drug: Lasix 20 mg Route: IVP; Site: left forearm; ca1 16:10 Follow up: Response: No adverse reaction ca1 15:26 Not Given (Physician Discretion): PlaVIX (clopidogrel) 300 mg PO once ca1 15:30 Drug: Nitroglycerin 0.4 mg Route: Sublingual; ca1 16:10 Follow up: Response: No adverse reaction; Pain is decreased ca1 16:24 Drug: Lovenox 1 mg/kg Route: Sub-Q; Site: right lower abdomen; ca1 16:47 Follow up: Response: No adverse reaction ca1 16:37 Drug: Lasix 20 mg Route: IVP; Site: left forearm; ca1 16:47 Follow up: Response: No adverse reaction ca1 Disposition: 17:58 Co-signature as Attending Physician, Maged Fajardo MD available for consultation at ps1 all times. Signature for administrative purposes. Did not see or evaluate the patient unless otherwise noted. . Disposition: 11/08/20 15:30 Hospitalization ordered by Orlando Abraham for Inpatient Admission. Preliminary diagnosis are Unspecified combined systolic (congestive) and diastolic (congestive) heart failure, Orthopnea. - Bed requested for Telemetry/MedSurg (Inpatient). - Status is Inpatient Admission. ca1 - Condition is Stable. - Problem is new. - Symptoms have improved. Signatures: Dispatcher [employer] EDKS Valentine Osborne RN RN dw Sundeep Ellington PA PA cp Singer, Phillip, MD MD ps1 Vicki Milan RN RN ca1 Von Beckwith RN RN ll1 Corrections: (The following items were deleted from the chart) 15:31 13:46 CORONAVIRUS+MR.LAB.BRZ ordered. [facility] 16:33 15:30 Hospitalization Ordered by Orlando Abraham MD for Inpatient Admission. Preliminary dw diagnosis is Unspecified combined systolic (congestive) and diastolic (congestive) heart failure; Orthopnea. Bed requested for Telemetry/MedSurg (Inpatient). Status is Inpatient Admission. Condition is Stable. Problem is new. Symptoms have improved. cp 17:28 16:33 11/08/2020 15:30 Hospitalization Ordered by Orlando Abraham MD for Inpatient ca1 Admission. Preliminary diagnosis is Unspecified combined systolic (congestive) and diastolic (congestive) heart failure; Orthopnea. Bed requested for Telemetry/MedSurg (Inpatient). Status is Inpatient Admission. Condition is Stable. Problem is new. Symptoms have improved. dw
[2020-11-08] MEDS ORDERED: NITROGLYCERIN 0.4 MG/TAB SL ONE (15:43)
[2020-11-08] MEDS ORDERED: ONDANSETRON 4 MG/2 ML VIAL IV PRN (15:56)
--- NOTE | 2020-11-08 16:19 | RAD REPORT ---
EXAM DESCRIPTION: CT - Head Brain Wo Cont - 11/08/2020 3:58 pm CLINICAL HISTORY: DIZZINESS, syncope COMPARISON: CT head May 04, 2020 TECHNIQUE: Axial 5 mm thick images of the head were obtained without IV contrast. All CT scans are performed using dose optimization technique as appropriate and may include automated exposure control or mA/KV adjustment according to patient size. FINDINGS: No intracranial hemorrhage, mass, edema or shift of mid-line structures. No acute infarcti on changes seen. No abnormal extra-axial fluid collections. Ventricles are normal. Mastoid air cells and visualized portions of the paranasal sinuses are clear. No acute bony findings. IMPRESSION: Negative non-contrast CT head examination. No significant change from comparison.
[2020-11-08] MEDS ORDERED: ENOXAPARIN 100 MG/ML SYR SQ ONE (16:29)
[2020-11-08] MEDS ORDERED: HYDRALAZINE HCL 20 MG/ML VIAL IV PRN (19:25)
--- NOTE | 2020-11-08 19:45 | P.HP ---
Certification for Inpatient Patient admitted to: Inpatient With expected LOS: >2 Midnights Patient will require the following post-hospital care: None Practitioner: I am a practitioner with admitting privileges, knowledge of patient current condition, hospital course, and medical plan of care. 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 With a history of sleep apnea, cad stage 2 ckd, htn, hypothyroidism and hyperlipidemia. He had a UT in May. Had one ad mission for chf after that in August. The patient has been having decreased exercise tolerance over the last 2 days. He has been compliant with his medications . The patient has not been noticing any swelling. However he has been having worsening exercise tolerance. The patient went to the ER. Was found to have an elevated bnp. Troponin is waiting Also of note. The patient was severely thrombocytopenic. He has had some mild thrombocytopenia for the last 6 months. Below 150. The patient has not noted any bleeding. Allergies NSAIDS Allergy (Unknown, Uncoded 09/13/20 21:43) KIDNEY DAMAGE Home Medications: Aspirin [Aspirin EC] 81 mg PO DAILY 11/08/20 Bisoprolol/Hydrochlorothiazide [Bisoprolol-Hctz 2.5-6.25 mg Tb] 1 tab PO DAILY 11/08/20 Clopidogrel Bisulfate [Plavix] 75 mg PO DAILY 11/08/20 - Past Medical/Surgical History Has patient received pneumonia vaccine in the past: Yes Diabetic: No -: hyperlipidemia -: htn -: gout -: sleep apnea -: GERMAN -: CKD -: hernia repair -: sleep apnea -: cervical spine surgery -: r knee surgery - Family History Father Notes: throat cancer Brother -: Heart disease, Kidney disease - Social History Smoking Status: Never smoker Alcohol use: No CD- Drugs: No Caffeine use: Yes Place of Residence: Home Review of Systems 10-point ROS is otherwise unremarkable Respiratory: SOB with Excertion Physical Examination - Vital Signs Temperature: 97.2 F Blood Pressure: 147/70 Pulse: 82 Respirations: 18 Pulse Ox (%): 94 - Physical Exam General: Alert, In no apparent distress HEENT: Atraumatic, PERRLA, Mucous membr. moist/pink, EOMI, Sclerae nonicteric Neck: Supple, 2+ carotid pulse no bruit, No LAD, Without JVD or thyroid abnormality Respiratory: Clear to auscultation bilaterally, Normal air movement Cardiovascular: Regular rate/rhythm, Normal S1 S2 Gastrointestinal: Normal bowel sounds, No tenderness Musculoskeletal: No tenderness Integumentary: No rashes Neurological: Normal gait, Normal speech, Normal strength at 5/5 x4 extr, Normal tone, Normal affect Lymphatics: No axilla or inguinal lymphadenopathy - Studies Laboratory Data (last 24 hrs) 11/08/20 13:52: PT 14.2 H, INR 1.23 11/08/20 13:52: WBC 10.60, Hgb 11.9 L, Hct 33.9 L, Plt Count 19 L* 11/08/20 13:52: Sodium 141, Potassium 4.0, BUN 29 H, Creatinine 1.63 H, Glucose 105, Magnesium 2.7 H, Total Bilirubin 1.0, AST 43 H, ALT 38, Alkaline Phosphatase 74 Assessment and Plan - Problems (Diagnosis) (1) Dyspnea on exertion Current Visit: Yes Status: Acute Plan: Is this an arrythmia vs acute coronary syndrome Unfortunately will not anticoagulate the patient due to thrombocytopenia. Would keep him on a monitor. check his serial troponins. Will order an echocardiogram. Consult to Dr. Flor (2) Immune thrombocytopenia Current Visit: Yes Status: Acute Plan: Have discussed the patient with Dr. Hanna. Recheck the cbc. Will order a hemolytic work up. Will transfuse him platlets if there are signs of bleeding or he drops to 15. (3) HTN (hypertension) Onset Date: 08/13/17 Current Visit: No Status: Acute Plan: will hold the lisinopril. for now. Continue the spirnolactone. Qualifiers: Hypertension type: essential hypertension (4) Hyperlipidemia Current Visit: No Status: Acute Plan: Will continue the atorvastatin. Qualifiers: Hyperlipidemia type: moderate mixed hyperlipidemia not requiring statin therapy (5) Sleep apnea Current Visit: Yes Status: Acute Plan: Will continue his cpap Qualifiers: Sleep apnea type: obstructive Qualified Code(s): G47.33 - Obstructive sleep apnea (adult) (pediatric) Discharge Plan: Home Plan to discharge in: 48 Hours - Advance Directives Does patient have a Living Will: Yes Does patient have a Durable POA for Healthcare: Yes - Code Status/Comfort Care Code Status Assessed: No Code Status: Full Code Physician Review: Patient Assessed, Agree with Above Assessment and Plan Critical Care: No Time Spent Managing Pts Care (In Minutes): 50
[2020-11-08 20:09] LABS: RBC Red Blood Cell Count 3.63 M/uL (4.33-5.43)
[2020-11-08 20:43] LABS: Absolute Lymphocytes (CBC) 1.1 K/uL (0.7-4.9); Basophils % 0.2 % (0-1.3); Hematocrit 34.3 % (39.6-49.0); MPV 9.8 fL (7.6-11.3); RBC Red Blood Cell Count 3.74 M/uL (4.33-5.43)
[2020-11-08] MEDS: ATORVASTATIN 20 MG TAB PO SCH (21:09)
[2020-11-08] MEDS: SPIRONOLACTONE 25 MG TABLET PO SCH (21:09)
[2020-11-08 21:55] LABS: Blood Morphology Comment NOT SEEN (NOT SEEN); Platelet Estimate DECR
[2020-11-09 06:01] VITALS: BMI 35.5
[2020-11-09] MEDS: LEVOTHYROXINE SOD 0.075 MG TAB PO SCH (06:27)
[2020-11-09 06:34] LABS: BUN Blood Urea Nitrogen 31 mg/dL (7-18); Bicarbonate 26 mmol/L (21-32); Glucose Level 123 mg/dL (74-106); HDL Cholesterol 39 mg/dL (40-60); Sodium Level 142 mmol/L (136-145)
[2020-11-09] MEDS: SPIRONOLACTONE 25 MG TABLET PO SCH ×2 (09:18→20:51)
[2020-11-09 10:24] LABS: Absolute Lymphocytes (CBC) 0.9 K/uL (0.7-4.9); Basophils % 0.1 % (0-1.3); Hematocrit 31.4 % (39.6-49.0); Lymphocytes % 7.1 % (15.3-44.8); MPV 9.1 fL (7.6-11.3); RBC Red Blood Cell Count 3.42 M/uL (4.33-5.43)
--- NOTE | 2020-11-09 11:00 | P.PN ---
Subjective Date of Service: 11/09/20 Primary Care Provider: Jarad Chief Complaint: dyspnea Subjective: No new changes Review of Systems 10-point ROS is otherwise unremarkable Respiratory: SOB with Excertion Physical Examination - Vital Signs Temperature: 97.6 F Blood Pressure: 153/80 Pulse: 77 Respirations: 17 Pulse Ox (%): 0 - Physical Exam General: Alert, In no apparent distress HEENT: Atraumatic, PERRLA, EOMI Neck: Supple, JVD not distended Respiratory: Clear to auscultation bilaterally, Normal air movement Cardiovascular: Regular rate/rhythm, Normal S1 S2 Gastrointestinal: Normal bowel sounds, No tenderness Musculoskeletal: No tenderness Integumentary: No rashes Neurological: Normal speech, Normal tone, Normal affect Lymphatics: No axilla or inguinal lymphadenopathy - Studies Laboratory Data (last 24 hrs) 11/08/20 13:52: PT 14.2 H, INR 1.23 11/08/20 13:52: WBC 10.60, Hgb 11.9 L, Hct 33.9 L, Plt Count 19 L* 11/08/20 13:52: Sodium 141, Potassium 4.0, BUN 29 H, Creatinine 1.63 H, Glucose 105, Magnesium 2.7 H, Total Bilirubin 1.0, AST 43 H, ALT 38, Alkaline Phosphatase 74 Assessment & Plan - Problems (Diagnosis) (1) Immune thrombocytopenia Current Visit: Yes Status: Acute Plan: Have discussed the patient with Dr. Hanna. Recheck the cbc. Will order a hemolytic work up. Will transfuse him platlets if there are signs of bleeding or he drops to 15. 11/09 Have discussed the patient at length with Dr. Hanna. 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 which is a send out lab. May take a few days. Will transfuse him a unit of plalets. Will see if he tolerates and then consider additional units. (2) Dyspnea on exertion Current Visit: Yes Status: Acute Plan: Is this an arrythmia vs acute coronary syndrome Unfortunately will not anticoagulate the patient due to thrombocytopenia. Would keep him on a monitor. check his serial troponins. Will order an echocardiogram. Consult to Dr. Flor (3) HTN (hypertension) Onset Date: 08/13/17 Current Visit: No Status: Acute Plan: will hold the lisinopril. for now. Continue the spirnolactone. Qualifiers: Hypertension type: essential hypertension (4) Hyperlipidemia Current Visit: No Status: Acute Plan: Will continue the atorvastatin. Qualifiers: Hyperlipidemia type: moderate mixed hyperlipidemia not requiring statin therapy (5) Sleep apnea Current Visit: Yes Status: Acute Plan: Will continue his cpap Qualifiers: Sleep apnea type: obstructive Qualified Code(s): G47.33 - Obstructive sleep apnea (adult) (pediatric) Physician Review: Patient Assessed, Agree with Above Assessment and Plan
[2020-11-09] MEDS ORDERED: NA CHLORIDE 0.9% 250 ML ONE (14:18)
[2020-11-09 16:42] LABS: Absolute Lymphocytes (CBC) 1.5 K/uL (0.7-4.9); Basophils % 0.2 % (0-1.3); Hematocrit 31.6 % (39.6-49.0); Lymphocytes % 7.2 % (15.3-44.8); RBC Red Blood Cell Count 3.49 M/uL (4.33-5.43)
--- NOTE | 2020-11-09 17:15 | CON ---
Date of Consultation: 11/09/2020 Reason For Consultation: Chest pain and shortness of breath. History Of Present Illness: This is a middle-aged male with history of coronary artery disease. CKD , hypertension, hypothyroidism, hyperlipidemia, presented with shortness of breath on exertion, some chest tightness. Apparently, he follows with Dr. Flor and he claimed normal stress test about 3 m onths ago as per his report. At the present time, he is pain free. Does not have any resting shortn ess of breath or orthopnea. Past Medical History: As outlined above in the HPI. Medications: Refer to reconciliation sheet for detailed list. Allergies: NSAIDS. Family History: No premature coronary artery disease or cancer. Social History: Does not smoke or drink. Does not use any drugs. Review of Systems: All systems reviewed and they were negative except what mentioned in the HPI. Physical Examination: Vital Signs: Temperature is 97.3, pulse 81, breathing 17, blood pressure 141/71, saturating 96%. General: Pleasant middle-aged male, no distress. Head and Neck: Pupils are equal, reactive to light. Intact eye movements. No JVD. No cervical lym phadenopathy. Neck: Supple. Thyroid is not enlarged. Lungs: Clear to auscultation bilaterally. No rhonchi, rales, or crackles. No accessory muscle use. Heart: Regular rate and rhythm. No extra sounds. Abdomen: Soft, nontender. Bowel sounds positive. No organomegaly. No masses or hernia. No rigidi ty or rebound. Extremities: No clubbing or cyanosis. Trace edema. Skin: No rash noted. Neurologic: Alert, awake, oriented x3. No acute focal deficits appreciated. Investigations: Chest x-ray is negative. Troponin 0.06, then 0.07. Creatinine is 1.85. Platelets 18,000, hemoglobin is 11. Assessment And Plan: Chest pain and shortness of breath with elevated NT-proBNP, slightly elevated t roponin. Recommend ischemia evaluation with exercise nuclear stress test and obtain echocardiogram. Further recommendations to follow. If this patient has positive stress test, he might not be a cand idate for anti-platelet therapy due to severe thrombocytopenia which needs to be worked up first; how ever, a stress test to risk stratify his condition and if it is abnormal, we will do an angiogram to evaluate this status. If stress test is normal, then I would recommend diuresis and echocardiogram a s outlined above. /ROSE MARY Voice ID: [id number] Report ID: [id number]
[2020-11-09] MEDS: ATORVASTATIN 20 MG TAB PO SCH (20:51)
[2020-11-09 22:33] LABS: Absolute Lymphocytes (CBC) 1.5 K/uL (0.7-4.9); Basophils % 0.1 % (0-1.3); Hematocrit 32.5 % (39.6-49.0); Lymphocytes % 6.5 % (15.3-44.8); MPV 8.3 fL (7.6-11.3); RBC Red Blood Cell Count 3.56 M/uL (4.33-5.43)
[2020-11-10] MEDS: LEVOTHYROXINE SOD 0.075 MG TAB PO SCH (06:14)
--- NOTE | 2020-11-10 08:38 | P.PN ---
Subjective Date of Service: 11/10/20 Primary Care Provider: Jarad Chief Complaint: dyspnea Subjective: No new changes Review of Systems dizziness Physical Examination - Vital Signs Temperature: 98.1 F Blood Pressure: 128/69 Pulse: 85 Respirations: 18 Pulse Ox (%): 94 - Physical Exam General: Alert, In no apparent distress HEENT: Atraumatic, PERRLA, EOMI Neck: Supple, JVD not distended Respiratory: Clear to auscultation bilaterally, Normal air movement Cardiovascular: Regular rate/rhythm, Normal S1 S2 Gastrointestinal: Normal bowel sounds, No tenderness Musculoskeletal: No tenderness Integumentary: No rashes Neurological: Normal speech, Normal tone, Normal affect Lymphatics: No axilla or inguinal lymphadenopathy - Studies Laboratory Data (last 24 hrs) 11/08/20 13:52: WBC 10.60, Hgb 11.9 L, Hct 33.9 L, Plt Count 19 L* Assessment & Plan - Problems (Diagnosis) (1) Immune thrombocytopenia Current Visit: Yes Status: Acute Plan: Have discussed the patient with Dr. Hanna. Recheck the cbc. Will order a hemolytic work up. Will transfuse him platlets if there are signs of bleeding or he drops to 15. 11/10 Will give him another unit of platlets. Will recheck his platlets. (2) Dyspnea on exertion Current Visit: Yes Status: Acute Plan: Is this an arrythmia vs acute coronary syndrome Unfortunately will not anticoagulate the patient due to thrombocytopenia. Would keep him on a monitor. check his serial troponins. Will order an echocardiogram. Consult to Dr. Flor (3) HTN (hypertension) Onset Date: 08/13/17 Current Visit: No Status: Acute Plan: will hold the lisinopril. for now. Continue the spirnolactone. Qualifiers: Hypertension type: essential hypertension (4) Hyperlipidemia Current Visit: No Status: Acute Plan: Will continue the atorvastatin. Qualifiers: Hyperlipidemia type: moderate mixed hyperlipidemia not requiring statin therapy (5) Sleep apnea Current Visit: Yes Status: Acute Plan: Will continue his cpap Qualifiers: Sleep apnea type: obstructive Qualified Code(s): G47.33 - Obstructive sleep apnea (adult) (pediatric) (6) CAD (coronary artery disease) Current Visit: Yes Status: Acute Plan: Seen by Dr Zamora plans for a stress test today. Qualifiers: Coronary Disease-Associated Artery/Lesion type: [place] artery [place] vs. transplanted heart: [place] heart Associated angina: without angina Qualified Code(s): I25.10 - Atherosclerotic heart disease of [place] coronary artery without angina pectoris Discharge Plan: Home Plan to discharge in: 24 Hours - Code Status/Comfort Care Code Status Assessed: No Physician Review: Patient Assessed, Agree with Above Assessment and Plan Critical Care: No Time Spent Managing Pts Care (In Minutes): 20
[2020-11-10] MEDS ORDERED: FENOFIBRATE 160 MG TAB PO SCH (09:00)
[2020-11-10] MEDS: SPIRONOLACTONE 25 MG TABLET PO SCH ×2 (09:40→20:22)
[2020-11-10] MEDS ORDERED: NA CHLORIDE 0.9% 250 ML ONE (09:53)
--- NOTE | 2020-11-10 10:18 | ECHO ---
HEIGHT: 6 ft 0 in WEIGHT: 262 lb 4.8 oz DATE OF STUDY: 11/09/[address]: Orlando Abraham MD 2-DIMENSIONAL: YES M.MODE: YES DOPPLER: YES COLOR FLOW: YES TDS: YES PORTABLE: YES DEFINITY: NO BUBBLE STUDY: NO DIAGNOSIS: CONGESTIVE HEART FAILURE CARDIAC HISTORY: CATHERIZATION: YES SURGERY: NO PROSTHETIC VALVE: NO PACEMAKER: NO MEASUREMENTS (cm) DIASTOLIC (NORMALS) SYSTOLIC (NORMALS) IVSd (0.6-1.2) LA Diam (1.9-4.0) LVEF % LVIDd (3.5-5.7) LVIDs (2.0-3.5) %FS % LVPWd (0.6-1.2) Ao Diam (2.0-3.7) 2 DIMENSIONAL ASSESSMENT: RIGHT ATRIUM: LEFT ATRIUM: RIGHT VENTRICLE: LEFT VENTRICLE: TRICUSPID VALVE: MITRAL VALVE: PULMONIC VALVE: AORTIC VALVE: PERICARDIAL EFFUSION: AORTIC ROOT: LEFT VENTRICULAR WALL MOTION: DOPPLER/COLOR FLOW: COMMENTS: POOR WINDOWS BUT OVERALL LEFT VENTRICULAR FUNCTION APPEARS NORMAL. RECOMMENF CONTRAST ECHO. TECHNOLOGIST: Ketty PINEDO
[2020-11-10] MEDS: DIPHENHYDRAMINE 25 MG TAB/CAP PO SCH ×2 (11:49→20:23)
[2020-11-10 15:51] LABS: Absolute Lymphocytes (CBC) 2.5 K/uL (0.7-4.9); Basophils % 0.1 % (0-1.3); Hematocrit 32.1 % (39.6-49.0); Lymphocytes % 8.9 % (15.3-44.8); MPV 9.8 fL (7.6-11.3); RBC Red Blood Cell Count 3.53 M/uL (4.33-5.43)
--- NOTE | 2020-11-10 19:04 | CON ---
Date of Consultation: 11/10/2020 Additional Consulting Physician: Orlando Abraham M.D. Reason For Consultation: Thrombocytopenia. History Of Present Illness: Mr. Lewis is a 70-year-old gentleman with a history of congestive heart failure, who presented to the emergency room on 11/08/2020 with a 2-week history of progressive weakness, dizziness, and shortness of breath on exertion. In the emergency room[place] [address], platelet count was reduced at 23,000. Review of the manual differential revealed 81% abnormal monocytic cells. I am consulted for the thrombocytopenia. Mr. Lewis gives a history of fatigue as above. He denies any headaches, dizziness, or diplopia. He has noted some shortness of breath on exertion. He denies chest pain or paroxysmal nocturnal dyspnea. He denies a history of bleeding from the mouth, nose, or gums. There is no history of abdominal pain, nausea, or vomiting. He has noted some bleeding x1 rectally from a fistula. There is no history of fever or night sweats. He does describe a 8-pounds weight loss in the past 2-3 weeks, says was told by the pictures editor to go on a low carb, no sugar diet, which he has been following for the past 3 weeks. Review of Systems: Otherwise unremarkable. Past Medical History: Significant for: 1. Hypertension. 2. Congestive heart failure. 3. Chronic kidney disease. 4. Coronary artery disease status post stent. Past Surgical History: Significant for: 1. Inguinal hernia repair. 2. Cervical spine surgery. 3. Right knee surgery. Current Medications: As follows: Lipitor 20 mg at bedtime. fenofibrate 160 mg p.o. daily, hydralazine 10 mg IV q.6 hours for high blood pressure, levothyroxine 0.075 mg p.o. q.a.m., spironolactone 25 mg p.o. b.i.d. Allergies: HE IS ALLERGIC TO IBUPROFEN (WAS TOLD TO AVOID IT DUE TO KIDNEY DYSFUNCTION). Social And Family History: Mr. Lewis lives with his and 2 daughters. He is a never smoker. Does not drink much alcohol currently or in the past. There is no history of drug use. He has 4 children, all in good health. He is 1 of 6 siblings with no history of cancer. His parents have . His father at the age of 69 from throat cancer. His mother in her 70s from unknown female problems. Physical Examination: General: Mr. Lewis is alert and oriented, appears to be in no acute distress. General examination reveals mild pallor. Vital Signs: He is afebrile at 98.1 Fahrenheit, pulse is 85, respirations 18 per minute, blood pressure 128/69, saturating at 94% on room air. HEENT: Reveals no evidence of pupillary abnormality. Vision is grossly intact. Throat examination reveals no thrush, mucosal hypertrophy or bleeding. Neck: Reveals no palpable lymphadenopathy or JVD or thyromegaly. Skin: Reveals scattered bruises over both forearms at IV stick site and other sites. No active bleeding noted. Lymph Node: Survey was unremarkable for palpable lymphadenopathy in the neck, axilla, or groin. Chest: Clear to auscultation. Heart: Sounds reveal normal S1 and S2 with an LV S4 at the base. No significant murmurs heard. Abdomen: Obese and nontender. Liver and spleen not palpable. Bowel sounds were present. Neurologic: Mr. Lewis is alert and oriented with no acute deficits. Extremities: Show no evidence of calf tenderness, swelling, or edema. Laboratory Data: CBC done yesterday at 10 p.[place] [address], hemoglobin 11.4, hematocrit 32.5, [place] [address]. A smear review done yesterday showed abnormal increase in monocytoid cells with abnormal increase in blasts. A flow cytometry was sent yesterday and results available this morning suggest that he has 82% blasts on flow, which is consistent with acute leukemia. Chemistries revealed renal dysfunction. GFR is at 44. LDH done on admission was significantly elevated at 588. Assessment And Plan: 1. Acute leukemia. A flow cytometry has confirmed that he has 80% blasts, which is consistent with acute leukemia. I had a long discussion with the patient and his (on speaker phone) about the natural history of acute leukemia. We also discussed that therapy for acute leukemia is not available locally and that we would initiate a transfer to [facility] or another facility capable of providing the necessary workup and therapy for this disease. We discussed briefly that most acute leukemia can be rapidly fatal if not treated and even with treatment prognosis is guarded. We will continue to support him with transfusions and I will start him on allopurinol today in anticipation of transfer. 2. Thrombocytopenia. The platelet count was 31,000 today. He received 1 unit of single donor platelets yesterday when his platelet count had dropped to 18,000. We would continue to monitor his CBC daily while he awaits transfer and transfer single donor platelets if his platelet count is less than 20,000. 3. Anemia. He has a mild anemia, likely due to the leukemia. No intervention is warranted at this time. I would suggest a transfusion of 1 unit of packed red blood cells if his hemoglobin were to drop significantly below 8 g/dL. Thank you for asking us to see him. Please do not hesitate to call me if you have any other questions. INESSA/MODL Voice ID: [id number] Report ID: [id number] MORIAH
--- NOTE | 2020-11-10 20:01 | P.DS ---
Admission Date: 11/08/20 Discharge Date: 11/10/20 Primary Care Provider: Jarad Discharge Condition: FAIR Reason for Admission: dyspnea - Problems (1) Immune thrombocytopenia Current Visit: Yes Status: Acute (2) Dyspnea on exertion Current Visit: Yes Status: Acute (3) HTN (hypertension) Onset Date: 08/13/17 Current Visit: No Status: Acute Qualifiers: Hypertension type: essential hypertension (4) Hyperlipidemia Current Visit: No Status: Acute Qualifiers: Hyperlipidemia type: moderate mixed hyperlipidemia not requiring statin therapy (5) Sleep apnea Current Visit: Yes Status: Acute Qualifiers: Sleep apnea type: obstructive Qualified Code(s): G47.33 - Obstructive sleep apnea (adult) (pediatric) (6) CAD (coronary artery disease) Current Visit: Yes Status: Acute Qualifiers: Coronary Disease-Associated Artery/Lesion type: [place] artery [place] vs. 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 With a history of sleep apnea, cad stage 2 ckd, htn, hypothyroidism and hyperlipidemia. He had a [place] in May. Had one admission for chf after that in August. The patient has been having decreased exercise tolerance over the last 2 days. He has been compliant with his medications . The patient has not been noticing any swelling. However he has been having worsening exercise tolerance. The patient went to the ER. Was found to have an elevated bnp. Troponin is waiting Also of note. The patient was severely thrombocytopenic. He has had some mild thrombocytopenia for the last 6 months. Below 150. The patient has not noted any bleeding. Hospital Course: Patient came in for shortness of breath. He was found to have severe thrombocytopenia. He was transfused 2 units of platlets. Hemetology was consult. The patient had flow cytometer of the blood. He had increased monocytes. 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 Have discussed it with the patient. Will transfer him to [facility] for work up an treatment. Vital Signs/Physical Exam: Temp Pulse Resp BP Pulse Ox 97.9 F 86 16 169/84 H 96 11/10/20 16:00 11/10/20 16:00 11/10/20 16:00 11/10/20 16:00 11/10/20 16:00 General: Alert, In no apparent distress HEENT: Atraumatic, PERRLA, EOMI Neck: Supple, JVD not distended Respiratory: Clear to auscultation bilaterally, Normal air movement Cardiovascular: Regular rate/rhythm, Normal S1 S2 Gastrointestinal: Normal bowel sounds, No tenderness Musculoskeletal: No tenderness Integumentary: No rashes Neurological: Normal speech, Normal tone, Normal affect Lymphatics: No axilla or inguinal lymphadenopathy Laboratory Data at Discharge: WBC 28.50 K/uL (4.3-10.9) H* D 11/10/20 15:22 Hgb 11.4 g/dL (13.6-17.9) L 11/10/20 15:22 Hct 32.1 % (39.6-49.0) L 11/10/20 15:22 Plt Count 48 K/uL (152-406) L* D 11/10/20 15:22 PT 14.2 SECONDS (9.5-12.5) H 11/08/20 13:52 INR 1.23 11/08/20 13:52 Sodium 142 mmol/L (136-145) 11/09/20 05:46 Potassium 4.0 mmol/L (3.5-5.1) 11/09/20 05:46 BUN 31 mg/dL (7-18) H 11/09/20 05:46 Creatinine 1.85 mg/dL (0.55-1.3) H 11/09/20 05:46 Glucose 123 mg/dL (74-106) H 11/09/20 05:46 Magnesium 2.7 mg/dL (1.8-2.4) H 11/08/20 13:52 Total Bilirubin 1.0 mg/dL (0.2-1.0) 11/08/20 13:52 AST 43 U/L (15-37) H 11/08/20 13:52 ALT 38 U/L (12-78) 11/08/20 13:52 Alkaline Phosphatase 74 U/L (45-117) 11/08/20 13:52 Troponin I 0.07 ng/mL (0.0-0.045) H 11/09/20 00:45 Triglycerides 486 mg/dL (<150) H 11/09/20 05:46 Cholesterol 248 mg/dL (<200) H 11/09/20 05:46 LDL Cholesterol Direct [place]NER 11/09/20 05:46 HDL Cholesterol 39 mg/dL (40-60) L 11/09/20 05:46 Cholesterol/HDL Ratio 6.36 11/09/20 05:46 Home Medications: Aspirin [Aspirin EC] 81 mg PO DAILY 11/08/20 Bisoprolol/Hydrochlorothiazide [Bisoprolol-Hctz 2.5-6.25 mg Tb] 1 tab PO DAILY 11/08/20 Clopidogrel Bisulfate [Plavix] 75 mg PO DAILY 11/08/20 Followup: Orlando Abraham MD [Primary Care Provider] - Janet Wadsworth MD [ACTIVE - CAN ADMIT] - Physician Review: Patient Assessed, Agree with Above Assessment and Plan Time spent managing pt's care (in minutes): 45
[2020-11-10 20:21] VITALS: BP 193/81; TEMP 98.1
[2020-11-10] MEDS: ATORVASTATIN 20 MG TAB PO SCH (20:22)
[2020-11-10 20:29] VITALS: O2SAT 95
[2020-11-11] MEDS ORDERED: allopurinoL 100 MG TAB PO SCH (09:00)
== END 2020-11-10 20:34 | disposition home or self-care (01) | DRG 813 ==
LOC: ER 11:59 → ERHOLD 15:55 → 2ND 17:07
PROVIDERS: ADMIT Internal Medicine; ATTEND Internal Medicine
PROC: 5A09457 Assistance with Respiratory Ventilation, 24-96 Consecutive Hours, Continuous Positive Airway Pressure (ICD-10-PCS; 2020-11-08)
PROC: 30233R1 Transfusion of Nonautologous Platelets into Peripheral Vein, Percutaneous Approach (ICD-10-PCS; principal; 2020-11-09)
DX: D69.6 Thrombocytopenia, unspecified (principal); C92.00 Acute myeloblastic leukemia, not having achieved remission; I12.9 Hypertensive chronic kidney disease with stage 1 through stage 4 chronic kidney disease, or unspecified chronic kidney disease; N18.2 Chronic kidney disease, stage 2 (mild); G47.33 Obstructive sleep apnea (adult) (pediatric); M10.9 Gout, unspecified; E78.2 Mixed hyperlipidemia; I25.10 Atherosclerotic heart disease of native coronary artery without angina pectoris; I25.2 Old myocardial infarction; Z79.02 Long term (current) use of antithrombotics/antiplatelets; Z79.82 Long term (current) use of aspirin; Z79.899 Other long term (current) drug therapy; Z95.5 Presence of coronary angioplasty implant and graft; Z20.822 Contact with and (suspected) exposure to COVID-19
CPT/HCPCS: 36415; 36430; 70450; 71045; 80048; 80061; 80076; 82274; 83615; 83735; 83880; 84443; 84484; 85025; 85044; 85384; 85610; 86900; 86901; 93005; 93306; 94660; 96372; 96374; 99285; J0360; J1650; J1940; J7050; P9035; U0003